=== PATIENT | male | born 1975 | race Caucasian/White ===

== ENCOUNTER 2017-04-27 11:13 | Inpatient (IN) | payer SELFPAY ==
[2017-04-27] VITALS (9 sets, daily range): BP systolic 118–147; BP diastolic 76–86; PULSE 56–79; RESP 16–18; TEMP 97.3–99.3; O2SAT 95–100
[~2017-04-27] VITALS: Ht 175.3 cm; Wt 98.3 kg
[~2017-04-27 11:13] MED LIST: ALPR.25 PO; AMBI10TA PO; GABA300C5 PO; HYDR-3366 PO; HYDR50CA PO; LAMO25TA PO; LITH300C2 PO
[2017-04-27] MEDS ORDERED: MORPHINE SULFATE 4 MG/ML INJ IV PUSH ONE ×2 (11:30→12:15)
[2017-04-27] MEDS ORDERED: SODIUM CHLORIDE 0.9% FLUSH 10 ML FLUSH IVF PRN (11:30)
[2017-04-27 11:59] LABS: AUTOMATED NEUTROPHIL # 11.9 TH/MM3 (1.8-7.7); BASOPHIL # 0.1 TH/MM3 (0-0.2); BASOPHIL % 0.8 % (0.0-2.0); EOSINOPHIL # 0.2 TH/MM3 (0-0.4); EOSINOPHIL % 1.2 % (0.0-4.0); HEMATOCRIT 41.4 % (39.0-51.0); HEMO FLAGS DIFF FINAL; LYMPH % 13.7 % (9.0-44.0); LYMPHOCYTE # 2.1 TH/MM3 (1.0-4.8); MEAN CELL VOLUME 88.5 FL (80.0-100.0); MEAN CORPUSCULAR HEMOGLOBIN 29.3 PG (27.0-34.0); MEAN CORPUSCULAR HGB CONC 33.1 % (32.0-36.0); MONO % 6.3 % (0.0-8.0); PLATELET COUNT 288 TH/MM3 (150-450); RED BLOOD COUNT 4.68 MIL/MM3 (4.50-5.90); RED CELL DISTRIBUTION WIDTH 13.9 % (11.6-17.2); WHITE BLOOD COUNT 15.2 TH/MM3 (4.0-11.0)
[2017-04-27 12:13] LABS: INTERNATIONAL NORMALIZED RATIO 0.8 RATIO; PROTHROMBIN TIME - PATIENT 9.3 SEC (9.8-11.6)
--- NOTE | 2017-04-27 12:15 | RADRPT ---
EXAM DATE/TIME: 04/27/2017 11:55 [facility] COMPARISON: CHEST SINGLE AP, January 03, 2016, 10:49. INDICATIONS : Chest pain today. MEDICAL HISTORY : Myocardial infarction. Lymphoma. Asthma. SURGICAL HISTORY : Exc. abdominal lymphoma. Right lower leg amputation. ENCOUNTER: Initial ACUITY: 1 day PAIN SCORE: 10/10 LOCATION: Bilateral chest FINDINGS: Single AP view of the chest. Right paratracheal asymmetry with mass effect on the trachea. Lungs are clear. Cardiac silhouette within normal limits. No evidence of pleural effusion or pneumothorax. CONCLUSION: Possible right paratracheal mass. Recommend chest CT with contrast for further evaluation if this is not a known finding. Nico Hendrickson MD on April 27, 2017 at 12:11 Board Certified Radiologist. This report was verified electronically.
[2017-04-27 12:20] LABS: APTT (PATIENT) 24.9 SEC (24.3-30.1)
[2017-04-27 12:21] LABS: ALT (GPT) 43 U/L (12-78)
[2017-04-27 12:28] LABS: ALKALINE PHOSPHATASE 116 U/L (45-117); ANION GAP 8 MEQ/L (5-15); AST (GOT) 44 U/L (15-37); BICARBONATE 21.2 MEQ/L (21.0-32.0); BLOOD UREA NITROGEN 10 MG/DL (7-18); CHLORIDE 109 MEQ/L (98-107); CREATINE KINASE 156 U/L (39-308); GLOMERULAR FILTRATION RATE 91 ML/MIN (>89); MAGNESIUM 2.2 MG/DL (1.5-2.5); SODIUM (NA) 138 MEQ/L (136-145); TOTAL BILIRUBIN ADULT 0.4 MG/DL (0.2-1.0)
[2017-04-27 12:29] LABS: POTASSIUM 5.2 MEQ/L (3.5-5.1)
[2017-04-27 12:57] LABS: CKMB LESS THAN 0.5 NG/ML (0.5-3.6)
--- NOTE | 2017-04-27 13:34 | PD ---
HPI Chief Complaint: Chest Pain Time Seen by Provider: 11:25 Travel History International Travel<30 days: No Contact w/Intl Traveler<30days: No Traveled to known affect area: No History of Present Illness HPI Patient is a 41-year-old male presents emergency department with sharp chest pain the middle of his chest without radiation. Patient states he has a history of heart attack in the past and did not require stents but feels very similar. Patient states he also has a history of lymphoma. Does not endorse any weight loss hemoptysis or shortness of breath. Mild nausea without vomiting. No diarrhea no constipation ability pain. Patient states symptoms been going on for the past few hours and gradually worsening. Symptoms are moderate to severe. PFSH Past Medical History Hx Anticoagulant Therapy: No Anxiety: Yes Depression: Yes Cancer: Yes (lymphoma surgery 5 yrs ago) Cardiovascular Problems: Yes (NE X2 ) Chemotherapy: Yes (10 YEARS AGO, LYMPHOMA) Cerebrovascular Accident: Yes (HEAT STROKE) Diabetes: No Diminished Hearing: No Endocrine: No Gastrointestinal Disorders: No Genitourinary: No Hepatitis: No Hiatal Hernia: No Immune Disorder: No Musculoskeletal: No Neurologic: No Psychiatric: Yes (bipolar) Reproductive: No Respiratory: Yes (ASTHMA) Immunizations Current: Yes Thyroid Disease: No Tetanus Vaccination: < 5 Years Past Surgical History Abdominal Surgery: Yes (EXC. ABDOMINAL LYMPHOMA) AICD: No Cardiac Surgery: Yes (EXC. LYMPHOMA HEART WALL (2005)) Ear Surgery: No Endocrine Surgery: No Eye Surgery: No Genitourinary Surgery: No Gynecologic Surgery: No Joint Replacement: No Oral Surgery: No Pacemaker: No Thoracic Surgery: No Social History Alcohol Use: No Tobacco Use: No Substance Use: Yes (Marijuana, daily) Allergies-Medications (Allergen,Severity, Reaction): Coded Allergies: No Known Allergies (Verified , 07/13/16) Reported Meds & Prescriptions Reported Meds & Active Scripts Active [place] Carbonate 300 Mg Cap 300 Mg PO BID 14 Days Please see psychaitrist soon to refill this medication Reported [place] (Hydrocodone-Acetaminophen) 10-325 Mg Tab 1 Tab PO Q4H PRN Gabapentin 300 Mg Cap 400 Mg PO TID Review of Systems Except as stated in HPI: all other systems reviewed are Neg Physical Exam Narrative GENERAL: Well-developed well-nourished, uncomfortable.] SKIN: Focused skin assessment warm/dry. HEAD: Atraumatic. Normocephalic. EYES: Pupils equal and round. No scleral icterus. No injection or drainage. ENT: No nasal bleeding or discharge. Mucous membranes pink and moist. NECK: Trachea midline. No JVD. CARDIOVASCULAR: Regular rate and rhythm. No murmur appreciated. 2+ bilateral equal pulses in all 4 extremities, patient has pain with palpation to his anterior chest. RESPIRATORY: No accessory muscle use. Clear to auscultation. Breath sounds equal bilaterally. GASTROINTESTINAL: Abdomen soft, non-tender, nondistended. Hepatic and splenic margins not palpable. MUSCULOSKELETAL: No obvious deformities. No clubbing. No cyanosis. No edema. Patient has evidence of BKA on the left. NEUROLOGICAL: Awake and alert. No obvious cranial nerve deficits. Motor grossly within normal limits. Normal speech. PSYCHIATRIC: Appropriate mood and affect; insight and judgment normal. Data Data Last Documented VS Vital Signs Date Time Temp Pulse Resp B/P Pulse Ox O2 Delivery O2 Flow Rate FiO2 04/27/17 16:00 95 Nasal Cannula 1.00 04/27/17 15:44 16 04/27/17 12:44 68 141/84 04/27/17 11:39 97.3 Orders Electrocardiogram (04/27/17 11:29) Ckmb (Isoenzyme) Profile (04/27/17 11:29) Complete Blood Count With Diff (04/27/17 11:29) Comprehensive Metabolic Panel (04/27/17 11:29) Magnesium (Mg) (04/27/17 11:29) Prothrombin Time / Inr (Pt) (04/27/17 11:29) Act Partial Throm Time (Ptt) (04/27/17 11:29) Troponin I (04/27/17 11:29) Lipase (04/27/17 11:29) Chest, Single Ap (04/27/17 11:29) Ecg Monitoring (04/27/17 11:29) Bilateral Bp Monitoring (04/27/17 11:29) Iv Access Insert/Monitor (04/27/17 11:29) Oximetry (04/27/17 11:29) Oxygen Administration (04/27/17 11:29) Morphine Inj (Morphine Inj) (04/27/17 11:30) Sodium Chloride 0.9% Flush (Ns Flush) (04/27/17 11:30) Morphine Inj (Morphine Inj) (04/27/17 12:15) Ct Pulmonary Angiogram (04/27/17 ) CKMB (04/27/17 11:30) CKMB% (04/27/17 11:30) Metoclopramide Inj (Reglan Inj) (04/27/17 14:00) Iohexol 350 Inj (Omnipaque 350 Inj) (04/27/17 14:07) Hydromorphone Pf Inj (Dilaudid Pf Inj) (04/27/17 15:00) Admit To Inpatient (04/27/17 ) Vital Signs (Adult) Q4H (04/27/17 15:46) Activity Oob With Assistance (04/27/17 15:46) Diet Regular Basic (04/27/17 Dinner) Sodium Chloride 0.9% Flush (Ns Flush) (04/27/17 16:00) Sodium Chloride 0.9% Flush (Ns Flush) (04/27/17 21:00) Acetaminophen (Tylenol) (04/27/17 16:00) Ondansetron Inj (Zofran Inj) (04/27/17 16:00) Basic Metabolic Panel (Bmp) (04/28/17 06:00) Complete Blood Count With Diff (04/28/17 06:00) Resp Oxygen Alf C Titrat 1-4 L (04/27/17 ) Heparin Inj (Heparin Inj) (04/27/17 17:00) Naloxone Inj (Narcan Inj) (04/27/17 16:00) Docusate Sodium-Senna ([place]-Colace) (04/27/17 21:00) Magnesium Hydroxide Liq (Milk Of Magnesi (04/27/17 16:00) Sennosides (Senokot) (04/27/17 16:00) Bisacodyl Supp (Dulcolax Supp) (04/27/17 16:00) Lactulose Liq (Lactulose Liq) (04/27/17 16:00) Inpatient Certification (04/27/17 ) Consult Cardiothoracic Surgery (04/27/17 ) Consult Medical Oncology (04/27/17 ) Oxycodone-Acetamin 7.5-325 Mg (Percocet (04/27/17 16:30) Hydromorphone Pf Inj (Dilaudid Pf Inj) (04/27/17 16:30) Admit Order (Ed Use Only) (04/27/17 ) Labs Laboratory Tests Test 04/27/17 11:30 White Blood Count 15.2 TH/MM3 Red Blood Count 4.68 MIL/MM3 Hemoglobin 13.7 GM/DL Hematocrit 41.4 % Mean Corpuscular Volume 88.5 FL Mean Corpuscular Hemoglobin 29.3 PG Mean Corpuscular Hemoglobin 33.1 % Concent Red Cell Distribution Width 13.9 % Platelet Count 288 TH/MM3 Mean Platelet Volume 8.3 FL Neutrophils (%) (Auto) 78.0 % Lymphocytes (%) (Auto) 13.7 % Monocytes (%) (Auto) 6.3 % Eosinophils (%) (Auto) 1.2 % Basophils (%) (Auto) 0.8 % Neutrophils # (Auto) 11.9 TH/MM3 Lymphocytes # (Auto) 2.1 TH/MM3 Monocytes # (Auto) 1.0 TH/MM3 Eosinophils # (Auto) 0.2 TH/MM3 Basophils # (Auto) 0.1 TH/MM3 CBC Comment DIFF FINAL Differential Comment Prothrombin Time 9.3 SEC Prothromb Time International 0.8 RATIO Ratio Activated Partial 24.9 SEC Thromboplast Time Sodium Level 138 MEQ/L Potassium Level 5.2 MEQ/L Chloride Level 109 MEQ/L Carbon Dioxide Level 21.2 MEQ/L Anion Gap 8 MEQ/L Blood Urea Nitrogen 10 MG/DL Creatinine 0.92 MG/DL Estimat Glomerular Filtration 91 ML/MIN Rate Random Glucose 101 MG/DL Calcium Level 9.0 MG/DL Magnesium Level 2.2 MG/DL Total Bilirubin 0.4 MG/DL Aspartate Amino Transf 44 U/L (AST/SGOT) Alanine Aminotransferase 43 U/L (ALT/SGPT) Alkaline Phosphatase 116 U/L Total Creatine Kinase 156 U/L Creatine Kinase MB LESS THAN 0.5 NG/ML Troponin I LESS THAN 0.02 NG/ML Total Protein 7.5 GM/DL Albumin 3.5 GM/DL Lipase 103 U/L [facility] Medical Decision Making Medical Screen Exam Complete: Yes Emergency Medical Condition: Yes Interpretation(s) EKG shows sinus bradycardia with a rate of 56 with a normal axis normal R-wave progression. First degree heart block with a AL interval of 209. Otherwise intervals within normal limits. No concerning ST T changes. This borderline EKG. Differential Diagnosis ACS seems unlikely, acute NE seems unlikely, PE, recurrent lymphoma. Narrative Course Patient was roomed emergency department, multiple doses of IV narcotics were given. He did receive nitroglycerin in route which did not relieve his pain. Patient's labs are reassuring, EKG reassuring, troponin negative. He does have indications for PE study given he has a history of BKA. Patient tells me he does not use cocaine however cocaine abuse is on his chart. Last 24 hours Impressions Chest X-Ray 04/27/17 1129 Signed Impressions: Service Date/Time: Thursday, April 27, 2017 11:55 - CONCLUSION: Possible right paratracheal mass. Recommend chest CT with contrast for further evaluation if this is not a known finding. Nico Hendrickson MD CT Angiography 04/27/17 0000 Signed Impressions: Service Date/Time: Thursday, April 27, 2017 13:58 - CONCLUSION: 1. 4.2 x 5.5 cm right paratracheal mass lesion which displaces the trachea leftward. This appears isolated. 2. Bibasilar atelectatic changes with no confluent infiltrate or pulmonary embolus. Aki Edwards MD Results were discussed with the patient and he is notably upset. I discussed that he should be admitted for further workup at this time and he is agreeable. Patient was discussed with Dr. Gomez who will admit. Diagnosis Primary Impression: Peritracheal mass Additional Impressions: History of lymphoma Chest pain Qualified Code: R07.9 - Chest pain, unspecified type Admitting Information Admitting Physician Requests: Admit Condition: Stable Rajesh Vega MD April 27, 2017 13:34
[2017-04-27] MEDS ORDERED: METOCLOPRAMIDE HCL 10 MG/2 ML VIAL IV PUSH ONE (14:00)
[2017-04-27] MEDS ORDERED: IOHEXOL 350 MG/ML 10 ML VIAL (for RAD DIAG) IV ONE (14:07)
--- NOTE | 2017-04-27 14:36 | RADRPT ---
EXAM DATE/TIME: 04/27/2017 13:58 [facility] COMPARISON: No previous studies available for comparison. INDICATIONS : Chest pain, dyspnea IV CONTRAST: 75 cc Omnipaque 350 (iohexol) IV RADIATION DOSE: 4.66 CTDIvol (mGy) MEDICAL HISTORY : Cardiovascular disease. Lymphoma. SURGICAL HISTORY : Right AKA ENCOUNTER: Initial ACUITY: 1 day PAIN SCALE: 5/10 LOCATION: chest TECHNIQUE: Volumetric scanning of the chest was performed using a pulmonary embolism protocol MIP images were re constructed. Using automated exposure control and adjustment of the mA and/or kV according to patien t size, radiation dose was kept as low as reasonably achievable to obtain optimal diagnostic quality images. FINDINGS: PULMONARY ARTERIES: No filling defects are seen in the pulmonary arteries through the segmental level. LUNGS: Mild dependent atelectatic changes bilaterally. No pneumothorax or infiltrate. No concerning pulmona ry nodule is visualized. PLEURAE: There is no pleural thickening or pleural effusion. MEDIASTINUM: Large, apparently isolated 4.2 x 5.5 cm mediastinal mass lesion in the right paratracheal distributio n. This displaces the trachea leftward. No additional adenopathy identified. MUSCULOSKELETAL: Within normal limits for patient age. MISCELLANEOUS: The visualized upper abdominal organs demonstrate no acute abnormality. CONCLUSION: 1. 4.2 x 5.5 cm right paratracheal mass lesion which displaces the trachea leftward. This appears iso lated. 2. Bibasilar atelectatic changes with no confluent infiltrate or pulmonary embolus. Aki Edwards MD on April 27, 2017 at 14:25 Board Certified Radiologist. This report was verified electronically.
[2017-04-27] MEDS ORDERED: HYDROmorphone HCL PF 1 MG/ML VIAL IV PUSH ONE ×2 (15:00→21:15)
[2017-04-27] MEDS ORDERED: ACETAMINOPHEN 325 MG TAB PO PRN (16:00)
[2017-04-27] MEDS ORDERED: MAGNESIUM HYDROXIDE SUSP 30 ML CUP PO PRN (16:00)
[2017-04-27] MEDS ORDERED: LACTULOSE SYRUP 20 GM/30 ML CUP PO PRN (16:00)
[2017-04-27] MEDS ORDERED: SENNOSIDES 8.6 MG TAB PO PRN (16:00)
[2017-04-27] MEDS ORDERED: SODIUM CHLORIDE 0.9% FLUSH 10 ML FLUSH IV FLUSH PRN (16:00)
[2017-04-27] MEDS ORDERED: NALOXONE HCL 0.4 MG/ML AMP IV PRN (16:00)
[2017-04-27] MEDS ORDERED: BISACODYL 10 MG SUPP RECTAL PRN (16:00)
[2017-04-27] MEDS ORDERED: HEPARIN SODIUM - SQ 10,000 UNITS/ML VIAL SQ SCH (17:00)
[2017-04-27] MEDS: HYDROmorphone HCL PF 1 MG/ML VIAL IV PUSH PRN (17:53)
[2017-04-27] MEDS: oxyCODONE/ACETAMINOPHEN 7.5 MG/325 MG TAB PO PRN (18:24)
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
[2017-04-27] MEDS: SODIUM CHLORIDE 0.9% FLUSH 10 ML FLUSH IV FLUSH SCH (20:08)
[2017-04-27] MEDS: DOCUSATE SODIUM 50 MG/SENNA 8.6 MG TAB PO SCH (20:08)
[2017-04-27] MEDS: ONDANSETRON HCL 4 MG/2 ML VIAL IVP PRN (21:23)
[2017-04-27] MEDS ORDERED: LITHIUM CARBONATE 300 MG TAB PO ONE (22:15)
[2017-04-28] VITALS (9 sets, daily range): BP systolic 114–129; BP diastolic 66–78; PULSE 72–84; RESP 16; TEMP 98–99.9; O2SAT 94–98
[2017-04-28] MEDS: HYDROmorphone HCL PF 1 MG/ML VIAL IV PUSH PRN ×8 (00:16→21:29)
[2017-04-28] MEDS: ONDANSETRON HCL 4 MG/2 ML VIAL IVP PRN ×3 (03:27→20:07)
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
[2017-04-28 07:30] LABS: AUTOMATED NEUTROPHIL # 17.3 TH/MM3 (1.8-7.7); BASOPHIL % 0.1 % (0.0-2.0); EOSINOPHIL % 0.2 % (0.0-4.0); HEMATOCRIT 43.2 % (39.0-51.0); HEMO FLAGS DIFF FINAL; LYMPH % 8.8 % (9.0-44.0); LYMPHOCYTE # 1.8 TH/MM3 (1.0-4.8); MEAN CELL VOLUME 88.9 FL (80.0-100.0); MEAN CORPUSCULAR HEMOGLOBIN 29.1 PG (27.0-34.0); MEAN CORPUSCULAR HGB CONC 32.8 % (32.0-36.0); MONO % 8.5 % (0.0-8.0); NEUT % 82.4 % (16.0-70.0); PLATELET COUNT 293 TH/MM3 (150-450); RED BLOOD COUNT 4.86 MIL/MM3 (4.50-5.90); RED CELL DISTRIBUTION WIDTH 14.1 % (11.6-17.2)
[2017-04-28 08:00] LABS: BICARBONATE 27.4 MEQ/L (21.0-32.0); POTASSIUM 3.5 MEQ/L (3.5-5.1)
[2017-04-28] MEDS ORDERED: LORazepam 2 MG/ML VIAL IV PUSH ONE (08:00)
[2017-04-28] MEDS ORDERED: MORPHINE SULFATE 4 MG/ML INJ IV PUSH ONE (08:00)
[2017-04-28] MEDS ORDERED: LIDOCAINE HCL 2% 50 ML VIAL ONE (08:05)
[2017-04-28] MEDS ORDERED: LIDOCAINE HCL 1% 20 ML VIAL INFIL ONE (08:15)
[2017-04-28] MEDS ORDERED: LIDOCAINE HCL 2% 20 ML VIAL INFIL ONE (08:15)
[2017-04-28] MEDS: DOCUSATE SODIUM 50 MG/SENNA 8.6 MG TAB PO SCH ×2 (08:42→23:06)
[2017-04-28] MEDS: SODIUM CHLORIDE 0.9% FLUSH 10 ML FLUSH IV FLUSH SCH ×2 (08:42→23:07)
[2017-04-28] MEDS ORDERED: DIATRIZOATE MEGLUM/DIATRIZOATE SOD 9 ML CUP PO ONE (09:30)
--- NOTE | 2017-04-28 09:47 | PD.ONC.PN ---
Subjective Subjective Remarks Afebrile overnight. Patient resting comfortably in bed. Continues to have pain in his chest, especially when he lays on it. Objective Data Date Time Temp Pulse Resp B/P Pulse Ox O2 Delivery O2 Flow Rate FiO2 04/28/17 09:14 94 Nasal Cannula 2.50 04/28/17 04:00 99.9 77 16 129/70 98 04/28/17 00:13 98 Nasal Cannula 3.00 04/27/17 23:40 98.7 79 16 118/76 97 04/27/17 20:11 66 04/27/17 18:57 99.3 70 16 136/86 96 04/27/17 18:27 65 18 134/78 99 Nasal Cannula 2 04/27/17 18:24 18 04/27/17 16:00 95 Nasal Cannula 1.00 04/27/17 15:44 16 04/27/17 13:14 16 04/27/17 12:44 68 18 141/84 97 Room Air 04/27/17 11:59 16 04/27/17 11:45 20 100 Nasal Cannula 2 04/27/17 11:44 68 145/81 04/27/17 11:39 100 Nasal Cannula 2 04/27/17 11:39 97.3 66 16 147/86 100 Nasal Cannula 2 04/27/17 11:27 97.3 56 16 147/86 100 Result Diagram: 04/28/17 0651 04/28/17 0651 Laboratory Results Laboratory Tests Test 04/27/17 04/27/17 04/28/17 11:30 22:55 06:51 White Blood Count 15.2 TH/MM3 21.0 TH/MM3 Red Blood Count 4.68 MIL/MM3 4.86 MIL/MM3 Hemoglobin 13.7 GM/DL 14.2 GM/DL Hematocrit 41.4 % 43.2 % Mean Corpuscular Volume 88.5 FL 88.9 FL Mean Corpuscular Hemoglobin 29.3 PG 29.1 PG Mean Corpuscular Hemoglobin 33.1 % 32.8 % Concent Red Cell Distribution Width 13.9 % 14.1 % Platelet Count 288 TH/MM3 293 TH/MM3 Mean Platelet Volume 8.3 FL 8.2 FL Neutrophils (%) (Auto) 78.0 % 82.4 % Lymphocytes (%) (Auto) 13.7 % 8.8 % Monocytes (%) (Auto) 6.3 % 8.5 % Eosinophils (%) (Auto) 1.2 % 0.2 % Basophils (%) (Auto) 0.8 % 0.1 % Neutrophils # (Auto) 11.9 TH/MM3 17.3 TH/MM3 Lymphocytes # (Auto) 2.1 TH/MM3 1.8 TH/MM3 Monocytes # (Auto) 1.0 TH/MM3 1.8 TH/MM3 Eosinophils # (Auto) 0.2 TH/MM3 0.0 TH/MM3 Basophils # (Auto) 0.1 TH/MM3 0.0 TH/MM3 CBC Comment DIFF FINAL DIFF FINAL Differential Comment Prothrombin Time 9.3 SEC Prothromb Time International 0.8 RATIO Ratio Activated Partial 24.9 SEC Thromboplast Time Sodium Level 138 MEQ/L 135 MEQ/L Potassium Level 5.2 MEQ/L 3.5 MEQ/L Chloride Level 109 MEQ/L 100 MEQ/L Carbon Dioxide Level 21.2 MEQ/L 27.4 MEQ/L Anion Gap 8 MEQ/L 8 MEQ/L Blood Urea Nitrogen 10 MG/DL 7 MG/DL Creatinine 0.92 MG/DL 0.90 MG/DL Estimat Glomerular Filtration 91 ML/MIN 93 ML/MIN Rate Random Glucose 101 MG/DL 125 MG/DL Calcium Level 9.0 MG/DL 9.1 MG/DL Magnesium Level 2.2 MG/DL Total Bilirubin 0.4 MG/DL Aspartate Amino Transf 44 U/L (AST/SGOT) Alanine Aminotransferase 43 U/L (ALT/SGPT) Alkaline Phosphatase 116 U/L Total Creatine Kinase 156 U/L Creatine Kinase MB LESS THAN 0.5 NG/ML Troponin I LESS THAN 0.02 NG/ML Total Protein 7.5 GM/DL Albumin 3.5 GM/DL Lipase 103 U/L [place] Level 0.3 MEQ/L Imaging Studies Last 24 hours Impressions Chest X-Ray 04/27/17 1129 Signed Impressions: Service Date/Time: Thursday, April 27, 2017 11:55 - CONCLUSION: Possible right paratracheal mass. Recommend chest CT with contrast for further evaluation if this is not a known finding. Nico Hendrickson MD Administered Medications Medications (Trade) Dose Ordered Sig/Dorothy Route PRN Reason Start Time Stop Time Status Last Admin Dose Admin Sodium Chloride (NS Flush) 2 ml BID IV FLUSH 04/27/17 21:00 04/28/17 08:42 Ondansetron HCl (Zofran Inj) 4 mg Q6H PRN IVP NAUSEA OR VOMITING 04/27/17 16:00 04/28/17 03:27 Heparin Sodium (Porcine) (Heparin Inj) 5,000 units Q12H SQ 04/27/17 17:00 Hold 04/27/17 18:24 Oxycodone/ Acetaminophen (Percocet 7.5-325 Mg) 1 tab Q6H PRN PO PAIN SCALE 5 TO 10 04/27/17 16:30 04/27/17 18:24 Hydromorphone HCl (Dilaudid Pf Inj) 0.5 mg Q3H PRN IV PUSH pain >5 if pt cant swallow 04/28/17 03:30 04/28/17 06:37 Objective Remarks GENERAL: Young man, lying in bed in nad. SKIN: Warm and dry. HEAD: Normocephalic. EYES: No scleral icterus. No injection or drainage. NECK: Supple, trachea midline. EXTREMITIES: No cyanosis, or edema. MUSCULOSKELETAL: Adequate muscle tone. NEUROLOGICAL: No obvious focal deficit. Awake, alert, and oriented x3. Assessment/Plan Problem List: (1) History of lymphoma Status: Acute Plan: --history of Hodgkin's disease diagnosed at the age of 21. He had constitutional symptoms of fevers, sweats and weight loss. He was treated at [facility]. He has no records of his lymphoma. He reports taking chemotherapy with no radiation, does not know the chemotherapy that he was administered at the age of 21. He presents to the hospital with chest pains. He apparently woke up with an "elephant on his chest". He tried to get his inhaler from the car and fell. He was brought in by ambulance. Imaging study including a CT angiogram showed a 4.2 x 5.5, mediastinal mass lesion in the right paratracheal distribution. It displaces the trachea leftward. No pulmonary embolism. He described sweats. he has had sweats for many years. He denies any overt fevers. He is not aware of weight loss. Assessment 41y/o male with a history of Hodgkin's lymphoma admitted with 4.2 x 5.5-cm right paratracheal mass. h/o Hodgkin's disease, unknown stage. Bipolar disorder. Asthma. Plan 1. CT abdomen and pelvis to rule out evidence of Hodgkin's disease or lymphoma below the diaphragm. 2. bone marrow biopsy attempted at bedside was abandoned due to poor patient tolerance. will consult invasive radiology to perform bone marrow biopsy under anesthesia. I spoke with CT this morning and they will probably not be able to do procedure today--so we will allow patient to eat today and make him NPO tonight. 3. UPDATE: discussed with invasive radiologist--they would prefer for CTS to perform biopsy of paratracheal mass, will await CTS consult. Attending Statement The exam, history, and the medical decision-making described in the above note were completed with the assistance of the mid-level provider. I reviewed and agree with the findings presented. I attest that I had a [id number] encounter with the patient on the same day, and personally performed and documented my assessment and findings in the medical record. Pt unable to tolerate bone marrow biopsy at bedside. Secondary gain to get more pain medication. Screamed of more pain - after additional pain medicine given. Staging biopsy aborted. Defer to radiology and Dr. Fernandez to obtain biopsy to confirm diagnosis of lymphoma. Procedure Note Procedure Procedure Bone marrow Aspiration and Biopsy Procedure Performed by: Dr. Veronica Herzog and Princess Martinez PA-C Risks and benefits of the procedure were discussed with the patient. Consent was obtained and signed by the patient. The patient was given Morphine 2mg IV and Ativan 0.5mg PO as pre-medication. The patient was placed in the prone position. Sterile technique was followed. The site was prepped with Betadine and sterilely draped. Approximately 5 cc 1% lidocaine was used for local anesthesia. The patient continued to be uncomfortable during the administration of lidocaine despite the administration of an additional 2mg of morphine IV during the procedure. The procedure was stopped, the area cleaned and a sterile bandage applied. Discussed with patient we will consult invasive radiology so he can have the procedure done under anesthesia. The patient thanked us and was agreeable to this plan. Princess Martinez Apr 28, 2017 09:47 Veronica Herzog MD Apr 28, 2017 18:11
[2017-04-28] MEDS: LITHIUM CARBONATE 300 MG TAB PO SCH ×2 (09:54→23:06)
--- NOTE | 2017-04-28 10:20 | HHI.PR ---
Subjective Remarks Follow up for paratracheal mass in patient with a history of Hodgkin's lymphoma. Patient is currently doing well. He could not tolerate bone marrow bx this morning. He reports some night sweats. Objective Vitals Vital Signs Date Time Temp Pulse Resp B/P Pulse Ox O2 Delivery O2 Flow Rate FiO2 04/28/17 09:14 94 Nasal Cannula 2.50 04/28/17 09:00 99.3 84 16 129/73 95 04/28/17 04:00 99.9 77 16 129/70 98 04/28/17 00:13 98 Nasal Cannula 3.00 04/27/17 23:40 98.7 79 16 118/76 97 04/27/17 20:11 66 04/27/17 18:57 99.3 70 16 136/86 96 04/27/17 18:27 65 18 134/78 99 Nasal Cannula 2 04/27/17 18:24 18 04/27/17 16:00 95 Nasal Cannula 1.00 04/27/17 15:44 16 04/27/17 13:14 16 04/27/17 12:44 68 18 141/84 97 Room Air 04/27/17 11:59 16 04/27/17 11:45 20 100 Nasal Cannula 2 04/27/17 11:44 68 145/81 04/27/17 11:39 100 Nasal Cannula 2 04/27/17 11:39 97.3 66 16 147/86 100 Nasal Cannula 2 04/27/17 11:27 97.3 56 16 147/86 100 I/O 04/27/17 04/27/17 04/27/17 04/28/17 04/28/17 04/28/17 07:00 15:00 23:00 07:00 15:00 23:00 Output Total 500 ml Balance -500 ml Output Urine Total 500 ml Result Diagram: 04/28/17 0651 04/28/17 0651 Imaging Last Impressions Chest X-Ray 04/27/17 1129 Signed Impressions: Service Date/Time: Thursday, April 27, 2017 11:55 - CONCLUSION: Possible right paratracheal mass. Recommend chest CT with contrast for further evaluation if this is not a known finding. Nico Hendrickson MD CT Angiography 04/27/17 0000 Signed Impressions: Service Date/Time: Thursday, April 27, 2017 13:58 - CONCLUSION: 1. 4.2 x 5.5 cm right paratracheal mass lesion which displaces the trachea leftward. This appears isolated. 2. Bibasilar atelectatic changes with no confluent infiltrate or pulmonary embolus. Aki Edwards MD Objective Remarks GENERAL: Alert, oriented 3, NAD. SKIN: Warm and dry. HEAD: Normocephalic. EYES: No scleral icterus. No injection or drainage. NECK: Supple, trachea midline. No JVD or lymphadenopathy. CARDIOVASCULAR: Regular rate and rhythm without murmurs, gallops, or rubs. RESPIRATORY: Breath sounds equal bilaterally. No accessory muscle use. GASTROINTESTINAL: Abdomen soft, non-tender, nondistended. MUSCULOSKELETAL: No cyanosis, or edema. Bilateral lower extremity BKA BACK: Nontender without obvious deformity. No CVA tenderness. Procedures Bone marrow biopsy attempted at bedside 04/28/2017 by hematology oncology. A/P Problem List: (1) Peritracheal mass ICD Code: R22.2 Status: Acute (2) History of Hodgkin's lymphoma ICD Code: Z85.71 Status: Acute Assessment and Plan Mr. Arguelles is a 41-year-old male with a history of Hodgkin's lymphoma who presents to the emergency department on 04/27/2017 due to difficulty breathing as well as mid chest pain from throat to epigastric area that started around 7: 30 AM this morning. Patient denies any B symptoms (fever, night sweats, weight loss). - Right-sided paratracheal mass 4.2 x 5.5 cm - History of Hodgkin's lymphoma - Chest x-ray and CT angiogram reviewed by myself on 04/27/2017. Imaging studies show right paratracheal mass pushing against the trachea to the left. - Currently patient is oxygenating well and maintaining airway. - Medical oncology as well as cardiothoracic surgery following - Tylenol, Percocet, IV Dilaudid for pain as needed. - CT abdomen pelvis pending. Invasive radiology consult pending for bone marrow biopsy. - Alcohol abuse - Tobacco abuse - Marijuana abuse - Counseled patient regarding substance abuse. Encouraged patient to consider quitting. Full code. Heparin on hold for anticipated procedures. Reilly Gomez DO Apr 28, 2017 10:19
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
--- NOTE | 2017-04-28 11:59 | EKG ---
Date Performed: 04/27/2017 Time Performed: 11:30:49 PTAGE: 41 years EKG: SINUS BRADYCARDIA BORDERLINE ECG Compared to prior tracing no significant change DOCTOR: Arsenio Glynn Interpretating Date/Time 04/28/2017 11:57:55
[2017-04-28] MEDS ORDERED: SODIUM CHLORIDE 0.9% FLUSH 10 ML FLUSH IV FLUSH PRN (14:15)
[2017-04-28] MEDS ORDERED: ceFAZolin 2 GM PREMIX 50 ML IV SCH (14:15)
[2017-04-28] MEDS ORDERED: CHLORHEXIDINE GLUCONATE 4% SOLN 120 ML BTL TOPICAL SCH (14:15)
[2017-04-28] MEDS ORDERED: IOHEXOL 350 MG/ML 10 ML VIAL (for RAD DIAG) IV ONE (19:21)
--- NOTE | 2017-04-28 19:46 | RADRPT ---
EXAM DATE/TIME: 04/28/2017 19:17 [place] COMPARISON: CT PULMONARY ANGIOGRAM, April 27, 2017, 13:58. CT ABDOMEN & PELVIS W CONTRAST, January 03, 2016, 11:1 3. INDICATIONS : Abnormal chest CT. Evaluate mass. IV CONTRAST: 80 cc Omnipaque 350 (iohexol) IV ORAL CONTRAST: Prescribed oral contrast ingested. RADIATION DOSE: 16.49 CTDIvol (mGy) MEDICAL HISTORY : Cardiovascular disease. Hodgkin's lymphoma. SURGICAL HISTORY : None. ENCOUNTER: Subsequent ACUITY: 2 days PAIN SCALE: 0/10 LOCATION: Abdomen TECHNIQUE: Volumetric scanning of the abdomen and pelvis was performed. Using automated exposure control and ad justment of the mA and/or kV according to patient size, radiation dose was kept as low as reasonably achievable to obtain optimal diagnostic quality images. FINDINGS: LOWER LUNGS: There has been the development of a tiny right effusion with bibasilar atelectasis. LIVER: Homogeneous density without lesion. There is no dilation of the biliary tree. No calcified gallston es. SPLEEN: Normal size without lesion. PANCREAS: Within normal limits. KIDNEYS: Normal in size and shape. There is no mass, stone or hydronephrosis. ADRENAL GLANDS: Within normal limits. VASCULAR: There is no aortic aneurysm. BOWEL/MESENTERY: The stomach, small bowel, and colon demonstrate no acute abnormality. There is no free intraperitone al air or fluid. ABDOMINAL WALL: Within normal limits. RETROPERITONEUM: There is no lymphadenopathy. BLADDER: No wall thickening or mass. REPRODUCTIVE: Within normal limits. INGUINAL: There is no lymphadenopathy or hernia. MUSCULOSKELETAL: Within normal limits for patient age. CONCLUSION: 1. Interval development of a tiny right effusion and bibasilar atelectasis. Otherwise, normal exam. Charbel Amaro Jr., MD on April 28, 2017 at 19:41 Board Certified Radiologist. This report was verified electronically.
[2017-04-28] MEDS ORDERED: METOCLOPRAMIDE HCL 10 MG/2 ML VIAL IV PUSH PRN (22:00)
[2017-04-28] MEDS ORDERED: PANTOPRAZOLE SODIUM 40 MG VIAL IV PUSH ONE (22:00)
[2017-04-28] MEDS ORDERED: SUCRALFATE 1 GM TAB PO ONE (22:00)
[2017-04-29] VITALS (14 sets, daily range): BP systolic 111–133; BP diastolic 69–79; PULSE 78–102; RESP 16–20; TEMP 98.4–99.7; O2SAT 93–98
[2017-04-29] MEDS: HYDROmorphone HCL PF 1 MG/ML VIAL IV PUSH PRN ×4 (00:47→18:29)
[2017-04-29 06:09] LABS: BLOOD, URINE NEG (NEG); COMMENT (UR) CULT NOT INDICATED; CULTURE IF INDICATED CULT NOT INDICATED; GLUCOSE,URINE NEG (NEG); KETONE, URINE NEG (NEG); MUCUS URINE MOD /lpf (OCC); NITRITE,URINE NEG (NEG); PH, URINE 6.5 (5.0-8.5); SQUAMOUS EPITHELIAL CELL URINE <1 /hpf (0-5); URINE COLOR YELLOW (YELLW/STRAW)
[2017-04-29] MEDS ORDERED: LIDOCAINE HCL 1% 20 ML VIAL ONE (08:53)
[2017-04-29] MEDS ORDERED: MIDAZOLAM HCL 5 MG/5 ML VIAL ONE (08:57)
[2017-04-29] MEDS ORDERED: fentaNYL CITRATE 250 MCG/5 ML AMP ONE (08:57)
--- NOTE | 2017-04-29 09:06 | PD.ONC.PN ---
Subjective Subjective Remarks Afebrile overnight. Patient resting comfortably in bed. Bone marrow biopsy this morning. Continues to have pain in chest, especially when he lays on the chest. Objective Data Date Time Temp Pulse Resp B/P Pulse Ox O2 Delivery O2 Flow Rate FiO2 04/29/17 04:34 18 04/29/17 04:00 99.2 83 20 121/75 98 04/29/17 01:22 98 Nasal Cannula 3.00 04/29/17 00:00 99.7 87 20 119/72 96 04/28/17 21:55 98.0 83 16 127/66 96 04/28/17 20:54 83 04/28/17 16:23 72 04/28/17 16:00 98.8 84 16 114/72 98 04/28/17 12:00 98.2 74 16 124/78 98 04/28/17 09:14 94 Nasal Cannula 2.50 04/29/17 04/29/17 04/29/17 07:00 15:00 23:00 Output Total 600 ml Balance -600 ml Result Diagram: 04/28/17 0651 04/28/17 0651 Laboratory Results Laboratory Tests Test 04/29/17 04/29/17 03:15 05:45 Nasal Screen MRSA (PCR) MRSA NOT DETECTED Urine Color YELLOW Urine Turbidity CLEAR Urine pH 6.5 Urine Specific [place] 1.025 Urine Protein 30 mg/dL Urine Glucose (UA) NEG mg/dL Urine Ketones NEG mg/dL Urine Occult Blood NEG Urine Nitrite NEG Urine Bilirubin NEG Urine Urobilinogen LESS THAN 2.0 MG/DL Urine Leukocyte Esterase NEG Urine RBC 2 /hpf Urine WBC 2 /hpf Urine Squamous Epithelial <1 /hpf Cells Urine Mucus MOD /lpf Microscopic Urinalysis Comment CULT NOT INDICATED Administered Medications Medications (Trade) Dose Ordered Sig/Dorothy Route PRN Reason Start Time Stop Time Status Last Admin Dose Admin Ondansetron HCl (Zofran Inj) 4 mg Q6H PRN IVP NAUSEA OR VOMITING 04/27/17 16:00 04/28/17 20:07 Heparin Sodium (Porcine) (Heparin Inj) 5,000 units Q12H SQ 04/27/17 17:00 Hold 04/27/17 18:24 Senna/Docusate Sodium ([place]-Colace) 1 tab BID PO 04/27/17 21:00 04/28/17 23:06 Oxycodone/ Acetaminophen (Percocet 7.5-325 Mg) 1 tab Q6H PRN PO PAIN SCALE 5 TO 10 04/27/17 16:30 04/27/17 18:24 [place] Carbonate (Lithotabs) 300 mg Q12HR PO 04/28/17 09:00 04/28/17 23:06 Hydromorphone HCl (Dilaudid Pf Inj) 0.5 mg Q3H PRN IV PUSH pain >5 if pt cant swallow 04/28/17 03:30 04/29/17 03:55 Sodium Chloride (NS Flush) 2 ml BID IV FLUSH 04/28/17 21:00 04/28/17 23:07 Metoclopramide HCl (Reglan Inj) 5 mg Q8H PRN IV PUSH nausea not relieved by zofran 04/28/17 22:00 04/29/17 00:46 Objective Remarks GENERAL: Middle aged male, lying supine in bed in [facility] SKIN: Warm and dry. 3mm puncture wound, right iliac crest without bleeding or bruising. HEAD: Normocephalic. EYES: No injection or drainage. NECK: Supple, trachea midline. CARDIOVASCULAR: Regular rate and rhythm RESPIRATORY: Breath sounds equal bilaterally. No accessory muscle use. GASTROINTESTINAL: Abdomen soft, non-tender, nondistended. EXTREMITIES: No cyanosis NEUROLOGICAL: awake and alert, normal speech. moving all extremities. Assessment/Plan Problem List: (1) History of lymphoma Status: Acute Plan: --history of Hodgkin's disease diagnosed at the age of 21. He had constitutional symptoms of fevers, sweats and weight loss. He was treated at [facility]. He has no records of his lymphoma. He reports taking chemotherapy with no radiation, does not know the chemotherapy that he was administered at the age of 21. --presented to the hospital with chest pains. He apparently woke up with an "elephant on his chest". He tried to get his inhaler from the car and fell. He was brought in by ambulance. Imaging study including a CT angiogram showed a 4.2 x 5.5, mediastinal mass lesion in the right paratracheal distribution. It displaces the trachea leftward. No pulmonary embolism. He described sweats. he has had sweats for many years. He denies any overt fevers. He is not aware of weight loss. --CT ab/pelvis: no mets Assessment 41y/o male with a history of Hodgkin's lymphoma admitted with 4.2 x 5.5-cm right paratracheal mass. h/o Hodgkin's disease, unknown stage. Bipolar disorder. Asthma. Plan 1. bone marrow biopsy today 2. biopsy of paratracheal mass with CTS 3. monitor CBC Attending Statement The exam, history, and the medical decision-making described in the above note were completed with the assistance of the mid-level provider. I reviewed and agree with the findings presented. I attest that I had a [id number] encounter with the patient on the same day, and personally performed and documented my assessment and findings in the medical record. Pt seen and examined. Family at bedside. Answered many questions. BM biopsy done, await CTS surgery biopsy mediastinal mass. Follow pathology, recommendations pending results. Discussed differential diagnosis thymoma, recurrent Hodgkin's, Mediastinal B cell lymphoma. Princess Martinez Apr 29, 2017 09:06 Veronica Herzog MD Apr 29, 2017 19:55
[2017-04-29 10:51] LABS: BONE MARROW PROCESSING COMPLETE; IRON STAIN DONE; JENNER GIEMSA STAIN DONE
--- NOTE | 2017-04-29 12:19 | RADRPT ---
EXAM DATE/TIME: 04/29/2017 09:08 [facility] COMPARISON: No previous studies available for comparison. INDICATIONS : Hodgkin's disease. SEDATION TIME: 20 minutes BIOPSY SITE: Right iliac. MEDICATION(S): 1.) 5 mg midazolam (Versed) IV 2.) 250 mcg fentanyl (Sublimaze) IV DEVICE(S): 1.) 12 gauge Bone biopsy needle MEDICAL HISTORY : Lymphoma. Myocardial infarction. Inflammatory bowel disease. Asthma. SURGICAL HISTORY : None. ENCOUNTER: Initial ACUITY: 1 day PAIN SCORE: 0/10 LOCATION: Right iliac. A total of two core specimen(s) were obtained and sent to the laboratory for pathologic evaluation. PROCEDURE: 1. CT guided bone marrow biopsy. Prior to the procedure informed consent was obtained. Any appropriate prior imaging studies were rev iewed. Using automated exposure control and adjustment of the mA and/or kV according to patient size , radiation dose was kept as low as reasonably achievable to obtain optimal diagnostic quality images . The site was prepped in a sterile fashion. Full sterile technique was used, including cap, mask, nicko rile gloves and gown and a large sterile sheet. Hand hygiene and 2% chlorhexidine and/or betadine/al cohol prep was utilized per protocol for cutaneous antisepsis. The skin and subcutaneous tissues wer e infiltrated with local anesthetic solution. With CT guidance the previously identified target was localized. Biopsy was performed using the presc ribed needle as above. Following biopsy marrow aspiration was performed with repeat puncture. Adequa te hemostasis was obtained with compression at the puncture site. Follow-up CT scan reveals no hemorrhage. Conscious sedation was performed with the prescribed dosages and duration as above in the presence of an independent trained radiology nurse to assist in the monitoring of the patient. EKG and oximetry remained stable throughout the procedure. The patient tolerated the procedure well and there were no complications. The patient was sent to Radiology Outpatient Unit in stable condition. CONCLUSION: 1. Uncomplicated CT guided bone marrow aspirate. 2. Uncomplicated CT guided bone marrow biopsy. Kevin Felix MD FACR on April 29, 2017 at 12:17 Board Certified Radiologist. This report was verified electronically.
[2017-04-29] MEDS: PANTOPRAZOLE SODIUM 40 MG VIAL IV PUSH SCH (13:00)
[2017-04-29] MEDS: SODIUM CHLORIDE 0.9% FLUSH 10 ML FLUSH IV FLUSH SCH ×2 (13:01→22:16)
[2017-04-29] MEDS: LITHIUM CARBONATE 300 MG TAB PO SCH ×2 (13:01→22:16)
[2017-04-29] MEDS: DOCUSATE SODIUM 50 MG/SENNA 8.6 MG TAB PO SCH ×2 (13:01→22:16)
--- NOTE | 2017-04-29 14:02 | HHI.PR ---
Subjective Remarks Follow up for paratracheal mass in patient with a history of Hodgkin's lymphoma. Patient returned from radiology after bone marrow biopsy. Currently doing well. Denies any fever or chills. Family at bedside. Objective Vitals Vital Signs Date Time Temp Pulse Resp B/P Pulse Ox O2 Delivery O2 Flow Rate FiO2 04/29/17 11:05 78 16 123/69 95 04/29/17 10:35 80 16 111/75 95 04/29/17 10:05 83 16 115/73 95 04/29/17 09:50 98.6 89 16 133/72 93 04/29/17 09:27 97 Nasal Cannula 2.00 04/29/17 08:00 98.4 81 18 126/79 98 04/29/17 04:34 18 04/29/17 04:00 99.2 83 20 121/75 98 04/29/17 01:22 98 Nasal Cannula 3.00 04/29/17 00:00 99.7 87 20 119/72 96 04/28/17 21:55 98.0 83 16 127/66 96 04/28/17 20:54 83 04/28/17 16:23 72 04/28/17 16:00 98.8 84 16 114/72 98 I/O 04/28/17 04/28/17 04/28/17 04/29/17 04/29/17 04/29/17 07:00 15:00 23:00 07:00 15:00 23:00 Intake Total 480 ml Output Total 500 ml 600 ml Balance -500 ml 480 ml -600 ml Intake Oral 480 ml Output Urine Total 500 ml 600 ml # Bowel Movements 0 Result Diagram: 04/28/17 0651 04/28/17 0651 Imaging Last Impressions Bone Biopsy CT 04/29/17 0000 Signed Impressions: Service Date/Time: Saturday, April 29, 2017 09:08 - CONCLUSION: 1. Uncomplicated CT guided bone marrow aspirate. 2. Uncomplicated CT guided bone marrow biopsy. Kevin Felix MD FACR Abdomen/Pelvis CT 04/28/17 0000 Signed Impressions: Service Date/Time: April 19:17 - CONCLUSION: 1. Interval development of a tiny right effusion and bibasilar atelectasis. Otherwise, normal exam. Charbel Amaro Jr., MD Chest X-Ray 04/27/17 1129 Signed Impressions: Service Date/Time: Thursday, April 27, 2017 11:55 - CONCLUSION: Possible right paratracheal mass. Recommend chest CT with contrast for further evaluation if this is not a known finding. Nico Hendrickson MD CT Angiography 04/27/17 0000 Signed Impressions: Service Date/Time: Thursday, April 27, 2017 13:58 - CONCLUSION: 1. 4.2 x 5.5 cm right paratracheal mass lesion which displaces the trachea leftward. This appears isolated. 2. Bibasilar atelectatic changes with no confluent infiltrate or pulmonary embolus. Aki Edwards MD Objective Remarks GENERAL: Alert, oriented 3, NAD. SKIN: Warm and dry. HEAD: Normocephalic. EYES: No scleral icterus. No injection or drainage. NECK: Supple, trachea midline. No JVD or lymphadenopathy. CARDIOVASCULAR: Regular rate and rhythm without murmurs, gallops, or rubs. RESPIRATORY: Breath sounds equal bilaterally. No accessory muscle use. GASTROINTESTINAL: Abdomen soft, non-tender, nondistended. MUSCULOSKELETAL: No cyanosis, or edema. Bilateral lower extremity BKA BACK: Nontender without obvious deformity. No CVA tenderness. Procedures Bone marrow biopsy attempted at bedside 04/28/2017 by hematology oncology. A/P Problem List: (1) Peritracheal mass ICD Code: R22.2 Status: Acute (2) History of Hodgkin's lymphoma ICD Code: Z85.71 Status: Acute Assessment and Plan Mr. Arguelles is a 41-year-old male with a history of Hodgkin's lymphoma who presents to the emergency department on 04/27/2017 due to difficulty breathing as well as mid chest pain from throat to epigastric area that started around 7: 30 AM this morning. Patient denies any B symptoms (fever, night sweats, weight loss). - Right-sided paratracheal mass 4.2 x 5.5 cm - History of Hodgkin's lymphoma - Chest x-ray and CT angiogram reviewed by myself on 04/27/2017. Imaging studies show right paratracheal mass pushing against the trachea to the left. - Currently patient is oxygenating well and maintaining airway. - Medical oncology as well as cardiothoracic surgery following - Tylenol, Percocet, IV Dilaudid for pain as needed. - CT abdomen pelvis shows no acute findings. Invasive radiology performed Bone marrow Bx today. - Probable Mediastinoscopy with biopsy on Tuesday05/02/2017. - Alcohol abuse - Tobacco abuse - Marijuana abuse - Counseled patient regarding substance abuse. Encouraged patient to consider quitting. Full code. Heparin on hold due to procedures. Reilly Gomez DO Apr 29, 2017 2:02 pm
--- NOTE | 2017-04-29 16:11 | PD.CAR.PN ---
CVT Progress Note Subjective/Hospital Course: s/p ct guided bone BX today scheduled for cervical mediastinoscopy bx of paratracheal mass wednesday 05/02 Objective: GENERAL: SKIN: Warm and dry. HEAD: Normocephalic. EYES: No scleral icterus. No injection or drainage. NECK: Supple, trachea midline. No JVD or lymphadenopathy. CARDIOVASCULAR: Regular rate and rhythm without murmurs, gallops, or rubs. RESPIRATORY: Breath sounds equal bilaterally. No accessory muscle use. GASTROINTESTINAL: Abdomen soft, non-tender, nondistended. MUSCULOSKELETAL: No cyanosis, or edema. / right BKA BACK: Nontender without obvious deformity. No CVA tenderness. Vital Signs Date Time Temp Pulse Resp B/P Pulse Ox O2 Delivery O2 Flow Rate FiO2 04/29/17 12:00 98.7 82 16 127/76 97 04/29/17 11:05 78 16 123/69 95 04/29/17 10:35 80 16 111/75 95 04/29/17 10:05 83 16 115/73 95 04/29/17 09:50 98.6 89 16 133/72 93 04/29/17 09:27 97 Nasal Cannula 2.00 04/29/17 08:00 98.4 81 18 126/79 98 04/29/17 04:34 18 04/29/17 04:00 99.2 83 20 121/75 98 04/29/17 01:22 98 Nasal Cannula 3.00 04/29/17 00:00 99.7 87 20 119/72 96 04/28/17 21:55 98.0 83 16 127/66 96 04/28/17 20:54 83 04/28/17 16:23 72 Labs: Laboratory Tests Test 04/29/17 05:45 Urine Color YELLOW (YELLW/STRAW) Urine Turbidity CLEAR (CLEAR) Urine pH 6.5 (5.0-8.5) Urine Specific [place] 1.025 (1.002-1.035) Urine Protein 30 mg/dL (NEG-TRACE) Urine Glucose (UA) NEG mg/dL (NEG) Urine Ketones NEG mg/dL (NEG) Urine Occult Blood NEG (NEG) Urine Nitrite NEG (NEG) Urine Bilirubin NEG (NEG) Urine Urobilinogen LESS THAN 2.0 MG/DL (LESS THAN 2.0) Urine Leukocyte Esterase NEG (NEG) Urine RBC 2 /hpf (0-3) Urine WBC 2 /hpf (0-5) Urine Squamous Epithelial <1 /hpf (0-5) Cells Urine Mucus MOD /lpf (OCC) Microscopic Urinalysis Comment CULT NOT INDICATED Result Diagram: 04/28/1765004/28/17650 (1) Bipolar 1 disorder (2) S/P BKA (below knee amputation) (3) Peritracheal mass Plan: for mediastinoscopy tuesday (4) History of Hodgkin's lymphoma Radha Goel Apr 29, 2017 16:11
[2017-04-29] MEDS: ONDANSETRON HCL 4 MG/2 ML VIAL IVP PRN (18:34)
[2017-04-29 20:21] LABS: AUTOMATED NEUTROPHIL # 10.7 TH/MM3 (1.8-7.7); BASOPHIL % 0.3 % (0.0-2.0); EOSINOPHIL # 0.1 TH/MM3 (0-0.4); EOSINOPHIL % 0.8 % (0.0-4.0); HEMATOCRIT 43.6 % (39.0-51.0); HEMO FLAGS DIFF FINAL; LYMPH % 14.7 % (9.0-44.0); MEAN CELL VOLUME 88.5 FL (80.0-100.0); MEAN CORPUSCULAR HEMOGLOBIN 29.6 PG (27.0-34.0); MEAN CORPUSCULAR HGB CONC 33.5 % (32.0-36.0); MONO % 7.3 % (0.0-8.0); NEUT % 76.9 % (16.0-70.0); PLATELET COUNT 306 TH/MM3 (150-450); RED BLOOD COUNT 4.93 MIL/MM3 (4.50-5.90); RED CELL DISTRIBUTION WIDTH 13.9 % (11.6-17.2); WHITE BLOOD COUNT 13.9 TH/MM3 (4.0-11.0)
[2017-04-30] VITALS (8 sets, daily range): BP systolic 118–135; BP diastolic 69–81; PULSE 69–101; RESP 16–18; TEMP 96.1–98.9; O2SAT 93–96
[2017-04-30] MEDS: ONDANSETRON HCL 4 MG/2 ML VIAL IVP PRN (00:36)
[2017-04-30] MEDS: HYDROmorphone HCL PF 1 MG/ML VIAL IV PUSH PRN ×6 (00:36→23:37)
--- NOTE | 2017-04-30 08:01 | HHI.PR ---
Subjective Remarks Follow up for paratracheal mass in patient with a history of Hodgkin's lymphoma. Patient is doing well. No acute concerns. His urine has been somewhat dark in color. Objective Vitals Vital Signs Date Time Temp Pulse Resp B/P Pulse Ox O2 Delivery O2 Flow Rate FiO2 04/30/17 04:14 16 04/30/17 04:00 98.9 79 18 124/75 94 04/30/17 00:00 97.5 101 18 120/76 93 04/29/17 20:00 99.1 99 18 114/74 95 04/29/17 19:43 96 Nasal Cannula 2.00 04/29/17 16:00 99.0 81 18 124/72 95 04/29/17 12:00 98.7 82 16 127/76 97 04/29/17 11:05 78 16 123/69 95 04/29/17 10:35 80 16 111/75 95 04/29/17 10:05 83 16 115/73 95 04/29/17 09:50 98.6 89 16 133/72 93 04/29/17 09:27 97 Nasal Cannula 2.00 I/O 04/29/17 04/29/17 04/29/17 04/30/17 04/30/17 04/30/17 07:00 15:00 23:00 07:00 15:00 23:00 Intake Total 480 ml 480 ml Output Total 600 ml 850 ml 450 ml Balance -600 ml -370 ml 30 ml Intake Oral 480 ml 480 ml Output Urine Total 600 ml 850 ml 450 ml # Bowel Movements 0 Result Diagram: 04/29/17 1936 04/28/17 0651 Imaging Last Impressions Bone Biopsy CT 04/29/17 0000 Signed Impressions: Service Date/Time: Saturday, April 29, 2017 09:08 - CONCLUSION: 1. Uncomplicated CT guided bone marrow aspirate. 2. Uncomplicated CT guided bone marrow biopsy. Kevin Felix MD FACR Abdomen/Pelvis CT 04/28/17 0000 Signed Impressions: Service Date/Time: April 19:17 - CONCLUSION: 1. Interval development of a tiny right effusion and bibasilar atelectasis. Otherwise, normal exam. Charbel Amaro Jr., MD Chest X-Ray 04/27/17 1129 Signed Impressions: Service Date/Time: Thursday, April 27, 2017 11:55 - CONCLUSION: Possible right paratracheal mass. Recommend chest CT with contrast for further evaluation if this is not a known finding. Nico Hendrickson MD CT Angiography 04/27/17 0000 Signed Impressions: Service Date/Time: Thursday, April 27, 2017 13:58 - CONCLUSION: 1. 4.2 x 5.5 cm right paratracheal mass lesion which displaces the trachea leftward. This appears isolated. 2. Bibasilar atelectatic changes with no confluent infiltrate or pulmonary embolus. Aki Edwards MD Objective Remarks GENERAL: Alert, oriented 3, NAD. SKIN: Warm and dry. HEAD: Normocephalic. EYES: No scleral icterus. No injection or drainage. NECK: Supple, trachea midline. No JVD or lymphadenopathy. CARDIOVASCULAR: Regular rate and rhythm without murmurs, gallops, or rubs. RESPIRATORY: Breath sounds equal bilaterally. No accessory muscle use. GASTROINTESTINAL: Abdomen soft, non-tender, nondistended. MUSCULOSKELETAL: No cyanosis, or edema. Bilateral lower extremity BKA BACK: Nontender without obvious deformity. No CVA tenderness. Procedures Bone marrow biopsy attempted at bedside 04/28/2017 by hematology oncology. A/P Problem List: (1) Peritracheal mass ICD Code: R22.2 Status: Acute (2) History of Hodgkin's lymphoma ICD Code: Z85.71 Status: Acute Assessment and Plan Mr. Arguelles is a 41-year-old male with a history of Hodgkin's lymphoma who presents to the emergency department on 04/27/2017 due to difficulty breathing as well as mid chest pain from throat to epigastric area that started around 7: 30 AM this morning. Patient denies any B symptoms (fever, night sweats, weight loss). - Right-sided paratracheal mass 4.2 x 5.5 cm - History of Hodgkin's lymphoma - Chest x-ray and CT angiogram reviewed by myself on 04/27/2017. Imaging studies show right paratracheal mass pushing against the trachea to the left. - Currently patient is oxygenating well and maintaining airway. - Medical oncology as well as cardiothoracic surgery following - Tylenol, Percocet, IV Dilaudid for pain as needed. - CT abdomen pelvis shows no acute findings. Invasive radiology performed Bone marrow Bx done on 04/29/2017. - Probable Mediastinoscopy with biopsy on Tuesday05/02/2017. - Will order UA and start patient on some gentle hydration and monitor urine color/output. - Alcohol abuse - Tobacco abuse - Marijuana abuse - Counseled patient regarding substance abuse. Encouraged patient to consider quitting. Full code. ambulation. Reilly Gomez DO Apr 30, 2017 8:01 am
[2017-04-30] MEDS: LITHIUM CARBONATE 300 MG TAB PO SCH ×2 (08:04→21:00)
[2017-04-30] MEDS: DOCUSATE SODIUM 50 MG/SENNA 8.6 MG TAB PO SCH ×2 (08:04→21:00)
[2017-04-30] MEDS: SODIUM CHLORIDE 0.9% FLUSH 10 ML FLUSH IV FLUSH SCH ×2 (08:06→21:00)
[2017-04-30] MEDS: PANTOPRAZOLE SODIUM 40 MG VIAL IV PUSH SCH (08:06)
[2017-04-30 09:34] LABS: AUTOMATED NEUTROPHIL # 8.4 TH/MM3 (1.8-7.7); BASOPHIL % 0.3 % (0.0-2.0); EOSINOPHIL # 0.2 TH/MM3 (0-0.4); EOSINOPHIL % 1.8 % (0.0-4.0); HEMATOCRIT 42.1 % (39.0-51.0); HEMO FLAGS DIFF FINAL; LYMPH % 15.4 % (9.0-44.0); LYMPHOCYTE # 1.7 TH/MM3 (1.0-4.8); MEAN CELL VOLUME 87.5 FL (80.0-100.0); MEAN CORPUSCULAR HEMOGLOBIN 29.9 PG (27.0-34.0); MEAN CORPUSCULAR HGB CONC 34.1 % (32.0-36.0); MONO % 7.4 % (0.0-8.0); NEUT % 75.1 % (16.0-70.0); PLATELET COUNT 306 TH/MM3 (150-450); RED BLOOD COUNT 4.81 MIL/MM3 (4.50-5.90); RED CELL DISTRIBUTION WIDTH 13.8 % (11.6-17.2); WHITE BLOOD COUNT 11.2 TH/MM3 (4.0-11.0)
[2017-04-30] MEDS: SODIUM CHLOR 0.9% 1000 ML INJ 1,000 ML IV SCH ×2 (12:00→23:41)
[2017-04-30] MEDS: oxyCODONE/ACETAMINOPHEN 7.5 MG/325 MG TAB PO PRN (13:33)
[2017-04-30 15:39] LABS: BLOOD, URINE NEG (NEG); GLUCOSE,URINE NEG (NEG); KETONE, URINE 40 mg/dL (NEG); MUCUS URINE FEW /lpf (OCC); NITRITE,URINE NEG (NEG); URINE COLOR YELLOW (YELLW/STRAW)
[2017-04-30 15:45] LABS: COMMENT (UR) CULT NOT INDICATED; CULTURE IF INDICATED CULT NOT INDICATED
[2017-05-01] VITALS (8 sets, daily range): BP systolic 121–139; BP diastolic 66–87; PULSE 67–82; RESP 16–19; TEMP 96.8–99.2; O2SAT 93–99
[2017-05-01] MEDS: HYDROmorphone HCL PF 1 MG/ML VIAL IV PUSH PRN ×6 (02:33→22:53)
[2017-05-01] MEDS: PANTOPRAZOLE SODIUM 40 MG VIAL IV PUSH SCH (07:31)
[2017-05-01] MEDS: SODIUM CHLORIDE 0.9% FLUSH 10 ML FLUSH IV FLUSH SCH ×2 (07:31→21:00)
[2017-05-01] MEDS: LITHIUM CARBONATE 300 MG TAB PO SCH ×2 (07:31→19:43)
[2017-05-01] MEDS: SODIUM CHLOR 0.9% 1000 ML INJ 1,000 ML IV SCH ×3 (07:31→22:55)
[2017-05-01] MEDS: DOCUSATE SODIUM 50 MG/SENNA 8.6 MG TAB PO SCH ×2 (07:31→19:43)
[2017-05-01 08:29] LABS: INTERNATIONAL NORMALIZED RATIO 0.9 RATIO; PROTHROMBIN TIME - PATIENT 9.9 SEC (9.8-11.6)
[2017-05-01 08:31] LABS: AUTOMATED NEUTROPHIL # 5.5 TH/MM3 (1.8-7.7); BASOPHIL % 0.4 % (0.0-2.0); EOSINOPHIL # 0.4 TH/MM3 (0-0.4); EOSINOPHIL % 4.3 % (0.0-4.0); HEMATOCRIT 39.2 % (39.0-51.0); HEMO FLAGS DIFF FINAL; LYMPH % 22.3 % (9.0-44.0); LYMPHOCYTE # 1.9 TH/MM3 (1.0-4.8); MEAN CELL VOLUME 88.4 FL (80.0-100.0); MEAN CORPUSCULAR HEMOGLOBIN 29.5 PG (27.0-34.0); MEAN CORPUSCULAR HGB CONC 33.4 % (32.0-36.0); MONO % 9.4 % (0.0-8.0); NEUT % 63.6 % (16.0-70.0); PLATELET COUNT 295 TH/MM3 (150-450); RED BLOOD COUNT 4.44 MIL/MM3 (4.50-5.90); RED CELL DISTRIBUTION WIDTH 13.2 % (11.6-17.2); WHITE BLOOD COUNT 8.6 TH/MM3 (4.0-11.0)
--- NOTE | 2017-05-01 14:01 | HHI.PR ---
Subjective Remarks Follow up for paratracheal mass in patient with a history of Hodgkin's lymphoma. Patient is currently doing well. Mild chest discomfort No shortness of breath, fever or chills. Patient is tolerating diet well. Objective Vitals Vital Signs Date Time Temp Pulse Resp B/P Pulse Ox O2 Delivery O2 Flow Rate FiO2 05/01/17 12:00 98.6 71 16 121/71 93 05/01/17 10:48 96 05/01/17 08:00 97.2 78 18 139/76 99 05/01/17 04:00 98.1 81 19 129/66 95 05/01/17 00:00 99.2 82 18 123/70 93 04/30/17 20:18 81 04/30/17 19:30 96.1 84 18 121/77 94 04/30/17 16:00 97.0 77 16 135/69 94 I/O 04/30/17 04/30/17 04/30/17 05/01/17 05/01/17 05/01/17 06:59 14:59 22:59 06:59 14:59 22:59 Intake Total 480 ml 1687 ml 1466 ml Output Total 450 ml 250 ml 750 ml 275 ml 400 ml Balance 30 ml -250 ml 937 ml 1191 ml -400 ml Intake Oral 480 ml 1200 ml 240 ml IV Total 487 ml 1226 ml Output Urine Total 450 ml 250 ml 750 ml 275 ml 400 ml # Voids 4 # Bowel Movements 0 1 Result Diagram: 05/01/17 0743 04/28/17 0651 Imaging Last Impressions Bone Biopsy CT 04/29/17 0000 Signed Impressions: Service Date/Time: Saturday, April 29, 2017 09:08 - CONCLUSION: 1. Uncomplicated CT guided bone marrow aspirate. 2. Uncomplicated CT guided bone marrow biopsy. Kevin Felix MD FACR Abdomen/Pelvis CT 04/28/17 0000 Signed Impressions: Service Date/Time: April 19:17 - CONCLUSION: 1. Interval development of a tiny right effusion and bibasilar atelectasis. Otherwise, normal exam. Charbel Amaro Jr., MD Chest X-Ray 04/27/17 1129 Signed Impressions: Service Date/Time: Thursday, April 27, 2017 11:55 - CONCLUSION: Possible right paratracheal mass. Recommend chest CT with contrast for further evaluation if this is not a known finding. Nico Hendrickson MD CT Angiography 04/27/17 0000 Signed Impressions: Service Date/Time: Thursday, April 27, 2017 13:58 - CONCLUSION: 1. 4.2 x 5.5 cm right paratracheal mass lesion which displaces the trachea leftward. This appears isolated. 2. Bibasilar atelectatic changes with no confluent infiltrate or pulmonary embolus. Aki Edwards MD Objective Remarks GENERAL: Alert, oriented 3, NAD. SKIN: Warm and dry. HEAD: Normocephalic. EYES: No scleral icterus. No injection or drainage. NECK: Supple, trachea midline. No JVD or lymphadenopathy. CARDIOVASCULAR: Regular rate and rhythm without murmurs, gallops, or rubs. RESPIRATORY: Breath sounds equal bilaterally. No accessory muscle use. GASTROINTESTINAL: Abdomen soft, non-tender, nondistended. MUSCULOSKELETAL: No cyanosis, or edema. Bilateral lower extremity BKA BACK: Nontender without obvious deformity. No CVA tenderness. Procedures Bone marrow biopsy attempted at bedside 04/28/2017 by hematology oncology. A/P Problem List: (1) Peritracheal mass ICD Code: R22.2 Status: Acute (2) History of Hodgkin's lymphoma ICD Code: Z85.71 Status: Acute Assessment and Plan Mr. Arguelles is a 41-year-old male with a history of Hodgkin's lymphoma who presents to the emergency department on 04/27/2017 due to difficulty breathing as well as mid chest pain from throat to epigastric area that started around 7: 30 AM this morning. Patient denies any B symptoms (fever, night sweats, weight loss). - Right-sided paratracheal mass 4.2 x 5.5 cm - History of Hodgkin's lymphoma - Chest x-ray and CT angiogram reviewed by myself on 04/27/2017. Imaging studies show right paratracheal mass pushing against the trachea to the left. - Currently patient is oxygenating well and maintaining airway. - Medical oncology as well as cardiothoracic surgery following - Tylenol, Percocet, IV Dilaudid for pain as needed. - CT abdomen pelvis shows no acute findings. Invasive radiology performed Bone marrow Bx done on 04/29/2017. - Probable Mediastinoscopy with biopsy on Tuesday05/02/2017. - Alcohol abuse - Tobacco abuse - Marijuana abuse - Counseled patient regarding substance abuse. Encouraged patient to consider quitting. Full code. ambulation. Probable discharge after paratracheal mass biopsy when okay with cardiothoracic surgery, probably on 05/02/2017 05/03/2017. Reilly Gomez DO May 01, 2017 2:01 pm
[2017-05-02] VITALS (9 sets, daily range): BP systolic 117–145; BP diastolic 67–83; PULSE 59–81; RESP 16–20; TEMP 97.1–98.9; O2SAT 92–98
[2017-05-02] MEDS: HYDROmorphone HCL PF 1 MG/ML VIAL IV PUSH PRN ×7 (02:52→23:55)
[2017-05-02] MEDS ORDERED: SUGAMMADEX SODIUM 200 MG/2 ML VIAL IV PUSH ONE ×2 (06:37)
[2017-05-02 06:52] LABS: BASOPHIL # 0.1 TH/MM3 (0-0.2); BASOPHIL % 0.7 % (0.0-2.0); EOSINOPHIL # 0.4 TH/MM3 (0-0.4); EOSINOPHIL % 4.9 % (0.0-4.0); HEMATOCRIT 35.1 % (39.0-51.0); HEMO FLAGS DIFF FINAL; LYMPH % 30.5 % (9.0-44.0); LYMPHOCYTE # 2.3 TH/MM3 (1.0-4.8); MEAN CELL VOLUME 87.8 FL (80.0-100.0); MEAN CORPUSCULAR HEMOGLOBIN 30.3 PG (27.0-34.0); MEAN CORPUSCULAR HGB CONC 34.5 % (32.0-36.0); MONO % 9.6 % (0.0-8.0); NEUT % 54.3 % (16.0-70.0); PLATELET COUNT 317 TH/MM3 (150-450); RED CELL DISTRIBUTION WIDTH 13.1 % (11.6-17.2); WHITE BLOOD COUNT 7.4 TH/MM3 (4.0-11.0)
[2017-05-02] MEDS ORDERED: fentaNYL CITRATE 250 MCG/5 ML AMP ONE ×2 (06:52→09:49)
[2017-05-02] MEDS ORDERED: BUPIVACAINE/EPINEPHRINE 0.25% 50 ML VIAL ONE (07:02)
[2017-05-02] MEDS ORDERED: MIDAZOLAM HCL 2 MG/2 ML VIAL ONE (07:42)
[2017-05-02] MEDS ORDERED: FAMOTIDINE 20 MG/2 ML VIAL ONE (07:44)
[2017-05-02] MEDS: DOCUSATE SODIUM 50 MG/SENNA 8.6 MG TAB PO SCH ×2 (09:00→20:52)
[2017-05-02] MEDS: SODIUM CHLORIDE 0.9% FLUSH 10 ML FLUSH IV FLUSH SCH ×2 (09:00→20:53)
[2017-05-02] MEDS: LITHIUM CARBONATE 300 MG TAB PO SCH ×2 (09:00→20:52)
[2017-05-02] MEDS ORDERED: ACETAMINOPHEN/HYDROcodone 325 MG/5 MG TAB PO PRN (09:30)
[2017-05-02] MEDS ORDERED: DO NOT ADM ANY ANTICOAGULANT DRUGS PRN (09:40)
[2017-05-02] MEDS ORDERED: MORPHINE SULFATE 4 MG/ML INJ ONE (09:48)
[2017-05-02] MEDS ORDERED: *morphine SULFATE 8 MG/ML PERIprocedure ONLY ONE ×2 (09:59→10:16)
--- NOTE | 2017-05-02 09:59 | PD.OP ---
cc: Veronica Herzog MD; Pati Fernandez MD Operative Report Date of Surgery: May 02, 2017 Preoperative Diagnosis: Postoperative Diagnosis: Procedure: Cervical mediastinoscopy with biopsy of right paratracheal mass. . Surgeon: Pati Fernandez Sales Operations Coordinator(s): Taco Dobson Operation and Findings: PREOPERATIVE DIAGNOSIS 1. Right Paratracheal Mass 2. H/O Lymphoma POSTOPERATIVE DIAGNOSIS Same SURGICAL PROCEDURE Cervical mediastinoscopy with biopsy of right paratracheal mass. SURGEON Pati Fernnadez MD [place] MACHINIST Destiny Dobson [facility] AN[facility]HES[facility] General Endotracheal SKIVER HEEL TAP Ayanna Martinez, THALIA Mahmood MD PREPARATION ChloraPrep. NEEDLE, SPONGE, AND INSTRUMENT COUNTS Correct. DRAINS None. COMPLICATIONS None. INDICATIONS The patient is a 41 yo with a known h/o Lymphoma treated 20 yrs ago and now found to have a right paratracheal mass of unknown etiology. The patient is being brought to the operating room for biopsy procedure. DESCRIPTION OF PROCEDURE The patient was brought to the operating room and placed supine on the OR table. Following the induction of adequate general endotracheal anesthesia and placement of appropriate monitoring devices, the neck, chest, and surrounding areas were prepped and draped in the standard sterile fashion. Through an approximately 2.5 cm cervical collar incision, the platysma was divided horizontally, and the strap muscles were retracted laterally. The pretracheal membrane was identified and divided. Thereafter, dissection was continued digitally, and subsequently using the cervical mediastinoscope. A right large paratracheal mass was identified and biopsied and sent for histologic analysis. Cultures were also obtained. The mass was fibrotic with a necrotic and cystic center. Strict hemostasis was assured. No additional pathology was identified and the closure was undertaken. The incision was infiltrated with 0.5% Marcaine. The strap muscles were reapproximated in the midline using interrupted 2-0 Vicryl and the platysma and subcutaneous fat were approximated with 3-0 Vicryl and the skin reapproximated with 4-0 Vicryl in subcuticular fashion. Steri-Strips and a sterile dressing were applied. The patient was awakened from general anesthesia, transferred to the recovery room in stable condition. Pati Fernandez MD May 02, 2017 09:59
--- NOTE | 2017-05-02 10:18 | RADRPT ---
EXAM DATE/TIME: 05/02/2017 09:46 [facility] COMPARISON: CT PULMONARY ANGIOGRAM, April 27, 2017, 13:58. CHEST SINGLE AP, April 27, 2017, 11:55. INDICATIONS : S/p mediastinoscopy MEDICAL HISTORY : Myocardial infarction. Cardiovascular disease. Hodgkin"s lymphoma SURGICAL HISTORY : None. ENCOUNTER: Initial ACUITY: 1 day PAIN SCORE: 10/10 LOCATION: Bilateral chest FINDINGS: Low lung volumes with any appreciable opacity is in the lung bases consistent with atelectasis. [place]em onstration of right paratracheal mass. Cardiomediastinal contours are otherwise stable. Remainder of the exam is unchanged. CONCLUSION: 1. Low lung volumes with bibasilar atelectasis. 2. Redemonstration of right paratracheal mass. 3. No significant pneumomediastinum or pneumothorax. Vj Montero MD on May 02, 2017 at 10:11 Board Certified Radiologist. This report was verified electronically.
[2017-05-02] MEDS: PANTOPRAZOLE SODIUM 40 MG VIAL IV PUSH SCH (11:22)
[2017-05-02] MEDS: ONDANSETRON HCL 4 MG/2 ML VIAL IVP PRN (11:23)
[2017-05-02] MEDS ORDERED: NORMOSOL R INJ 1,000 ML IV ONE (12:00)
[2017-05-02] MEDS ORDERED: PROPOFOL 200 MG/20 ML AMP IV ONE (12:00)
[2017-05-02] MEDS ORDERED: ONDANSETRON HCL 4 MG/2 ML VIAL IV PUSH ONE (12:00)
--- NOTE | 2017-05-02 13:12 | HHI.PR ---
Subjective Remarks Follow up for paratracheal mass in patient with a history of Hodgkin's lymphoma. Mr. Arguelles was seen after biopsy performed by CTS. Patient is doing well at this point. No fever, chills. Objective Vitals Vital Signs Date Time Temp Pulse Resp B/P Pulse Ox O2 Delivery O2 Flow Rate FiO2 05/02/17 12:54 97.1 67 20 135/79 95 05/02/17 10:46 97.3 65 20 140/83 92 05/02/17 10:30 98.1 67 16 130/71 95 Room Air 05/02/17 10:21 15 05/02/17 10:15 68 16 133/82 94 Room Air 05/02/17 10:04 15 05/02/17 10:00 69 16 149/90 93 Room Air 05/02/17 09:45 75 16 147/84 100 Simple Mask 7 05/02/17 09:40 97.8 85 20 138/79 98 Simple Mask 7 05/02/17 09:36 93 21 05/02/17 04:00 98.5 62 18 120/67 96 05/02/17 00:00 97.3 68 17 129/73 97 05/01/17 20:10 74 05/01/17 20:00 98.7 67 18 127/75 95 05/01/17 16:00 96.8 76 18 133/87 97 I/O 05/01/17 05/01/17 05/01/17 05/02/17 05/02/17 05/02/17 07:00 15:00 23:00 07:00 15:00 23:00 Intake Total 1466 ml 840 ml 1820 ml 1186 ml 700 ml Output Total 275 ml 1300 ml 725 ml 10 ml Balance 1191 ml -460 ml 1820 ml 461 ml 690 ml Intake Oral 240 ml 840 ml 720 ml 0 ml IV Total 1226 ml 1100 ml 1186 ml 100 ml Other 600 ml Output Urine Total 275 ml 1300 ml 725 ml Estimated Blood Loss 10 ml # Voids 4 0 # Bowel Movements 2 Result Diagram: 05/02/17 0554 04/28/17 0651 Imaging Last Impressions Chest X-Ray 05/02/17 0000 Signed Impressions: Service Date/Time: Tuesday, May 02, 2017 09:46 - CONCLUSION: 1. Low lung volumes with bibasilar atelectasis. 2. Redemonstration of right paratracheal mass. 3. No significant pneumomediastinum or pneumothorax. jV Montero MD Bone Biopsy CT 04/29/17 0000 Signed Impressions: Service Date/Time: Saturday, April 29, 2017 09:08 - CONCLUSION: 1. Uncomplicated CT guided bone marrow aspirate. 2. Uncomplicated CT guided bone marrow biopsy. Kevin Felix MD FACR Abdomen/Pelvis CT 04/28/17 0000 Signed Impressions: Service Date/Time: April 19:17 - CONCLUSION: 1. Interval development of a tiny right effusion and bibasilar atelectasis. Otherwise, normal exam. Charbel Amaro Jr., MD CT Angiography 04/27/17 0000 Signed Impressions: Service Date/Time: Thursday, April 27, 2017 13:58 - CONCLUSION: 1. 4.2 x 5.5 cm right paratracheal mass lesion which displaces the trachea leftward. This appears isolated. 2. Bibasilar atelectatic changes with no confluent infiltrate or pulmonary embolus. Aki Edwards MD Objective Remarks GENERAL: Alert, oriented 3, NAD. SKIN: Warm and dry. HEAD: Normocephalic. EYES: No scleral icterus. No injection or drainage. NECK: Supple, trachea midline. No JVD or lymphadenopathy. CARDIOVASCULAR: Regular rate and rhythm without murmurs, gallops, or rubs. RESPIRATORY: Breath sounds equal bilaterally. No accessory muscle use. GASTROINTESTINAL: Abdomen soft, non-tender, nondistended. MUSCULOSKELETAL: No cyanosis, or edema. Bilateral lower extremity BKA BACK: Nontender without obvious deformity. No CVA tenderness. Procedures Bone marrow biopsy attempted at bedside 04/28/2017 by hematology oncology. A/P Problem List: (1) Peritracheal mass ICD Code: R22.2 Status: Acute (2) History of Hodgkin's lymphoma ICD Code: Z85.71 Status: Acute Assessment and Plan Mr. Arguelles is a 41-year-old male with a history of Hodgkin's lymphoma who presents to the emergency department on 04/27/2017 due to difficulty breathing as well as mid chest pain from throat to epigastric area that started around 7: 30 AM this morning. Patient denies any B symptoms (fever, night sweats, weight loss). - Right-sided paratracheal mass 4.2 x 5.5 cm - History of Hodgkin's lymphoma - Chest x-ray and CT angiogram reviewed by myself on 04/27/2017. Imaging studies show right paratracheal mass pushing against the trachea to the left. - Currently patient is oxygenating well and maintaining airway. - Medical oncology as well as cardiothoracic surgery following - Tylenol, Percocet, IV Dilaudid for pain as needed. - CT abdomen pelvis shows no acute findings. Invasive radiology performed Bone marrow Bx done on 04/29/2017. - Patient underwent surgical biopsy on 05/02/2017. Discussed with Dr. Fernandez who is okay for patient to be discharged on 05/03/2017. - Alcohol abuse - Tobacco abuse - Marijuana abuse - Counseled patient regarding substance abuse. Encouraged patient to consider quitting. Full code. ambulation. Discharge plan: Can be discharged when okay with Oncology. Reilly Gomez DO May 02, 2017 1:12 pm
[2017-05-02] MEDS ORDERED: PHENOL 1.4% SOLN 180 ML BTL OROPHARYNG PRN (14:00)
[2017-05-02] MEDS: SODIUM CHLOR 0.9% 1000 ML INJ 1,000 ML IV SCH ×2 (14:00→23:57)
--- NOTE | 2017-05-02 17:33 | PD.ONC.PN ---
Subjective Subjective Remarks Denies prior XRT to chest. Tolerated procedure, eager to go home. Objective Data Date Time Temp Pulse Resp B/P Pulse Ox O2 Delivery O2 Flow Rate FiO2 05/02/17 16:00 98.2 61 18 117/67 96 05/02/17 12:54 97.1 67 20 135/79 95 05/02/17 10:46 97.3 65 20 140/83 92 05/02/17 10:30 98.1 67 16 130/71 95 Room Air 05/02/17 10:21 15 05/02/17 10:15 68 16 133/82 94 Room Air 05/02/17 10:04 15 05/02/17 10:00 69 16 149/90 93 Room Air 05/02/17 09:45 75 16 147/84 100 Simple Mask 7 05/02/17 09:40 97.8 85 20 138/79 98 Simple Mask 7 05/02/17 09:36 93 21 05/02/17 07:15 59 05/02/17 04:00 98.5 62 18 120/67 96 05/02/17 00:00 97.3 68 17 129/73 97 05/01/17 20:10 74 05/01/17 20:00 98.7 67 18 127/75 95 05/02/17 05/02/17 05/02/17 06:59 14:59 22:59 Intake Total 1186 ml 700 ml 120 ml Output Total 725 ml 10 ml 600 ml Balance 461 ml 690 ml -480 ml Result Diagram: 05/02/17 0554 04/28/17 0651 Laboratory Results Laboratory Tests Test 05/02/17 05:54 White Blood Count 7.4 TH/MM3 Red Blood Count 4.00 MIL/MM3 Hemoglobin 12.1 GM/DL Hematocrit 35.1 % Mean Corpuscular Volume 87.8 FL Mean Corpuscular Hemoglobin 30.3 PG Mean Corpuscular Hemoglobin 34.5 % Concent Red Cell Distribution Width 13.1 % Platelet Count 317 TH/MM3 Mean Platelet Volume 8.2 FL Neutrophils (%) (Auto) 54.3 % Lymphocytes (%) (Auto) 30.5 % Monocytes (%) (Auto) 9.6 % Eosinophils (%) (Auto) 4.9 % Basophils (%) (Auto) 0.7 % Neutrophils # (Auto) 4.0 TH/MM3 Lymphocytes # (Auto) 2.3 TH/MM3 Monocytes # (Auto) 0.7 TH/MM3 Eosinophils # (Auto) 0.4 TH/MM3 Basophils # (Auto) 0.1 TH/MM3 CBC Comment DIFF FINAL Differential Comment Culture Results Microbiology Date/Time Procedure Status Source Growth 05/02/17 08:50 Gram Stain Received Wound Other Pending 05/02/17 08:50 Wound Culture Received Wound Other Pending 05/02/17 08:50 Acid Fast Stain Received Wound Other Pending 05/02/17 08:50 Mycobacterial Culture Received Wound Other Pending 05/02/17 08:50 Fungal Smear Received Wound Other Pending 05/02/17 08:50 Fungal Culture Received Wound Other Pending Imaging Studies Last 24 hours Impressions Chest X-Ray 05/02/17 0000 Signed Impressions: Service Date/Time: Tuesday, May 02, 2017 09:46 - CONCLUSION: 1. Low lung volumes with bibasilar atelectasis. 2. Redemonstration of right paratracheal mass. 3. No significant pneumomediastinum or pneumothorax. Vj Montero MD Administered Medications Medications (Trade) Dose Ordered Sig/Dorothy Route PRN Reason Start Time Stop Time Status Last Admin Dose Admin Ondansetron HCl (Zofran Inj) 4 mg Q6H PRN IVP NAUSEA OR VOMITING 04/27/17 16:00 05/02/17 11:23 Heparin Sodium (Porcine) (Heparin Inj) 5,000 units Q12H SQ 04/27/17 17:00 Hold 04/27/17 18:24 Senna/Docusate Sodium ([place]-Colace) 1 tab BID PO 04/27/17 21:00 05/01/17 19:43 Magnesium Hydroxide (Milk Of Magnesia Liq) 30 ml Q12H PRN PO MILD - MODERATE CONSTIPATION 04/27/17 16:00 04/30/17 11:07 [place] Carbonate (Lithotabs) 300 mg Q12HR PO 04/28/17 09:00 05/01/17 19:43 Hydromorphone HCl (Dilaudid Pf Inj) 0.5 mg Q3H PRN IV PUSH pain >5 if pt cant swallow 04/28/17 03:30 05/02/17 14:22 Sodium Chloride (NS Flush) 2 ml BID IV FLUSH 04/28/17 21:00 04/30/17 08:06 Pantoprazole Sodium (Protonix Inj) 40 mg Q24H IV PUSH 04/29/17 09:00 05/02/17 11:22 Metoclopramide HCl 5 mg 5 mg Q8H PRN IV PUSH nausea not relieved by zofran 04/28/17 22:00 04/29/17 00:46 Sodium Chloride (NS 1000 ml Inj) 1,000 ml @ 100 mls/hr Q10H IV 04/30/17 12:00 05/01/17 22:55 Objective Remarks GENERAL: Well-nourished, well-developed patient. SKIN: Warm and dry. Mediastinoscopy scar. HEAD: Normocephalic. EYES: No scleral icterus. No injection or drainage. NECK: Supple, trachea midline. No JVD or lymphadenopathy. LYMPHATIC: No adenopathy. CARDIOVASCULAR: Regular rate and rhythm without murmurs. RESPIRATORY: Breath sounds equal bilaterally. No accessory muscle use. GASTROINTESTINAL: Abdomen soft, non-tender, nondistended. EXTREMITIES: No cyanosis, or edema. MUSCULOSKELETAL: Adequate muscle tone. R below knee amputation. NEUROLOGICAL: No obvious focal deficit. Awake, alert, and oriented x3. Assessment/Plan Problem List: (1) History of lymphoma Status: Acute Plan: 05/02/17. Discussed with Dr. Fernandez, preliminary pathology fibrotic tissue. Await final path and bone marrow biopsy results. CT/PET on out pt maybe helpful. OK for DC from heme/onc stand point. FU as out pt. --history of Hodgkin's disease diagnosed at the age of 21. He had constitutional symptoms of fevers, sweats and weight loss. He was treated at [facility]. He has no records of his lymphoma. He reports taking chemotherapy with no radiation, does not know the chemotherapy that he was administered at the age of 21. --presented to the hospital with chest pains. He apparently woke up with an "elephant on his chest". He tried to get his inhaler from the car and fell. He was brought in by ambulance. Imaging study including a CT angiogram showed a 4.2 x 5.5, mediastinal mass lesion in the right paratracheal distribution. It displaces the trachea leftward. No pulmonary embolism. He described sweats. he has had sweats for many years. He denies any overt fevers. He is not aware of weight loss. --CT ab/pelvis: no mets Assessment 41y/o male with a history of Hodgkin's lymphoma admitted with 4.2 x 5.5-cm right paratracheal mass. h/o Hodgkin's disease, unknown stage. Bipolar disorder. Asthma. Plan 1. OK for DC 2. FU [facility] in 1 week to review pathology 3. Await pathology Veronica Herzog MD May 02, 2017 17:33
[2017-05-03] VITALS: BP 142/86; PULSE 75; RESP 16; TEMP 98.9; O2SAT 98
[2017-05-03] MEDS: ACETAMINOPHEN/HYDROcodone 325 MG/5 MG TAB PO PRN ×4 (02:44→14:05)
[2017-05-03 04:00] VITALS: BP 130/69; PULSE 73; RESP 16; TEMP 99.4; O2SAT 96
[2017-05-03 08:21] VITALS: BP 132/78; PULSE 70; RESP 20; TEMP 97.3; O2SAT 93
[2017-05-03] MEDS: PANTOPRAZOLE SODIUM 40 MG VIAL IV PUSH SCH (08:21)
[2017-05-03] MEDS: DOCUSATE SODIUM 50 MG/SENNA 8.6 MG TAB PO SCH (08:21)
[2017-05-03] MEDS: LITHIUM CARBONATE 300 MG TAB PO SCH (08:21)
[2017-05-03] MEDS: SODIUM CHLOR 0.9% 1000 ML INJ 1,000 ML IV SCH (08:23)
[2017-05-03] MEDS: SODIUM CHLORIDE 0.9% FLUSH 10 ML FLUSH IV FLUSH SCH (08:23)
[2017-05-03 08:37] VITALS: PULSE 86
[2017-05-03] MEDS ORDERED: HYDR-3366 PO (10:57)
--- NOTE | 2017-05-03 12:10 | HHI.DS ---
Discharge Summary Admission Date Apr 28, 2017 at 10:19 am Discharge Date: May 03, 2017 Admitting Diagnosis Chest pain, Lung mass (1) Peritracheal mass ICD Code: R22.2 (2) History of Hodgkin's lymphoma ICD Code: Z85.71 Procedures Bone marrow biopsy attempted at bedside 04/28/2017 by hematology oncology. Brief History - From Admission Mr. Arguelles is a pleasant 41-year-old male with a history of Hodgkin's lymphoma who presented to the emergency department due to difficulty breathing and mid chest pain from throat to epigastric area. Patient woke up this morning and went back to bed. Around 7:30 AM he started having difficulty breathing. He also had pain from his upper throat to the epigastric area. He had nausea vomiting but no dysphagia. No cough, fever or chills. Denies any changes in bowel or bladder habits. He particularly denies any fever, night sweats, weight loss. In the ED, chest x-ray showed a paratracheal mass and subsequently was confirmed with a CT angiogram study which showed a 4.2 x 5.57 m right paratracheal mass lesion which is displacing the trachea leftward. No pulmonary embolism. CBC/BMP: 05/02/17 0554 Significant Findings Laboratory Tests Test 04/30/17 05/01/17 05/02/17 13:00 07:43 05:54 Urine Protein 30 mg/dL (NEG-TRACE) Urine Ketones 40 mg/dL (NEG) Urine Urobilinogen 4.0 MG/DL (LESS THAN 2.0) Urine RBC 4 /hpf (0-3) Urine Mucus FEW /lpf (OCC) Red Blood Count 4.44 MIL/MM3 4.00 MIL/MM3 (4.50-5.90) (4.50-5.90) Monocytes (%) (Auto) 9.4 % (0.0-8.0) 9.6 % (0.0-8.0) Eosinophils (%) (Auto) 4.3 % (0.0-4.0) 4.9 % (0.0-4.0) Hemoglobin 12.1 GM/DL (13.0-17.0) Hematocrit 35.1 % (39.0-51.0) Imaging Last Impressions Chest X-Ray 05/02/17 0000 Signed Impressions: Service Date/Time: Tuesday, May 02, 2017 09:46 - CONCLUSION: 1. Low lung volumes with bibasilar atelectasis. 2. Redemonstration of right paratracheal mass. 3. No significant pneumomediastinum or pneumothorax. Vj Montero MD Bone Biopsy CT 04/29/17 0000 Signed Impressions: Service Date/Time: Saturday, April 29, 2017 09:08 - CONCLUSION: 1. Uncomplicated CT guided bone marrow aspirate. 2. Uncomplicated CT guided bone marrow biopsy. Kevin Felix MD FACR Abdomen/Pelvis CT 04/28/17 0000 Signed Impressions: Service Date/Time: April 19:17 - CONCLUSION: 1. Interval development of a tiny right effusion and bibasilar atelectasis. Otherwise, normal exam. Charbel Amaro Jr., MD CT Angiography 04/27/17 0000 Signed Impressions: Service Date/Time: Thursday, April 27, 2017 13:58 - CONCLUSION: 1. 4.2 x 5.5 cm right paratracheal mass lesion which displaces the trachea leftward. This appears isolated. 2. Bibasilar atelectatic changes with no confluent infiltrate or pulmonary embolus. Aki Edwards MD PE at Discharge GENERAL: Alert, oriented 3, NAD. SKIN: Warm and dry. HEAD: Normocephalic. EYES: No scleral icterus. No injection or drainage. NECK: Supple, trachea midline. No JVD or lymphadenopathy. CARDIOVASCULAR: Regular rate and rhythm without murmurs, gallops, or rubs. RESPIRATORY: Breath sounds equal bilaterally. No accessory muscle use. GASTROINTESTINAL: Abdomen soft, non-tender, nondistended. MUSCULOSKELETAL: No cyanosis, or edema. Bilateral lower extremity BKA BACK: Nontender without obvious deformity. No CVA tenderness. Pt update on day of discharge Patient is doing well. No acute concerns. He still has some throat pain but tolerating food/medications well. Hospital Course Mr. Arguelles is a 41-year-old male with a history of Hodgkin's lymphoma who presents to the emergency department on 04/27/2017 due to difficulty breathing as well as mid chest pain from throat to epigastric area that started around 7: 30 AM this morning. Patient denies any B symptoms (fever, night sweats, weight loss). - Right-sided paratracheal mass 4.2 x 5.5 cm - History of Hodgkin's lymphoma - Chest x-ray and CT angiogram reviewed by myself on 04/27/2017. Imaging studies show right paratracheal mass pushing against the trachea to the left. - Currently patient is oxygenating well and maintaining airway. - Medical oncology as well as cardiothoracic surgery following - Tylenol, Percocet, IV Dilaudid for pain as needed. - CT abdomen pelvis shows no acute findings. Invasive radiology performed Bone marrow Bx done on 04/29/2017. - Patient underwent surgical biopsy on 05/02/2017. Discussed with Dr. Fernandez who is okay for patient to be discharged on 05/03/2017. - Alcohol abuse - Tobacco abuse - Marijuana abuse - Counseled patient regarding substance abuse. Encouraged patient to consider quitting. Discussed with oncology - also okay with discharge plan. Patient will follow up with oncology in one week. Pt Condition on Discharge: Good Discharge Disposition: Discharge Home Discharge Time: <= 30 minutes Discharge Instructions DIET: Follow Instructions for: As Tolerated, No Restrictions Activities you can perform: Regular-No Restrictions Follow up Referrals: Oncology - 1 Week with Veronica Herzog MD Surgical - 2 Weeks with Pati Fernandez MD Changed Medications: Hydrocodone-Acetaminophen ([place]) 10-325 Mg Tab 1 TAB PO Q6HR PRN PAIN #20 Ref 0 TAB (Changed from: Q4H) Continued Medications: Gabapentin (Gabapentin) 300 Mg Cap 400 MG PO TID #90 Ref 0 CAP Lexa Carbonate (Lexa Carbonate) 300 Mg Cap 300 MG PO BID Please see psychaitrist soon to refill this medication Bipolar Days 14 Ref 0 CAP Reilly Gomez DO May 03, 2017 12:10
--- NOTE | 2017-05-03 12:31 | PD.ONC.PN ---
Subjective Subjective Remarks Afebrile overnight. Patient resting comfortably in nad. Slept well last night. Wants to go home. Objective Data Date Time Temp Pulse Resp B/P Pulse Ox O2 Delivery O2 Flow Rate FiO2 05/03/17 08:37 86 05/03/17 08:30 16 05/03/17 08:21 97.3 70 20 132/78 93 05/03/17 04:00 99.4 73 16 130/69 96 05/03/17 00:00 98.9 75 16 142/86 98 05/02/17 21:18 21 05/02/17 20:40 98.9 69 16 145/76 98 05/02/17 20:17 81 05/02/17 16:00 98.2 61 18 117/67 96 05/02/17 12:54 97.1 67 20 135/79 95 Result Diagram: 05/02/17 0554 Culture Results Microbiology Date/Time Procedure Status Source Growth 05/02/17 08:50 Gram Stain - Final Resulted Wound Other 05/02/17 08:50 Wound Culture - Preliminary Resulted Wound Other NO GROWTH IN 24 HOURS. 05/02/17 08:50 Acid Fast Stain Received Wound Other Pending 05/02/17 08:50 Mycobacterial Culture Received Wound Other Pending 05/02/17 08:50 Fungal Smear Received Wound Other Pending 05/02/17 08:50 Fungal Culture Received Wound Other Pending Administered Medications Medications (Trade) Dose Ordered Sig/Dorothy Route PRN Reason Start Time Stop Time Status Last Admin Dose Admin Ondansetron HCl (Zofran Inj) 4 mg Q6H PRN IVP NAUSEA OR VOMITING 04/27/17 16:00 05/02/17 11:23 Heparin Sodium (Porcine) (Heparin Inj) 5,000 units Q12H SQ 04/27/17 17:00 Hold 04/27/17 18:24 Senna/Docusate Sodium ([place]-Colace) 1 tab BID PO 04/27/17 21:00 05/03/17 08:21 Magnesium Hydroxide (Milk Of Magnesia Liq) 30 ml Q12H PRN PO MILD - MODERATE CONSTIPATION 04/27/17 16:00 04/30/17 11:07 [place] Carbonate (Lithotabs) 300 mg Q12HR PO 04/28/17 09:00 05/03/17 08:21 Hydromorphone HCl (Dilaudid Pf Inj) 0.5 mg Q3H PRN IV PUSH pain >5 if pt cant swallow 04/28/17 03:30 05/02/17 23:55 Sodium Chloride (NS Flush) 2 ml BID IV FLUSH 04/28/17 21:00 05/03/17 08:23 Pantoprazole Sodium (Protonix Inj) 40 mg Q24H IV PUSH 04/29/17 09:00 05/03/17 08:21 Metoclopramide HCl 5 mg 5 mg Q8H PRN IV PUSH nausea not relieved by zofran 04/28/17 22:00 04/29/17 00:46 Sodium Chloride (NS 1000 ml Inj) 1,000 ml @ 100 mls/hr Q10H IV 04/30/17 12:00 05/03/17 08:23 Acetaminophen/ Hydrocodone Bitart ([place] 5-325 Mg) 2 tab Q4H PRN PO PAIN SCALE 6 TO 10 05/02/17 09:30 05/03/17 07:29 Phenol (Chloraseptic [place]) 2 spray Q2H PRN OROPHARYNG Throat pain 05/02/17 14:00 05/02/17 18:07 Objective Remarks GENERAL: Middle aged male, sitting up in bed in [facility]. SKIN: Warm and dry. healing incision site along chest wall, no bleeding. HEAD: Normocephalic. EYES: No injection or drainage. NECK: Supple, trachea midline. CARDIOVASCULAR: Regular rate and rhythm RESPIRATORY: Breath sounds equal bilaterally. No accessory muscle use. GASTROINTESTINAL: Abdomen soft, non-tender, nondistended. EXTREMITIES: No cyanosis NEUROLOGICAL: No obvious focal deficit. Awake, alert, and oriented x3. Assessment/Plan Problem List: (1) History of lymphoma Status: Acute Plan: --history of Hodgkin's disease diagnosed at the age of 21. He had constitutional symptoms of fevers, sweats and weight loss. He was treated at [facility]. He has no records of his lymphoma. He reports taking chemotherapy with no radiation, does not know the chemotherapy that he was administered at the age of 21. --presented to the hospital with chest pains. He apparently woke up with an "elephant on his chest". He tried to get his inhaler from the car and fell. He was brought in by ambulance. Imaging study including a CT angiogram showed a 4.2 x 5.5, mediastinal mass lesion in the right paratracheal distribution. It displaces the trachea leftward. No pulmonary embolism. He described sweats. he has had sweats for many years. He denies any overt fevers. He is not aware of weight loss. --CT ab/pelvis: no mets Assessment 41y/o male with a history of Hodgkin's lymphoma admitted with 4.2 x 5.5-cm right paratracheal mass. h/o Hodgkin's disease, unknown stage. Bipolar disorder. Asthma. Plan 1. clear for discharge 2. fs faxed to new patient referrals for follow up 3. consult case liner for assistance with arranging follow up/patient assistance. Princess Martinez May 03, 2017 12:31
[2017-05-03 12:40] VITALS: BP 145/89; PULSE 74; RESP 20; TEMP 98.7; O2SAT 100
--- NOTE | 2017-05-03 13:34 | PD.CAR.PN ---
CVT Progress Note Subjective/Hospital Course: s/p ct guided bone BX today s/p mediastinoscopy initial path no evidence of Hodgkin lymphoma fibrotic tissue incision intact and well approximated Objective: Vital Signs Date Time Temp Pulse Resp B/P Pulse Ox O2 Delivery O2 Flow Rate FiO2 05/03/17 12:40 98.7 74 20 145/89 100 05/03/17 08:37 86 05/03/17 08:30 16 05/03/17 08:21 97.3 70 20 132/78 93 05/03/17 04:00 99.4 73 16 130/69 96 05/03/17 00:00 98.9 75 16 142/86 98 05/02/17 21:18 21 05/02/17 20:40 98.9 69 16 145/76 98 05/02/17 20:17 81 05/02/17 16:00 98.2 61 18 117/67 96 Result Diagram: 05/02/17 0554 (1) Bipolar 1 disorder (2) S/P BKA (below knee amputation) (3) Peritracheal mass Plan: s/p mediastinoscopy f/u Dr Fernandez in 2 weeks (4) History of Hodgkin's lymphoma Radha Goel May 03, 2017 13:34
== END 2017-05-03 14:18 | disposition home or self-care (01) | DRG 607 ==
LOC: NEPC 11:13 → NEDA 16:50 → HOCB 18:55 → OBSVTOIN 04-28 10:19
PROVIDERS: ADMIT Hospitalist; ATTEND Hospitalist
PROC: 07DR3ZX Extraction of Iliac Bone Marrow, Percutaneous Approach, Diagnostic (ICD-10-PCS; 2017-04-29)
PROC: 0WBC4ZX Excision of Mediastinum, Percutaneous Endoscopic Approach, Diagnostic (ICD-10-PCS; principal; 2017-05-02 07:49)
DX: R22.2 Localized swelling, mass and lump, trunk (principal); R13.10 Dysphagia, unspecified; R07.89 Other chest pain; I25.2 Old myocardial infarction; F31.9 Bipolar disorder, unspecified; F41.9 Anxiety disorder, unspecified; Z85.72 Personal history of non-Hodgkin lymphomas; J45.909 Unspecified asthma, uncomplicated; Z89.511 Acquired absence of right leg below knee; R11.2 Nausea with vomiting, unspecified; F12.10 Cannabis abuse, uncomplicated; F17.200 Nicotine dependence, unspecified, uncomplicated; F10.10 Alcohol abuse, uncomplicated; Z91.5 Personal history of self-harm; Z92.21 Personal history of antineoplastic chemotherapy
CPT/HCPCS: 38221; 71010; 71275; 74177; 77012; 80048; 80053; 80178; 81001; 82550; 82552; 83690; 83735; 84484; 85025; 85097; 85610; 85730; 86850; 86900; 86901; 86920; 87015; 87070; 87102; 87116; 87205; 87206; 87641; 88184; 88185; 88237; 88264; 88280; 88305; 88307; 88311; 88313; 88331; 93005; 96372; 96374; 96375; 99152; 99153; C1830; C9113; G0364; G0378; J1170; J1644; J2060; J2250; J2270; J2405; J2765; J3010; J7030; Q9963; Q9967

== ENCOUNTER 2017-05-17 09:58 | Inpatient (IN) | payer SELFPAY ==
[2017-05-17] VITALS (7 sets, daily range): BP systolic 113–122; BP diastolic 58–73; PULSE 61–85; RESP 14–18; TEMP 97.8–98.5; O2SAT 96–100
[~2017-05-17] VITALS: Ht 175.3 cm; Wt 90.4 kg
[~2017-05-17 09:58] MED LIST changes: -ALPR.25 PO; -AMBI10TA PO; -HYDR50CA PO; -LAMO25TA PO
[2017-05-17 10:36] LABS: AUTOMATED NEUTROPHIL # 3.9 TH/MM3 (1.8-7.7); BASOPHIL % 0.7 % (0.0-2.0); EOSINOPHIL # 0.1 TH/MM3 (0-0.4); EOSINOPHIL % 1.1 % (0.0-4.0); HEMATOCRIT 42.7 % (39.0-51.0); HEMO FLAGS DIFF FINAL; LYMPH % 29.4 % (9.0-44.0); LYMPHOCYTE # 1.8 TH/MM3 (1.0-4.8); MEAN CELL VOLUME 86.5 FL (80.0-100.0); MEAN CORPUSCULAR HGB CONC 34.7 % (32.0-36.0); MONO % 7.4 % (0.0-8.0); NEUT % 61.4 % (16.0-70.0); PLATELET COUNT 430 TH/MM3 (150-450); RED BLOOD COUNT 4.93 MIL/MM3 (4.50-5.90); RED CELL DISTRIBUTION WIDTH 13.6 % (11.6-17.2); WHITE BLOOD COUNT 6.3 TH/MM3 (4.0-11.0)
[2017-05-17 11:01] LABS: ANION GAP 12 MEQ/L (5-15); BICARBONATE 18.7 MEQ/L (21.0-32.0); BLOOD UREA NITROGEN 12 MG/DL (7-18); CHLORIDE 110 MEQ/L (98-107); GLOMERULAR FILTRATION RATE 96 ML/MIN (>89); POTASSIUM 3.7 MEQ/L (3.5-5.1); SODIUM (NA) 141 MEQ/L (136-145)
[2017-05-17 11:06] LABS: CREATINE KINASE 48 U/L (39-308)
--- NOTE | 2017-05-17 11:35 | RADRPT ---
EXAM DATE/TIME: 05/17/2017 10:24 [place] COMPARISON: CT ABDOMEN & PELVIS W CONTRAST, April 28, 2017, 19:17. CHEST SINGLE AP, May 02, 2017, 9:46. INDICATIONS : Chest pain, shortness of breath, lump in throat. MEDICAL HISTORY : Cardiovascular disease. Hodgkin's lymphoma SURGICAL HISTORY : None. ENCOUNTER: Initial ACUITY: 2 weeks PAIN SCORE: 0/10 LOCATION: Bilateral chest FINDINGS: The heart size is normal. There is some very minimal increased density at the medial right base. Th is area is somewhat obscured by overlying supportive structure, lead. Lungs are otherwise clear. Th ere does continue to be some fullness in the right paratracheal region. There is slight deviation of the inferior trachea towards the left. No effusion is seen. CONCLUSION: 1. Suspected minimal atelectasis or consolidation at the medial right base. This area appears improv ed from the prior exam. 2. Persistent prominence of the right paratracheal area. This area appears less prominent on the cur rent exam. Fabricio Stokes MD on May 17, 2017 at 11:17 Board Certified Radiologist. This report was verified electronically.
[2017-05-17] MEDS ORDERED: MORPHINE SULFATE 4 MG/ML INJ IV PUSH ONE (11:45)
[2017-05-17] MEDS ORDERED: SODIUM CHLOR 0.9% 1000 ML INJ 1,000 ML IV ONE (11:45)
[2017-05-17] MEDS ORDERED: BUSP10TA PO (11:49)
[2017-05-17] MEDS ORDERED: MAGNESIUM HYDROXIDE SUSP 30 ML CUP PO PRN (12:30)
[2017-05-17] MEDS ORDERED: NALOXONE HCL 0.4 MG/ML AMP IV PRN (12:30)
[2017-05-17] MEDS ORDERED: LACTULOSE SYRUP 20 GM/30 ML CUP PO PRN (12:30)
[2017-05-17] MEDS ORDERED: BISACODYL 10 MG SUPP RECTAL PRN (12:30)
[2017-05-17] MEDS ORDERED: SENNOSIDES 8.6 MG TAB PO PRN (12:30)
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
[2017-05-17] MEDS ORDERED: ONDANSETRON HCL 4 MG/2 ML VIAL IV ONE (13:30)
--- NOTE | 2017-05-17 13:40 | PD ---
HPI Chief Complaint: Chest Pain Time Seen by Provider: 11:02 Travel History International Travel<30 days: No Contact w/Intl Traveler<30days: No Traveled to known affect area: No History of Present Illness HPI Is a 42-year-old man presents emergent [place] of chest pain throat pain difficulty swallowing and vomiting. His a history of an of mediastinal mass that was biopsied was in the hospital 2 weeks ago. It showed fibrosis. Fibrotic tissue. He is due to follow-up with Dr. Fernandez, with cardiothoracic surgery, today. He states he's been having worsening symptoms, has not been able to eat 3 or 4 days, with constant retching, and severe throat and chest pain. History Past Medical History Narrative Medical History of Hodgkin's lymphoma in the past Bipolar disorder Asthma Social History Alcohol Use: No Tobacco Use: No Allergies-Medications (Allergen,Severity, Reaction): Coded Allergies: No Known Allergies (Verified , 07/13/16) Reported Meds & Prescriptions Reported Meds & Active Scripts Active [place] (Hydrocodone-Acetaminophen) 10-325 Mg Tab 1 Tab PO Q6HR PRN [place] Carbonate 300 Mg Cap 300 Mg PO BID 14 Days Please see psychaitrist soon to refill this medication Reported Buspirone (Buspirone HCl) 10 Mg Tab 10 Mg PO TID Gabapentin 300 Mg Cap 400 Mg PO TID Review of Systems Except as stated in HPI: all other systems reviewed are Neg Physical Exam Narrative GENERAL: Well-appearing 42 year-old woman, no acute distress. SKIN: Focused skin assessment warm/dry. HEAD: Atraumatic. Normocephalic. EYES: Pupils equal and round. No scleral icterus. No injection or drainage. ENT: No nasal bleeding or discharge. Mucous membranes pink and moist. NECK: Trachea midline. No JVD. CARDIOVASCULAR: Regular rate and rhythm. No murmur appreciated. RESPIRATORY: No accessory muscle use. Clear to auscultation. Breath sounds equal bilaterally. GASTROINTESTINAL: Abdomen soft, non-tender, nondistended. Hepatic and splenic margins not palpable. MUSCULOSKELETAL: Status post right lower extremity amputation. No other obvious deformities. No edema. NEUROLOGICAL: Awake and alert. No obvious cranial nerve deficits. Motor grossly within normal limits. Normal speech. PSYCHIATRIC: Appropriate mood and affect; insight and judgment normal. Data Data Last Documented VS Vital Signs Date Time Temp Pulse Resp B/P Pulse Ox O2 Delivery O2 Flow Rate FiO2 05/17/17 11:43 70 16 122/67 96 Room Air 05/17/17 10:01 98.5 Orders Electrocardiogram (05/17/17 10:12) Complete Blood Count With Diff (05/17/17 10:12) Basic Metabolic Panel (Bmp) (05/17/17 10:12) Ckmb (Isoenzyme) Profile (05/17/17 10:12) Troponin I (05/17/17 10:12) Chest, Single Ap (05/17/17 10:12) Iv Access Insert/Monitor (05/17/17 10:12) Ecg Monitoring (05/17/17 10:12) Oxygen Administration (05/17/17 10:12) Oximetry (05/17/17 10:12) Sodium Chlor 0.9% 1000 Ml Inj (Ns 1000 M (05/17/17 11:45) Morphine Inj (Morphine Inj) (05/17/17 11:45) Buspirone (Buspar) (05/17/17 13:00) Gabapentin (Neurontin) (05/17/17 13:00) [place] Carbonate ([place] Carbonate) (05/17/17 21:00) Admit Order (Ed Use Only) (05/17/17 ) Labs Laboratory Tests Test 05/17/17 10:05 White Blood Count 6.3 TH/MM3 Red Blood Count 4.93 MIL/MM3 Hemoglobin 14.8 GM/DL Hematocrit 42.7 % Mean Corpuscular Volume 86.5 FL Mean Corpuscular Hemoglobin 30.0 PG Mean Corpuscular Hemoglobin 34.7 % Concent Red Cell Distribution Width 13.6 % Platelet Count 430 TH/MM3 Mean Platelet Volume 7.6 FL Neutrophils (%) (Auto) 61.4 % Lymphocytes (%) (Auto) 29.4 % Monocytes (%) (Auto) 7.4 % Eosinophils (%) (Auto) 1.1 % Basophils (%) (Auto) 0.7 % Neutrophils # (Auto) 3.9 TH/MM3 Lymphocytes # (Auto) 1.8 TH/MM3 Monocytes # (Auto) 0.5 TH/MM3 Eosinophils # (Auto) 0.1 TH/MM3 Basophils # (Auto) 0.0 TH/MM3 CBC Comment DIFF FINAL Differential Comment Sodium Level 141 MEQ/L Potassium Level 3.7 MEQ/L Chloride Level 110 MEQ/L Carbon Dioxide Level 18.7 MEQ/L Anion Gap 12 MEQ/L Blood Urea Nitrogen 12 MG/DL Creatinine 0.87 MG/DL Estimat Glomerular Filtration 96 ML/MIN Rate Random Glucose 104 MG/DL Calcium Level 9.1 MG/DL Total Creatine Kinase 48 U/L Troponin I LESS THAN 0.02 NG/ML MDM Medical Decision Making Medical Screen Exam Complete: Yes Emergency Medical Condition: Yes Interpretation(s) LABS: CBC is unremarkable. CMP is remarkable only for low bicarbonate, mildly of a chloride Troponin negative unremarkable chest x-ray: Suspected minimal atelectasis or consolidation the medial right base. Appears improved from prior exam. Persistent prominence of the right paratracheal area. Less prominent on current exam. Differential Diagnosis Esophageal obstruction, dysmotility, drug-seeking, other Narrative Course Medical decision making INITIAL cause a 42 year-old woman presents emergent [place] worsening chest and throat pain, dysphasia, vomiting, the appears to be related to a paratracheal fibrotic mass. He has used increased doses of pain medicine always in the hospital mother some concern for drug-seeking behavior. He states he's not been able to eat any food in the past 4 days or 5 days. Given this concern, I spoke with Dr. Fernandez, cardiothoracic surgery, as well as Dr. Herzog, with oncology. We'll plan on admitting the patient for further evaluation of his swallowing, barium swallow, consider GI consultation. Diagnosis Primary Impression: Peritracheal mass Additional Impression: Vomiting Miah Benavides MD May 17, 2017 13:40
--- NOTE | 2017-05-17 15:21 | RADRPT ---
EXAM DATE/TIME: 05/17/2017 14:23 [place] COMPARISON: No previous studies available for comparison. INDICATIONS : Dysphagia, short of breath. FLUORO TIME: 0.7 minutes IMAGE COUNT: 7 CONTRAST: 1. Liquid E-Z Paque Barium Sulfate (60% w/v, 41% w.w) MEDICAL HISTORY : Lymphoma. Myocardial infarction. asthma SURGICAL HISTORY : biopsy of lump in his throat 04/29/17, ENCOUNTER: Initial ACUITY: 2 weeks PAIN SCORE: 10/10 LOCATION: Bilateral neck FINDINGS: Air-contrast views of the hypopharynx demonstrate a normal mucosal surface without filling defect. R apid sequence images of the hypopharynx and cervical esophagus during the passage of barium demonstra te a normal swallowing function. There is a focal lesion seen in the upper cervical esophagus at the mid cervical spine level. This is seen as an area of shouldering and mild mucosal irregularity. The lumen is narrowed by approximately 1/3 the diameter of the esophagus above and below the lesion. The more distal aspect of the esophagus is normal. No other focal lesions are seen. No evidence of aspir ation. The gastroesophageal junction is normal in configuration without evidence of hiatal hernia. CONCLUSION: Focal mucosal lesion at the upper cervical esophagus. Fabricio Stokes MD on May 17, 2017 at 15:15 Board Certified Radiologist. This report was verified electronically.
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
[2017-05-17] MEDS: HEPARIN SODIUM - SQ 10,000 UNITS/ML VIAL SQ SCH ×2 (15:38→21:14)
[2017-05-17] MEDS: busPIRone HCL 10 MG TAB PO SCH ×2 (15:38→17:52)
[2017-05-17] MEDS: GABAPENTIN 300 MG CAP PO SCH ×2 (15:39→17:53)
[2017-05-17] MEDS: SODIUM CHLOR 0.9% 1000 ML INJ 1,000 ML IV SCH ×2 (15:39→23:06)
[2017-05-17] MEDS: MORPHINE SULFATE 4 MG/ML INJ IV PUSH PRN (16:34)
--- NOTE | 2017-05-17 17:15 | EKG ---
Date Performed: 05/17/2017 Time Performed: 10:10:41 PTAGE: 42 years EKG: Sinus rhythm NORMAL ECG PREVIOUS TRACING : 04/27/2017 11.30 No significant change from previous tracing noted. DOCTOR: aHrman Mccarty Interpretating Date/Time 05/17/2017 17:09:45
[2017-05-17 19:13] LABS: BLOOD, URINE NEG (NEG); COMMENT (UR) CULT NOT INDICATED; CULTURE IF INDICATED CULT NOT INDICATED; GLUCOSE,URINE NEG (NEG); KETONE, URINE 10 mg/dL (NEG); MUCUS URINE MOD /lpf (OCC); NITRITE,URINE NEG (NEG); URINE COLOR YELLOW (YELLW/STRAW)
[2017-05-17] MEDS: SODIUM CHLORIDE 0.9% FLUSH 10 ML FLUSH IV FLUSH SCH (21:00)
[2017-05-17] MEDS: DOCUSATE SODIUM 50 MG/SENNA 8.6 MG TAB PO SCH (21:13)
[2017-05-17] MEDS: LITHIUM CARBONATE 300 MG CAP PO SCH (21:13)
[2017-05-18] VITALS (11 sets, daily range): BP systolic 113–133; BP diastolic 64–84; PULSE 61–78; RESP 18–22; TEMP 96.4–98.1; O2SAT 95–99
[2017-05-18] MEDS: MORPHINE SULFATE 4 MG/ML INJ IV PUSH PRN ×3 (00:02→17:55)
[2017-05-18] MEDS: HEPARIN SODIUM - SQ 10,000 UNITS/ML VIAL SQ SCH (05:01)
[2017-05-18 05:12] LABS: AUTOMATED NEUTROPHIL # 2.4 TH/MM3 (1.8-7.7); BASOPHIL % 0.8 % (0.0-2.0); EOSINOPHIL # 0.2 TH/MM3 (0-0.4); EOSINOPHIL % 2.8 % (0.0-4.0); HEMATOCRIT 37.6 % (39.0-51.0); HEMO FLAGS DIFF FINAL; LYMPH % 48.8 % (9.0-44.0); LYMPHOCYTE # 2.9 TH/MM3 (1.0-4.8); MEAN CELL VOLUME 87.8 FL (80.0-100.0); MEAN CORPUSCULAR HGB CONC 34.1 % (32.0-36.0); MONO % 7.1 % (0.0-8.0); NEUT % 40.5 % (16.0-70.0); PLATELET COUNT 361 TH/MM3 (150-450); RED BLOOD COUNT 4.28 MIL/MM3 (4.50-5.90); RED CELL DISTRIBUTION WIDTH 13.1 % (11.6-17.2); WHITE BLOOD COUNT 5.8 TH/MM3 (4.0-11.0)
[2017-05-18 05:30] LABS: BICARBONATE 25.6 MEQ/L (21.0-32.0); POTASSIUM 3.5 MEQ/L (3.5-5.1)
[2017-05-18] MEDS: ONDANSETRON HCL 4 MG/2 ML VIAL IVP PRN ×2 (07:24→23:35)
[2017-05-18] MEDS: GABAPENTIN 400 MG CAP PO SCH ×3 (08:05→17:32)
[2017-05-18] MEDS: busPIRone HCL 10 MG TAB PO SCH ×3 (08:05→17:31)
[2017-05-18] MEDS: SODIUM CHLOR 0.9% 1000 ML INJ 1,000 ML IV SCH (08:06)
[2017-05-18] MEDS: LITHIUM CARBONATE 300 MG CAP PO SCH ×2 (08:06→23:12)
[2017-05-18] MEDS: SODIUM CHLORIDE 0.9% FLUSH 10 ML FLUSH IV FLUSH SCH ×2 (08:06→21:00)
[2017-05-18] MEDS: DOCUSATE SODIUM 50 MG/SENNA 8.6 MG TAB PO SCH ×2 (08:06→23:12)
[2017-05-18] MEDS ORDERED: PROPOFOL 200 MG/20 ML AMP IV ONE (14:20)
--- NOTE | 2017-05-18 14:38 | HHI.GIFU ---
Subjective Remarks Immediate postop note: EGD with biopsy Indication: dysphagia, paratracheal mass Meds: GET with propofol Findings: Esophagus: proximal esophageal narrowing from extrinsic lesion pinching the esophagus. Stomach: mild gastritis Bx taken Duodenum: normal Objective Vitals I&O Vital Signs Date Time Temp Pulse Resp B/P Pulse Ox O2 Delivery O2 Flow Rate FiO2 05/18/17 10:01 98.0 61 18 113/67 97 05/18/17 08:00 71 05/18/17 07:59 97 05/18/17 07:40 98.0 61 18 113/67 97 05/18/17 03:43 98.1 72 18 119/69 97 05/18/17 01:26 64 05/18/17 01:19 16 05/17/17 23:55 97.8 78 18 115/58 100 05/17/17 20:51 98.1 78 18 120/70 98 05/17/17 19:35 96 05/17/17 15:05 98.2 61 16 115/73 96 I/O 05/17/17 05/17/17 05/17/17 05/18/17 05/18/17 05/18/17 07:00 15:00 23:00 07:00 15:00 23:00 Intake Total 1340 ml 220 ml Balance 1340 ml 220 ml Intake Oral 240 ml 20 ml IV Total 1100 ml 200 ml # Voids 1 1 Laboratory Laboratory Tests Test 05/17/17 05/18/17 18:17 04:29 Urine Color YELLOW Urine Turbidity CLEAR Urine pH 6.0 Urine Specific [place] 1.028 Urine Protein TRACE Urine Glucose (UA) NEG Urine Ketones 10 Urine Occult Blood NEG Urine Nitrite NEG Urine Bilirubin NEG Urine Urobilinogen LESS THAN 2.0 Urine Leukocyte Esterase NEG Urine RBC LESS THAN 1 Urine WBC 1 Urine Mucus MOD Microscopic Urinalysis Comment CULT NOT INDICATED White Blood Count 5.8 Red Blood Count 4.28 Hemoglobin 12.8 Hematocrit 37.6 Mean Corpuscular Volume 87.8 Mean Corpuscular Hemoglobin 30.0 Mean Corpuscular Hemoglobin 34.1 Concent Red Cell Distribution Width 13.1 Platelet Count 361 Mean Platelet Volume 7.8 Neutrophils (%) (Auto) 40.5 Lymphocytes (%) (Auto) 48.8 Monocytes (%) (Auto) 7.1 Eosinophils (%) (Auto) 2.8 Basophils (%) (Auto) 0.8 Neutrophils # (Auto) 2.4 Lymphocytes # (Auto) 2.9 Monocytes # (Auto) 0.4 Eosinophils # (Auto) 0.2 Basophils # (Auto) 0.0 CBC Comment DIFF FINAL Differential Comment Sodium Level 142 Potassium Level 3.5 Chloride Level 109 Carbon Dioxide Level 25.6 Anion Gap 7 Blood Urea Nitrogen 9 Creatinine 0.78 Estimat Glomerular Filtration 109 Rate Random Glucose 93 Calcium Level 8.1 Physical Exam HEENT: Pupils round and reactive to light; normocephalic; atraumatic; no jaundice. Throat is clear. NECK: Neck is supple, no JVD, no lymphadenopathy. CHEST: Chest is clear to auscultation and percussion. CARDIAC: Regular rate and rhythm with no murmur gallop or rubs. ABDOMEN: Soft, nondistended, nontender; no hepatosplenomegaly; bowel sounds are present in all four quadrants. EXTREMITIES: No clubbing, cyanosis, or edema. SKIN: Normal; no rash; no jaundice. CASING IN LINE SETTER: No focal deficits; alert and oriented times three. Assessment and Plan Plan ASSESSMENT - dysphagia, odynophagia - When he tries to swallow he feels tightness and pressure. Food gets stuck near the top of his throat, with any solid food. He can swallow water but it makes him gag. barium swallow 05-17-17 --> focal mucosal lesion upper cervical esophagus, lumen is narrowed by approximately 1/3 diameter above and below lesion - paratracheal mass - CXR 05-17-17 --> persistent prominence of right paratracheal area, this area appears less prominent on current exam CTA 04-27-17 --> 4.2 x 5.5 cm right paratracheal mass lesion which displaces the trachea leftward, appears isolated. path --> fibrotic nodule - diarrhea - unclear etiology, He admits loose stool BID since April but he has only eaten liquid diet, little solid food intake. Denies recent abx use, recent travel, sick contactswill do stool cx - EGD shows extrinsic lesion pinching upper esophagus. Unable to dilate or biopsy. Also mild gastritis. Bx taken there. PLAN - cardiothoracic surgery consult - oncology consult - stool cx - consider PEG placement Leonardo Rivera MD May 18, 2017 2:38 pm
[2017-05-18] MEDS ORDERED: DO NOT ADM ANY ANTICOAGULANT DRUGS PRN (14:50)
[2017-05-18] MEDS ORDERED: *morphine SULFATE 8 MG/ML PERIprocedure ONLY ONE (14:52)
[2017-05-18] MEDS ORDERED: ACETAMINOPHEN 325MG/HYDROcodone 7.5MG/15ML UDC PO PRN (15:45)
--- NOTE | 2017-05-18 15:53 | HHI.PR ---
Subjective Remarks Follow-up for dysphagia. The patient is seen after EGD with general anesthesia. The patient complains of severe throat pain. He locates the pain to his upper chest and lower neck. He states the pain is worse when swallowing. He states the pain is been present since the end of March when ever he was diagnosed with the mass. The patient will like to try liquid Lortab for pain. At this point, the patient is asking to have surgery may remove the mass and this is the only solution he is willing to consider. He does not want to try chemotherapy, radiation, or have a PEG tube placed. Objective Vitals Vital Signs Date Time Temp Pulse Resp B/P Pulse Ox O2 Delivery O2 Flow Rate FiO2 05/18/17 15:37 97.6 71 22 133/79 99 05/18/17 15:20 77 14 98 05/18/17 15:00 66 14 117/62 94 Room Air 05/18/17 14:45 65 14 125/71 95 Room Air 05/18/17 14:42 98.4 89 22 128/76 98 05/18/17 10:01 98.0 61 18 113/67 97 05/18/17 08:00 71 05/18/17 07:59 97 05/18/17 07:40 98.0 61 18 113/67 97 05/18/17 03:43 98.1 72 18 119/69 97 05/18/17 01:26 64 05/18/17 01:19 16 05/17/17 23:55 97.8 78 18 115/58 100 05/17/17 20:51 98.1 78 18 120/70 98 05/17/17 19:35 96 I/O 05/17/17 05/17/17 05/17/17 05/18/17 05/18/17 05/18/17 07:00 15:00 23:00 07:00 15:00 23:00 Intake Total 1340 ml 1020 ml Balance 1340 ml 1020 ml Intake Oral 240 ml 20 ml IV Total 1100 ml 200 ml Other 800 ml # Voids 1 1 Result Diagram: 05/18/17 0429 05/18/17 0429 Imaging Last Impressions Chest X-Ray 05/17/17 1012 Signed Impressions: Service Date/Time: Wednesday, May 17, 2017 10:24 - CONCLUSION: 1. Suspected minimal atelectasis or consolidation at the medial right base. This area appears improved from the prior exam. 2. Persistent prominence of the right paratracheal area. This area appears less prominent on the current exam. Fabricio Stokes MD Barium Swallow X-Ray 05/17/17 0000 Signed Impressions: Service Date/Time: Wednesday, May 17, 2017 14:23 - CONCLUSION: Focal mucosal lesion at the upper cervical esophagus. Fabricio Stokes MD Objective Remarks GENERAL: Well-developed well-nourished. Tearful, in mild distress secondary to pain. SKIN: Warm and dry. No lesions noted. HEENT: Normocephalic. Pupils equal and round. Mucous membranes pink and moist. CARDIOVASCULAR: Regular rate and rhythm. No murmur appreciated. RESPIRATORY: No accessory muscle use. Clear to auscultation. Breath sounds equal bilaterally. GASTROINTESTINAL: Abdomen soft, non-tender, nondistended. Bowel sounds x4. MUSCULOSKELETAL: Right BKA. No clubbing or cyanosis. No edema. NEUROLOGICAL: Awake and alert. No focal neurological deficits. Moves upper and lower extremities spontaneously. Normal speech. PSYCHIATRIC: Appropriate mood and affect; insight and judgment normal. A/P Assessment and Plan 41-year-old male with a past medical history of Hodgkin's lymphoma, bipolar disorder who presented with recurrent dysphagia Dysphagia secondary to paratracheal mass/Known right-sided paratracheal mass with recent admission s/p biopsy/history of Hodgkin's lymphoma Reviewed: Chest x-ray with improving right base atelectasis and persistent prominence of the right paratracheal area. Barium swallow with focal mucosal lesion of the upper cervical esophagus. -GI consulted. Performed EGD but was unable to dilate her biopsy; also mild gastritis with biopsy. Consider PEG placement, although the patient currently refuses. -Cardiothoracic surgery consulted. -Medical oncology consulted. -Consider palliative care consultation for goals of care if surgery is not an option. -IVF -Pain control with liquid Lortab and IV morphine. Bipolar disorder: Chronic. Continue gabapentin, lithium, BuSpar. DVT prophylaxis: Heparin on hold with procedure. SCDs. Discharge Planning Follow-up specialist recommendations. Eliazar Ward May 18, 2017 15:53
[2017-05-18] MEDS: D5-1/2 NS + KCL 20 MEQ INJ 1,000 ML IV SCH (16:21)
[2017-05-18] MEDS ORDERED: LORazepam 0.5 MG TAB PO PRN (18:30)
[2017-05-18] MEDS: oxyCODONE HCL ORAL CONC 20 MG/ML SYRINGE PO PRN (23:35)
[2017-05-19] VITALS (7 sets, daily range): BP systolic 120–134; BP diastolic 68–81; PULSE 53–80; RESP 14–20; TEMP 96.2–98.8; O2SAT 94–98
[2017-05-19] MEDS: MORPHINE SULFATE 4 MG/ML INJ IV PUSH PRN ×3 (04:21→16:22)
[2017-05-19] MEDS: D5-1/2 NS + KCL 20 MEQ INJ 1,000 ML IV SCH ×2 (05:41→18:43)
[2017-05-19] MEDS: LITHIUM CARBONATE 300 MG CAP PO SCH ×2 (07:17→20:37)
[2017-05-19] MEDS: busPIRone HCL 10 MG TAB PO SCH ×3 (07:17→18:22)
[2017-05-19] MEDS: GABAPENTIN 400 MG CAP PO SCH ×3 (07:18→18:22)
[2017-05-19] MEDS: SODIUM CHLORIDE 0.9% FLUSH 10 ML FLUSH IV FLUSH SCH ×2 (07:18→20:37)
[2017-05-19] MEDS: DOCUSATE SODIUM 50 MG/SENNA 8.6 MG TAB PO SCH ×2 (07:18→20:37)
--- NOTE | 2017-05-19 08:26 | HHI.GIFU ---
Subjective Remarks Resting in bed. States he has not been able to swallow more than liquids since he woke up on April 24. He also reports that liquids have a hard time passing and c/o odynophagia from mid esophagus up to upper esophagus. D/W patient possible PEG tube- he will talk this over with his . Objective Vitals I&O Vital Signs Date Time Temp Pulse Resp B/P Pulse Ox O2 Delivery O2 Flow Rate FiO2 05/19/17 07:57 57 05/19/17 07:21 97.8 53 14 120/70 96 05/19/17 04:52 18 05/19/17 04:07 96.2 58 20 131/69 98 05/19/17 00:44 18 05/18/17 23:32 97.1 78 18 127/64 96 05/18/17 23:21 96.4 67 20 128/84 95 05/18/17 22:48 73 05/18/17 20:58 97.2 65 20 120/75 98 05/18/17 15:37 97.6 71 22 133/79 99 05/18/17 15:20 77 14 98 05/18/17 15:00 66 14 117/62 94 Room Air 05/18/17 14:45 65 14 125/71 95 Room Air 05/18/17 14:42 98.4 89 22 128/76 98 05/18/17 10:01 98.0 61 18 113/67 97 I/O 05/18/17 05/18/17 05/18/17 05/19/17 05/19/17 05/19/17 07:00 15:00 23:00 07:00 15:00 23:00 Intake Total 1340 ml 1020 ml 900 ml Output Total 700 ml 700 ml Balance 1340 ml 1020 ml -700 ml 200 ml Intake Oral 240 ml 20 ml IV Total 1100 ml 200 ml 900 ml Other 800 ml Output Urine Total 700 ml 700 ml # Voids 1 1 2 Laboratory Laboratory Tests Test 05/18/17 21:00 Oracle Level 0.1 Imaging Last Impressions Chest X-Ray 05/17/17 1012 Signed Impressions: Service Date/Time: Wednesday, May 17, 2017 10:24 - CONCLUSION: 1. Suspected minimal atelectasis or consolidation at the medial right base. This area appears improved from the prior exam. 2. Persistent prominence of the right paratracheal area. This area appears less prominent on the current exam. Fabricio Stokes MD Barium Swallow X-Ray 05/17/17 0000 Signed Impressions: Service Date/Time: Wednesday, May 17, 2017 14:23 - CONCLUSION: Focal mucosal lesion at the upper cervical esophagus. Fabricio Stokes MD Physical Exam HEENT: Normocephalic; atraumatic; no jaundice. CHEST: CTA CARDIAC: RRR ABDOMEN: Soft, nondistended, nontender; no hepatosplenomegaly; bowel sounds are present in all four quadrants. EXTREMITIES: No clubbing, cyanosis, or edema. SKIN: Normal; no rash; no jaundice. DISH TECHNICIAN: No focal deficits; alert and oriented times three. Assessment and Plan Plan ASSESSMENT - Dysphagia, odynophagia. Only been able to take liquids since 04/24/17. Has difficulty swallowing liquids as well and c/o odynophagia from mid esophagus to upper esophageal area. Barium Swallow (05/17/17)---> Focal mucosal lesion at the upper cervical esophagus. EGD (05/18/17)-----> Proximal esophageal narrowing from extrinsic lesion pinching the esophagus- unable to biopsy, mild gastritis in stomach, s/p biopsy, normal duodenum. Pathology pending. PPI. - Paratracheal mass. CTA (04/27/17)----> 4.2 x 5.5 cm right paratracheal mass lesion which displaces the trachea leftward, appears isolated. Pathology --> organizing fat necrosis adn hematoma, clinically right paratracheal mass, hematoma and focal foreign body reaction, clinically rith paratracheal mass. CXR (05/17/17)----> 1. Suspected minimal atelectasis or consolidation at the medial right base. This area appears improved from the prior exam. 2. Persistent prominence of the right paratracheal area. This area appears less prominent on the current exam. CVT/Oncology consulted. Per CVT, high risk for surgery at this facility, possible transfer to tertiary center - Diarrhea. Not currently having. 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 Rivera and myself and this note is written on his behalf Sury Ayala May 19, 2017 08:26
[2017-05-19] MEDS: ONDANSETRON HCL 4 MG/2 ML VIAL IVP PRN ×2 (08:42→16:22)
[2017-05-19] MEDS: PANTOPRAZOLE SODIUM 40 MG VIAL IV PUSH SCH (08:43)
--- NOTE | 2017-05-19 08:48 | MB ---
cc: TASHA MEYER M.D., TRAVIS D. PA DATE OF CONSULTATION 05/18/2017 DATE OF 1975 REFERRING PHYSICIAN RICARDO Vera CHIEF COMPLAINT Eliazar Ward requests a consultation for Mr. Arguelles regarding mediastinal mass and history of Hodgkin's lymphoma. HISTORY OF PRESENT ILLNESS Mr. Arguelles is a 41-year-old man with history of Hodgkin's disease diagnosed at age of 21. Information of pathology from his initial diagnosis was not available during our last consultation. He was seen initially in 04/27/2017 with complains of an elephant sitting on his chest. He had difficulty getting to his car and fell. His course was complicated by pvipe-[id number] amputation on the right. He has a history of depression and was Woody acted recently. Workup included imaging study that showed a 4.2 x 5.5 mediastinal mass in the right paratracheal distribution that displaces the trachea left leftward. Workup during the last admission shows a bone marrow biopsy unaffected by Hodgkin's lymphoma. The flow cytometric analysis shows no evidence of neoplastic leukocyte population. Furthermore mediastinoscopy for the right paratracheal mass only showed organized fat necrosis, hematoma, the right paratracheal mass had foreign body reaction, however, there was no evidence of lymphoma. The plan was to see Mr. Arguelles on an outpatient basis to follow up with CT PET scan. Apparently on the day of his appointment in the outpatient clinic he came into the hospital with complaints of pain. Case was discussed with Dr. Kevin Benavides who elected to admit the patient because of his pain symptoms. Gastroenterology was consulted. A barium swallow confirmed lesion in the upper cervical esophagus. Upper endoscopy was performed, the results of which are still pending. Mr. Arguelles was in distress. He wants to swallow again. He does not care what the consequences are and potential risk of the surgery. He is quite impulsive in his statements. He complains of pain that is not adequately controlled by morphine sulfate and Roxicodone ordered by the primary team. Hematology/Oncology is consulted for the history of Hodgkin's lymphoma with a paratracheal mass. PAST MEDICAL HISTORY 1. Hodgkin's disease. 2. Bipolar disorder. 3. Dysphasia. 4. Chest pain. 5. Asthma. PAST SURGICAL HISTORY 1. Mediastinoscopy and biopsy. 2. Lymph node biopsy. 3. Right vlqbw-bpd-tadr amputation. 4. Bone marrow biopsy. FAMILY HISTORY Mother had multiple lipomas, father as well. SOCIAL HISTORY He is , lives with his kids and . He smokes and drinks socially. He uses marijuana occasionally. ALLERGIES NO KNOWN DRUG ALLERGIES. CURRENT MEDICATIONS Include: 1. Morphine sulfate. 2. Roxicodone. 3. Potassium. 4. Neurontin. 5. [place]. 6. [place]-Colace. 7. BuSpar. 8. Ondansetron. PHYSICAL EXAMINATION VITAL SIGNS: Temperature 97.6, heart rate 71, respiratory rate 22, blood pressure 133/79, saturation 99%. GENERAL: Kindra is a well-developed, well-nourished man who looks his stated age. He looks well, although distraught and upset. HEENT: His pupils are round, reactive to light and accommodation. Oropharynx is clear. NECK: Supple. LUNGS: Clear anteriorly. CARDIOVASCULAR: Exam reveals normal rate, rhythm. ABDOMEN: Benign. EXTREMITIES: Lower extremity with the right ufdlu-pul-zhpa amputation. NEUROLOGIC: Exam is nonfocal. He is impulsive, emotional. LABORATORY DATA Basic metabolic panel is normal. CBC significant for mild anemia hemoglobin 12.8. ASSESSMENT/PLAN Mr. Arguelles is a 42-year-old man with history of Hodgkin's lymphoma treated and has been in remission since the age of 21. His course is complicated by the right pqard-jbd-woek amputation in light of an accident. I discussed with Ms. Arguelles the difficulty in establishing a diagnosis of this right paratracheal mass. So far the mediastinal biopsy was nondiagnostic of recurrent Hodgkin's lymphoma nor is a bone marrow biopsy. I recommend outpatient evaluation with CT PET scan. Indeed if the PET scan is positive for right paratracheal mass, there is more information to consider advocating removal or resection of the mass. He is being assessed by cardiothoracic surgery. Dr. Fernandez has seen him in consultation for his surgery. We discussed the potential risks and benefits and rationale for deferring definitive surgery. In the meantime he complains of not being able to swallow, and he has not been able to eat which is his main complaint. However, he refuses the Peg tube feeding. At the time of consultation we discussed the option of Peg tube feeding that was offered to him by gastroenterology to supplement his nutrition. He is advised to discuss this further with his family and his . Consult with speech pathology to assess his risk of aspiration. He has some discomfort associated with swallowing. We will assess the necessity and urgency of the Peg tube. He was able to swallow for the Barium swallow. Speech pathology assessment information may be helpful for the patient to make a decision. I defer his pain management to Dr. Ward. We discussed his increased pain requirement. His main complaint is related to the mass in the chest as well as the difficulty and pain in swallowing. His questions were answered to his satisfaction. Addendum: Discussed in multidisciplinary thoracic conference 05/19/17. CTS would offer him exploratory surgery, aim to get diagnostic specimen. Dilemma on how to treat his most pressing symptom of dysphagia and pain as it associates with the paratracheal mass. MD BABAR Murdock/ANNALEE /6:23 PM /8:50 AM KASSIDY
--- NOTE | 2017-05-19 10:25 | HHI.PR ---
Subjective Remarks Follow-up for dysplasia and thoracic mass. The patient reports throat pain is much better controlled on liquid Percocet. Speech therapy had recommended full liquids and the patient is excited to try that. No other acute complaints today. Awaiting surgery evaluation. The patient understands the importance of outpatient follow-up if cleared by surgery and tolerating full liquids. Objective Vitals Vital Signs Date Time Temp Pulse Resp B/P Pulse Ox O2 Delivery O2 Flow Rate FiO2 05/19/17 07:57 57 05/19/17 07:21 97.8 53 14 120/70 96 05/19/17 04:52 18 05/19/17 04:07 96.2 58 20 131/69 98 05/19/17 00:44 18 05/18/17 23:32 97.1 78 18 127/64 96 05/18/17 23:21 96.4 67 20 128/84 95 05/18/17 22:48 73 05/18/17 20:58 97.2 65 20 120/75 98 05/18/17 15:37 97.6 71 22 133/79 99 05/18/17 15:20 77 14 98 05/18/17 15:00 66 14 117/62 94 Room Air 05/18/17 14:45 65 14 125/71 95 Room Air 05/18/17 14:42 98.4 89 22 128/76 98 I/O 05/18/17 05/18/17 05/18/17 05/19/17 05/19/17 05/19/17 06:59 14:59 22:59 06:59 14:59 22:59 Intake Total 1340 ml 1020 ml 900 ml Output Total 700 ml 700 ml Balance 1340 ml 1020 ml -700 ml 200 ml Intake Oral 240 ml 20 ml IV Total 1100 ml 200 ml 900 ml Other 800 ml Output Urine Total 700 ml 700 ml # Voids 1 1 2 Result Diagram: 05/18/17 0429 05/18/17 0429 Imaging Last Impressions Chest X-Ray 05/17/17 1012 Signed Impressions: Service Date/Time: Wednesday, May 17, 2017 10:24 - CONCLUSION: 1. Suspected minimal atelectasis or consolidation at the medial right base. This area appears improved from the prior exam. 2. Persistent prominence of the right paratracheal area. This area appears less prominent on the current exam. Fabricio Stokes MD Barium Swallow X-Ray 05/17/17 0000 Signed Impressions: Service Date/Time: Wednesday, May 17, 2017 14:23 - CONCLUSION: Focal mucosal lesion at the upper cervical esophagus. Fabricio Stokes MD Objective Remarks GENERAL: Well-developed well-nourished. In no acute distress. Appears more comfortable today. SKIN: Warm and dry. No lesions noted. HEENT: Normocephalic. Pupils equal and round. Mucous membranes pink and moist. CARDIOVASCULAR: Regular rate and rhythm. No murmur appreciated. RESPIRATORY: No accessory muscle use. Clear to auscultation. Breath sounds equal bilaterally. GASTROINTESTINAL: Abdomen soft, non-tender, nondistended. Bowel sounds x4. MUSCULOSKELETAL: Right BKA. No clubbing or cyanosis. No edema. NEUROLOGICAL: Awake and alert. No focal neurological deficits. Moves upper and lower extremities spontaneously. Normal speech. PSYCHIATRIC: Appropriate mood and affect; insight and judgment normal. A/P Assessment and Plan 41-year-old male with a past medical history of Hodgkin's lymphoma, bipolar disorder who presented with recurrent dysphagia Dysphagia secondary to paratracheal mass/Known right-sided paratracheal mass with recent admission s/p biopsy/history of Hodgkin's lymphoma Reviewed: Chest x-ray with improving right base atelectasis and persistent prominence of the right paratracheal area. Barium swallow with focal mucosal lesion of the upper cervical esophagus. -GI consulted. Performed EGD but was unable to dilate or biopsy; also mild gastritis with biopsy. Consider PEG placement, although the patient currently refuses. -Cardiothoracic surgery consulted, appreciate input -Medical oncology consulted, D/W Dr. Herzog, recommended pain control and outpatient PET scan. -Consider palliative care consultation for goals of care if surgery is not an option. -IVF until tolerating oral intake -Pain currently well controlled with liquid oxycodone prn. -Speech therapy consulted, reportedly recommended liquid diet -Trial of liquid diet Bipolar disorder: Chronic. Continue gabapentin, lithium, BuSpar. DVT prophylaxis: Heparin. SCD. Discharge Planning 1300 cardiothoracic surgery evaluated the patient, recommended surgery for mass if patient remains in the hospital. The patient remains apprehensive about discharge on liquid diet. We will keep the patient inpatient until possible mass debulking by surgery on Tuesday. Eliazar Ward May 19, 2017 10:25 follow-up with oncology, cardiothoracic surgery, and gastroenterology. Eliazar Ward May 19, 2017 10:25
[2017-05-19] MEDS ORDERED: OXYC1CON3 PO (13:12)
--- NOTE | 2017-05-19 13:12 | MR ---
cc: MARITZA LUNDBERG. DATE 05/18/2017 PROCEDURE Esophagogastroduodenoscopy with biopsy INDICATION Dysphagia HISTORY The patient has a history of a paratracheal mass that is in the process of being evaluated. The initial biopsy has been performed. REFERRING PHYSICIAN Dk Wilkes MD PROCEDURE After informed consent was obtained, the patient was placed in the supine position. He was given a general endotracheal intubation using Propofol and the procedure was performed once he was adequately sedated. The Pentax video scope was inserted into the oropharynx and advanced through the esophagus into the stomach and duodenum. Reaching the descending portion, the scope was then withdrawn slowly examining the mucosal surfaces carefully. A retroflex exam was performed in the fundus and cardia. The scope was straightened and a biopsy was obtained in the gastric antrum. The scope was then withdrawn slowly through the esophagus. There was an intrinsically compressing lesion on the esophagus in the proximal esophagus. It was not possible to take a biopsy or to dilate the esophagus. The procedure was then terminated. He tolerated the procedure well and was returned to the recovery area in good condition. FINDINGS 1. The esophagus was normal except for the proximal esophagus where there was an extrinsically compressing lesion in the very upper most part of the esophagus. There was no mucosal irregularity or lesion present. No biopsy or dilatation was attempted. 2. The stomach appeared normal except for some mild gastritis and a biopsy was obtained. 3. The duodenum was normal. IMPRESSION 1. Extrinsically compressing lesion narrowing the esophagus. This is probable the paratracheal mass. 2. Mild gastritis, biopsy pending. PLAN 1. The patient will be observed in the PACU until he is stable and return to his bed. 2. Await the input from surgery. 3. He probably will need a PEG tube to allow for adequate nutrition during his treatment. MD JIMMY Andino/JOSEE /2:48 PM /1:06 PM [facility] HOSPITALAndrei
[2017-05-19] MEDS ORDERED: OMEP20TA PO (13:15)
--- NOTE | 2017-05-19 13:29 | PD.CAR.PN ---
CVT Progress Note Subjective/Hospital Course: Pt well known to me from recent hospitalization for chest pain and shortness of breath. He was identified as having a right paratracheal mass and underwent cervical mediastinoscopy with incisional biopsy of the mass. Histology is consistent with a benign, fibrotic lesion without evidence of underlying malignancy. He now returns to the ED with c/o dysphagia, odynophagia and chest pain. In reviewing the chest images, he has a definite mass in the right paratracheal region which wraps around the right bronchus, right pulmonary artery, SVC and surrounding structures. I do not see any extrinsic compression of the esophagus by this mass that would explain his swallowing symptoms. I had a lengthy conversation with the patient. My concern is that given the masses proximity to the surrounding vital neuro-vascular structures, it may not be resectable and any attempt at removing it may lead to serious complications. He is adamant that he cannot go on the way he is and wants to try anything possible. Ideally, it would be beneficial to have the PET scan to identify the area of particular concern in regards to obtaining an underlying diagnosis, however, he states that he cannot go home in his current condition. I will leave the decision regarding his discharge disposition to his primary care providers. However, should he get admitted, I can offer to perform an exploratory right thoracotomy on Tuesday with possible attempts at resecting or at least debulking the mass. He understands that there is a chance that I may not be able to do anything depending upon the intraoperative findings. He also understands that removing/debulking the mass may not alleviate any of his swallowing complaints or chest pressure symptoms. Thanks for allowing me to participate in the care of this patient. Objective: Vital Signs Date Time Temp Pulse Resp B/P Pulse Ox O2 Delivery O2 Flow Rate FiO2 05/19/17 11:35 98.2 72 18 134/81 97 05/19/17 07:57 57 05/19/17 07:21 97.8 53 14 120/70 96 05/19/17 04:52 18 05/19/17 04:07 96.2 58 20 131/69 98 05/19/17 00:44 18 05/18/17 23:32 97.1 78 18 127/64 96 05/18/17 23:21 96.4 67 20 128/84 95 05/18/17 22:48 73 05/18/17 20:58 97.2 65 20 120/75 98 05/18/17 15:37 97.6 71 22 133/79 99 05/18/17 15:20 77 14 98 05/18/17 15:00 66 14 117/62 94 Room Air 05/18/17 14:45 65 14 125/71 95 Room Air 05/18/17 14:42 98.4 89 22 128/76 98 Result Diagram: 05/18/17 0429 05/18/17 0429 Pati Fernandez MD May 19, 2017 13:29
[2017-05-19] MEDS ORDERED: ceFAZolin 2 GM PREMIX 50 ML IV SCH (13:45)
[2017-05-19] MEDS ORDERED: CHLORHEXIDINE GLUCONATE 4% SOLN 120 ML BTL TOPICAL SCH (13:45)
--- NOTE | 2017-05-19 13:46 | HHI.DS ---
Discharge Summary Admission Date May 17, 2017 at 12:29 Admitting Diagnosis dysphagia, chest pain, mediastinal mass Brief History - From Admission This is a pleasant 41 y/o male just recently discharged from this facility, he has history of Hodgkin's Lymphoma, who came to ER with Dysphagia, Intractable nausea and vomit, No cough, fever or chills. Denies any changes in bowel or bladder habits. He particularly denies any fever, night sweats, weight loss. As we know the patient was just recently discharged on May 03 was admitted on April 28, due to Chest pain and Lung Mass, status post Bone marrow biopsy, status post Mediastinal mass biopsy reported diagnosis of Fibrotic mass, Bone marrow biopsy attempted at bedside 04/28/2017 by hematology oncology.he has Right sided Paratracheal mass 4.2 x 5.5 cms, had Chest CT angiogram 04/27/2017. Imaging studies show right paratracheal mass pushing against the trachea to the left, CT abdomen and Pelvis shows no acute findings. Invasive radiology performed Bone marrow Bx done on 2016. Patient underwent surgical biopsy on 05/02/2017. as per last admission the patient is active with Alcohol, Tobacco and Marijuana, he has Bipolar Disorder. Seen in ER at this time no distress, no nausea, vomit or diarrhea, he states he is been having liquid diet but has more dysphagia for solid food will follow Barium swallow and GI specialist consult placed. CBC/BMP: 05/18/17 0429 05/18/17 0429 Significant Findings Laboratory Tests Test 05/17/17 05/17/17 05/18/17 05/18/17 10:05 18:17 04:29 21:00 Chloride Level 110 MEQ/L 109 MEQ/L (98-107) (98-107) Carbon Dioxide Level 18.7 MEQ/L (21.0-32.0) Troponin I LESS THAN 0.02 NG/ML (0.02-0.05) Urine Ketones 10 mg/dL (NEG) Urine Mucus MOD /lpf (OCC) Red Blood Count 4.28 MIL/MM3 (4.50-5.90) Hemoglobin 12.8 GM/DL (13.0-17.0) Hematocrit 37.6 % (39.0-51.0) Lymphocytes (%) (Auto) 48.8 % (9.0-44.0) Calcium Level 8.1 MG/DL (8.5-10.1) [place] Level 0.1 MEQ/L (0.5-1.5) PE at Discharge GENERAL: Well-developed well-nourished. In no acute distress. Appears more comfortable today. SKIN: Warm and dry. No lesions noted. HEENT: Normocephalic. Pupils equal and round. Mucous membranes pink and moist. CARDIOVASCULAR: Regular rate and rhythm. No murmur appreciated. RESPIRATORY: No accessory muscle use. Clear to auscultation. Breath sounds equal bilaterally. GASTROINTESTINAL: Abdomen soft, non-tender, nondistended. Bowel sounds x4. MUSCULOSKELETAL: Right BKA. No clubbing or cyanosis. No edema. NEUROLOGICAL: Awake and alert. No focal neurological deficits. Moves upper and lower extremities spontaneously. Normal speech. PSYCHIATRIC: Appropriate mood and affect; insight and judgment normal. Pt Condition on Discharge: Stable Discharge Disposition: Discharge Home Discharge Instructions DIET: Follow Instructions for: Full Liquid Diet Activities you can perform: Regular-No Restrictions Apple Aleman MD May 19, 2017 13:46
[2017-05-19] MEDS: HEPARIN SODIUM - SQ 10,000 UNITS/ML VIAL SQ SCH ×3 (14:29→23:24)
[2017-05-19 15:17] LABS: PROTHROMBIN TIME - PATIENT 10.8 SEC (9.8-11.6)
[2017-05-19] MEDS: SODIUM CHLORIDE 0.9% FLUSH 10 ML FLUSH IV FLUSH PRN (16:23)
[2017-05-19] MEDS: MUPIROCIN 2% OINT 1 APPLIC/GM SYR EACH NARE SCH (20:37)
[2017-05-19] MEDS: oxyCODONE HCL ORAL CONC 20 MG/ML SYRINGE PO PRN (23:24)
[2017-05-20] VITALS (8 sets, daily range): BP systolic 113–133; BP diastolic 59–77; PULSE 48–69; RESP 16–18; TEMP 97–98.3; O2SAT 94–99
[2017-05-20] MEDS: MORPHINE SULFATE 4 MG/ML INJ IV PUSH PRN ×6 (00:28→23:01)
[2017-05-20] MEDS: HEPARIN SODIUM - SQ 10,000 UNITS/ML VIAL SQ SCH ×3 (06:40→21:02)
[2017-05-20] MEDS: oxyCODONE HCL ORAL CONC 20 MG/ML SYRINGE PO PRN ×4 (06:41→21:09)
[2017-05-20] MEDS: MUPIROCIN 2% OINT 1 APPLIC/GM SYR EACH NARE SCH ×2 (08:01→21:03)
[2017-05-20] MEDS: DOCUSATE SODIUM 50 MG/SENNA 8.6 MG TAB PO SCH ×2 (08:01→21:00)
[2017-05-20] MEDS: PANTOPRAZOLE SODIUM 40 MG VIAL IV PUSH SCH (08:01)
[2017-05-20] MEDS: GABAPENTIN 400 MG CAP PO SCH ×3 (08:01→18:43)
[2017-05-20] MEDS: SODIUM CHLORIDE 0.9% FLUSH 10 ML FLUSH IV FLUSH SCH ×2 (08:04→21:00)
--- NOTE | 2017-05-20 11:16 | HHI.PR ---
Subjective Remarks Follow up dysphagia. Patient laying in bed resting. States he is having some tightening pain in his lower throat area, 6/10, worse with swallowing. He states the pain medications work but only for a short time, not completely controlled. Denies any active chest pain, sob, fever or chills. Objective Vitals Vital Signs Date Time Temp Pulse Resp B/P Pulse Ox O2 Delivery O2 Flow Rate FiO2 05/20/17 08:10 Nasal Cannula 3.00 05/20/17 08:00 97.4 57 18 132/76 94 05/20/17 03:50 97.0 48 16 114/59 95 05/20/17 03:25 51 05/20/17 00:05 Room Air 05/19/17 23:52 97.7 72 16 128/68 95 05/19/17 19:08 98.8 80 18 120/74 96 05/19/17 15:20 98.7 75 18 122/71 94 05/19/17 11:35 98.2 72 18 134/81 97 I/O 05/19/17 05/19/17 05/19/17 05/20/17 05/20/17 05/20/17 06:59 14:59 22:59 06:59 14:59 22:59 Intake Total 900 ml 240 ml Output Total 700 ml 900 ml 950 ml 375 ml Balance 200 ml -900 ml -950 ml -135 ml Intake Oral 240 ml IV Total 900 ml Output Urine Total 700 ml 900 ml 950 ml 375 ml # Voids 2 # Bowel Movements 0 Result Diagram: 05/18/1742805/18/17428 Objective Remarks GENERAL: Well-developed well-nourished in NAD SKIN: Warm and dry. No lesions noted. HEENT: Normocephalic. Pupils equal and round. CARDIOVASCULAR: Regular rate and rhythm. No murmur appreciated. RESPIRATORY: No accessory muscle use. Clear to auscultation. Breath sounds equal bilaterally. GASTROINTESTINAL: Abdomen soft, non-tender, nondistended. Bowel sounds x4. MUSCULOSKELETAL: Right BKA. No clubbing or cyanosis. No edema. NEUROLOGICAL: Awake and alert. No focal neurological deficits. Moves upper and lower extremities spontaneously. Normal speech. PSYCHIATRIC: Appropriate mood and affect; insight and judgment normal. Medications and IVs Current Medications Medications (Trade) Dose Ordered Sig/Dorothy Route Start Time Stop Time Status Last Admin (Buspar) 10 mg TID PO 05/17/17 13:00 05/19/17 18:22 ([place] Carbonate) 300 mg BID PO 05/17/17 21:00 05/19/17 20:37 (NS Flush) 2 ml UNSCH PRN IV FLUSH 05/17/17 12:30 05/19/17 16:23 (NS Flush) 2 ml BID IV FLUSH 05/17/17 21:00 05/20/17 08:04 (Zofran Inj) 4 mg Q6H PRN IVP 05/17/17 12:30 05/19/17 16:22 (Narcan Inj) 0.4 mg UNSCH PRN IV 05/17/17 12:30 ([place]-Colace) 1 tab BID PO 05/17/17 21:00 05/20/17 08:01 (Milk Of Magnesia Liq) 30 ml Q12H PRN PO 05/17/17 12:30 (Senokot) 17.2 mg Q12H PRN PO 05/17/17 12:30 (Dulcolax Supp) 10 mg DAILY PRN RECTAL 05/17/17 12:30 (Lactulose Liq) 30 ml DAILY PRN PO 05/17/17 12:30 (Neurontin) 400 mg TID PO 05/18/17 09:00 05/20/17 08:01 Morphine Sulfate 1 mg 1 mg Q4H PRN IV PUSH 05/18/17 18:00 05/20/17 08:01 (D5-1/2 NS + KCl 20 Meq Inj) 1,000 ml @ 75 mls/hr [id number] IV 05/18/17 16:00 05/19/17 18:43 (Roxicodone Intensol Liq) 5 mg Q6H PRN PO 05/18/17 18:00 05/20/17 06:41 (Ativan) 0.5 mg Q6H PRN PO 05/18/17 18:30 (Protonix Inj) 40 mg Q24H IV PUSH 05/19/17 08:30 05/20/17 08:01 (Bactroban Nasal 2% Oint) 1 applic BID EACH NARE 05/19/17 21:00 05/24/17 20:59 6/23/17 08:01 (Heparin Inj) 5,000 units Q8HR SQ 05/19/17 22:00 05/20/17 06:40 A/P Assessment and Plan 41-year-old male with a past medical history of Hodgkin's lymphoma, bipolar disorder who presented with recurrent dysphagia Dysphagia secondary to paratracheal mass/Known right-sided paratracheal mass with recent admission s/p biopsy/history of Hodgkin's lymphoma Reviewed: Chest x-ray with improving right base atelectasis and persistent prominence of the right paratracheal area. Barium swallow with focal mucosal lesion of the upper cervical esophagus. -GI consulted. Performed EGD but was unable to dilate her biopsy; also mild gastritis with biopsy. Consider PEG placement, Patient agrees to peg after surgery -Cardiothoracic surgery consulted, Dr. Fernandez will do Surgery planned for Thursday 05/24 -Medical oncology consulted. Dr. Herzog, recommended pain control and outpatient PET scan. -Consider palliative care consultation for goals of care if mass is unable to be resected. -Pain control with liquid Oxycodone and IV morphine, increase 05/20 oxycodone to 10mg Q4h prn, and Morphine to Q3Hr -Speech therapy is following, cont diet recommendations per speech Bipolar disorder: Chronic. Continue gabapentin, lithium, BuSpar. DVT prophylaxis: Heparin on hold with procedure. SCDs. Greta Cervantes May 20, 2017 11:16
[2017-05-20] MEDS: busPIRone HCL 10 MG TAB PO SCH ×3 (11:39→18:43)
[2017-05-20] MEDS: D5-1/2 NS + KCL 20 MEQ INJ 1,000 ML IV SCH ×2 (11:39→23:01)
[2017-05-20] MEDS: LITHIUM CARBONATE 300 MG CAP PO SCH ×2 (11:39→21:02)
--- NOTE | 2017-05-20 13:48 | HHI.GIFU ---
Subjective Remarks Resting in bed. Tolerating full liquids. No n/v. Still having odynophagia. States his surgery is scheduled for Tuesday and that he will be staying here until he has his surgery. States that the nurses were in to go over this with him and explained that they would also be placing a PEG tube at that time. ( Tuesday) Objective Vitals I&O Vital Signs Date Time Temp Pulse Resp B/P Pulse Ox O2 Delivery O2 Flow Rate FiO2 05/20/17 12:00 97.8 50 18 133/72 98 05/20/17 11:04 55 05/20/17 08:10 Nasal Cannula 3.00 05/20/17 08:00 97.4 57 18 132/76 94 05/20/17 03:50 97.0 48 16 114/59 95 05/20/17 03:25 51 05/20/17 00:05 Room Air 05/19/17 23:52 97.7 72 16 128/68 95 05/19/17 19:08 98.8 80 18 120/74 96 05/19/17 15:20 98.7 75 18 122/71 94 I/O 05/19/17 05/19/17 05/19/17 05/20/17 05/20/17 05/20/17 07:00 15:00 23:00 07:00 15:00 23:00 Intake Total 900 ml 240 ml Output Total 700 ml 900 ml 950 ml 375 ml Balance 200 ml -900 ml -950 ml -135 ml Intake Oral 240 ml IV Total 900 ml Output Urine Total 700 ml 900 ml 950 ml 375 ml # Voids 2 # Bowel Movements 0 Laboratory Laboratory Tests Test 05/19/17 14:52 Prothrombin Time 10.8 Prothromb Time International 1.0 Ratio Activated Partial 27.0 Thromboplast Time Imaging Last Impressions Chest X-Ray 05/17/17 1012 Signed Impressions: Service Date/Time: Wednesday, May 17, 2017 10:24 - CONCLUSION: 1. Suspected minimal atelectasis or consolidation at the medial right base. This area appears improved from the prior exam. 2. Persistent prominence of the right paratracheal area. This area appears less prominent on the current exam. Fabricio Stokes MD Barium Swallow X-Ray 05/17/17 0000 Signed Impressions: Service Date/Time: Wednesday, May 17, 2017 14:23 - CONCLUSION: Focal mucosal lesion at the upper cervical esophagus. Fabricio Stokes MD Physical Exam HEENT: Normocephalic; atraumatic; no jaundice. CHEST: CTA CARDIAC: RRR ABDOMEN: Soft, nondistended, nontender; no hepatosplenomegaly; bowel sounds are present in all four quadrants. EXTREMITIES: No clubbing, cyanosis, or edema. SKIN: Normal; no rash; no jaundice. DOCTOR OF RADIOLOGY: No focal deficits; alert and oriented times three. Assessment and Plan Plan ASSESSMENT - Dysphagia, odynophagia. Only been able to take liquids since 04/24/17. Has difficulty swallowing liquids as well and c/o odynophagia from mid esophagus to upper esophageal area. Barium Swallow (05/17/17)---> Focal mucosal lesion at the upper cervical esophagus. EGD (05/18/17)-----> Proximal esophageal narrowing from extrinsic lesion pinching the esophagus- unable to biopsy, mild gastritis in stomach, s/p biopsy, normal duodenum. Pathology with gastric antral mucosa without significant histologic abnormality. PPI. Taking full liquids. Will ask PICC line to be placed and consult dietary for tpn recommendations, as he has only been taking liquids since end of March and will be NPO after surgery. - Paratracheal mass. CTA (04/27/17)----> 4.2 x 5.5 cm right paratracheal mass lesion which displaces the trachea leftward, appears isolated. Pathology --> organizing fat necrosis adn hematoma, clinically right paratracheal mass, hematoma and focal foreign body reaction, clinically rith paratracheal mass. CXR (05/17/17)----> 1. Suspected minimal atelectasis or consolidation at the medial right base. This area appears improved from the prior exam. 2. Persistent prominence of the right paratracheal area. This area appears less prominent on the current exam. CVT/Oncology consulted. Pt reports that he was told by CVT that he will undergo surgery on Tuesday and that he will have a PEG tube placed at that time. - Diarrhea. Not currently having. 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 Rivera and myself and this note is written on his behalf Sury Ayala May 20, 2017 13:48
--- NOTE | 2017-05-20 16:11 | RADRPT ---
EXAM DATE/TIME: 05/20/2017 15:37 [facility] COMPARISON: CHEST SINGLE AP, May 17, 2017, 10:24. INDICATIONS : Evaluate for right sided picc line placement. MEDICAL HISTORY : None. SURGICAL HISTORY : None. ENCOUNTER: Subsequent ACUITY: 1 day PAIN SCORE: 0/10 LOCATION: chest FINDINGS: PICC line is in good position. Lungs are clear. The heart and pulmonary vascularity are normal. The portion of the bony skeleton visualized is unremarkable. CONCLUSION: PICC line in good position. Board Certified Radiologist. This report was verified electronically.
[2017-05-20] MEDS ORDERED: SODIUM CHLORIDE 0.9% FLUSH 10 ML FLUSH IV FLUSH PRN (17:00)
[2017-05-21] MEDS: oxyCODONE HCL ORAL CONC 20 MG/ML SYRINGE PO PRN ×4 (01:20→21:04)
[2017-05-21 03:40] VITALS: BP 136/81; PULSE 59; RESP 16; TEMP 98.1; O2SAT 96
[2017-05-21] MEDS: MORPHINE SULFATE 4 MG/ML INJ IV PUSH PRN ×6 (03:59→23:21)
[2017-05-21] MEDS: HEPARIN SODIUM - SQ 10,000 UNITS/ML VIAL SQ SCH ×3 (04:49→21:03)
[2017-05-21 06:35] LABS: AUTOMATED NEUTROPHIL # 2.7 TH/MM3 (1.8-7.7); BASOPHIL # 0.1 TH/MM3 (0-0.2); BASOPHIL % 1.1 % (0.0-2.0); EOSINOPHIL # 0.4 TH/MM3 (0-0.4); EOSINOPHIL % 5.6 % (0.0-4.0); HEMATOCRIT 40.2 % (39.0-51.0); HEMO FLAGS DIFF FINAL; LYMPH % 42.7 % (9.0-44.0); LYMPHOCYTE # 2.8 TH/MM3 (1.0-4.8); MEAN CELL VOLUME 87.5 FL (80.0-100.0); MEAN CORPUSCULAR HEMOGLOBIN 29.5 PG (27.0-34.0); MEAN CORPUSCULAR HGB CONC 33.7 % (32.0-36.0); MONO % 8.6 % (0.0-8.0); PLATELET COUNT 300 TH/MM3 (150-450); RED BLOOD COUNT 4.59 MIL/MM3 (4.50-5.90); RED CELL DISTRIBUTION WIDTH 13.1 % (11.6-17.2); WHITE BLOOD COUNT 6.5 TH/MM3 (4.0-11.0)
[2017-05-21 08:00] VITALS: BP 138/84; PULSE 56; PULSE 75; RESP 18; TEMP 97.9; O2SAT 100
[2017-05-21] MEDS: DOCUSATE SODIUM 50 MG/SENNA 8.6 MG TAB PO SCH ×2 (08:59→21:03)
[2017-05-21] MEDS: busPIRone HCL 10 MG TAB PO SCH ×3 (08:59→17:39)
[2017-05-21] MEDS: GABAPENTIN 400 MG CAP PO SCH ×3 (08:59→17:39)
[2017-05-21] MEDS: LITHIUM CARBONATE 300 MG CAP PO SCH ×2 (08:59→21:03)
[2017-05-21] MEDS: PANTOPRAZOLE SODIUM 40 MG VIAL IV PUSH SCH (08:59)
[2017-05-21] MEDS: SODIUM CHLORIDE 0.9% FLUSH 10 ML FLUSH IV FLUSH SCH ×3 (09:01→21:02)
[2017-05-21] MEDS: ONDANSETRON HCL 4 MG/2 ML VIAL IVP PRN (09:17)
--- NOTE | 2017-05-21 11:20 | HHI.PR ---
Subjective Remarks Follow up for dysphagia, paratracheal mass. The patient reports his pain is better controlled today. He is requesting Ensure shakes with his meals. He reports occasional chest discomfort and shortness of breath. O2 sat stable. Discussed with nurse to wean off oxygen. Objective Vitals Vital Signs Date Time Temp Pulse Resp B/P Pulse Ox O2 Delivery O2 Flow Rate FiO2 05/21/17 08:00 97.9 56 18 138/84 100 05/21/17 03:40 98.1 59 16 136/81 96 05/20/17 23:15 98.0 61 16 129/72 96 05/20/17 20:02 98.2 69 16 113/77 99 05/20/17 16:00 98.3 53 18 131/65 99 05/20/17 12:00 97.8 50 18 133/72 98 I/O 05/20/17 05/20/17 05/20/17 05/21/17 05/21/17 05/21/17 07:00 15:00 23:00 07:00 15:00 23:00 Intake Total 240 ml 960 ml 2195 ml 600 ml Output Total 375 ml 1050 ml 800 ml 625 ml Balance -135 ml -90 ml 1395 ml -25 ml Intake Oral 240 ml 960 ml 1200 ml 600 ml IV Total 995 ml Output Urine Total 375 ml 1050 ml 800 ml 625 ml # Bowel Movements 0 0 0 0 Result Diagram: 05/21/17 0610 05/18/17 0429 Imaging Last Impressions Chest X-Ray 05/20/17 0000 Signed Impressions: Service Date/Time: Saturday, May 20, 2017 15:37 - CONCLUSION: PICC line in good position. Board Certified Radiologist. This report was verified electronically. Barium Swallow X-Ray 05/17/17 0000 Signed Impressions: Service Date/Time: Wednesday, May 17, 2017 14:23 - CONCLUSION: Focal mucosal lesion at the upper cervical esophagus. Fabricio Stokes MD Objective Remarks GENERAL: Well-developed, well-nourished middle aged male patient in [facility]. SKIN: Warm and dry. HEAD: Atraumatic. Normocephalic. EYES: Pupils equal and round. No scleral icterus. No injection or drainage. ENT: No nasal bleeding or discharge. Mucous membranes pink and moist. NECK: Trachea midline. No JVD. CARDIOVASCULAR: Regular rate and rhythm. No murmur appreciated. RESPIRATORY: No accessory muscle use. Clear to auscultation. Breath sounds equal bilaterally. GASTROINTESTINAL: Abdomen soft, non-tender, nondistended. Normoactive bowel sounds x4. MUSCULOSKELETAL: Extremities without clubbing, cyanosis, or edema. No obvious deformities. NEUROLOGICAL: Awake and alert. No obvious cranial nerve deficits. Motor grossly within normal limits. Normal speech. PSYCHIATRIC: Appropriate mood and affect; insight and judgment normal. Medications and IVs Current Medications Medications (Trade) Dose Ordered Sig/Dorothy Route Start Time Stop Time Status Last Admin (Buspar) 10 mg TID PO 05/17/17 13:00 05/21/17 08:59 ([place] Carbonate) 300 mg BID PO 05/17/17 21:00 05/21/17 08:59 (NS Flush) 2 ml UNSCH PRN IV FLUSH 05/17/17 12:30 05/19/17 16:23 (NS Flush) 2 ml BID IV FLUSH 05/17/17 21:00 05/21/17 09:01 (Zofran Inj) 4 mg Q6H PRN IVP 05/17/17 12:30 05/21/17 09:17 (Narcan Inj) 0.4 mg UNSCH PRN IV 05/17/17 12:30 ([place]-Colace) 1 tab BID PO 05/17/17 21:00 05/21/17 08:59 (Milk Of Magnesia Liq) 30 ml Q12H PRN PO 05/17/17 12:30 (Senokot) 17.2 mg Q12H PRN PO 05/17/17 12:30 (Dulcolax Supp) 10 mg DAILY PRN RECTAL 05/17/17 12:30 (Lactulose Liq) 30 ml DAILY PRN PO 05/17/17 12:30 Gabapentin 400 mg 400 mg TID PO 05/18/17 09:00 05/21/17 08:59 (D5-1/2 NS + KCl 20 Meq Inj) 1,000 ml @ 75 mls/hr [id number] IV 05/18/17 16:00 05/20/17 23:01 (Ativan) 0.5 mg Q6H PRN PO 05/18/17 18:30 (Protonix Inj) 40 mg Q24H IV PUSH 05/19/17 08:30 05/21/17 08:59 (Bactroban Nasal 2% Oint) 1 applic BID EACH NARE 05/19/17 21:00 05/24/17 20:59 05/20/17 21:03 (Heparin Inj) 5,000 units Q8HR SQ 05/19/17 22:00 05/21/17 04:49 (Morphine Inj) 1 mg Q3H PRN IV PUSH 05/20/17 13:00 05/21/17 11:06 (Roxicodone Intensol Liq) 10 mg Q4H PRN PO 05/20/17 14:00 05/21/17 09:15 (NS Flush) See Protocol DAILY IV FLUSH 05/21/17 09:00 05/21/17 09:01 (NS Flush) See Protocol UNSCH PRN IV FLUSH 05/20/17 17:00 (Heparin Central Flush) See Protocol DAILY IV FLUSH 05/21/17 09:00 (Heparin Central Flush) See Protocol UNSCH PRN IV FLUSH 05/20/17 17:00 (NS Flush) UNSCH PRN IV FLUSH 05/20/17 17:00 A/P Assessment and Plan 41-year-old male with a past medical history of Hodgkin's lymphoma, bipolar disorder who presented with recurrent dysphagia Dysphagia secondary to paratracheal mass/Known right-sided paratracheal mass with recent admission s/p biopsy/history of Hodgkin's lymphoma Reviewed: Chest x-ray with improving right base atelectasis and persistent prominence of the right paratracheal area. Barium swallow with focal mucosal lesion of the upper cervical esophagus. -GI consulted. Performed EGD but was unable to dilate her biopsy; also mild gastritis with biopsy. Consider PEG placement, Patient agrees to peg after surgery -Cardiothoracic surgery consulted, Dr. Fernandez will do Surgery planned for Thursday 05/24 -Medical oncology consulted. Dr. Herzog, recommended pain control and outpatient PET scan. -Consider palliative care consultation for goals of care if mass is unable to be resected. -Pain control with liquid Oxycodone and IV morphine, 05/20 increased oxycodone to 10mg Q4h prn, and Morphine to Q3Hr -Speech therapy is following, cont diet recommendations per ST, add Ensure to every meal Bipolar disorder: Chronic. Continue gabapentin, lithium, BuSpar. DVT prophylaxis: Heparin on hold with procedure. SCDs. Discuss with RN and Dr. Aleman. Shruthi Verdugo PA-C May 21, 2017 11:20 am
[2017-05-21 12:00] VITALS: BP 122/58; PULSE 61; RESP 18; TEMP 97.8; O2SAT 97
--- NOTE | 2017-05-21 13:36 | HHI.GIFU ---
Subjective Remarks Resting in bed. States he continues to have severe pain when he swallows and is having difficulty taking even liquids because of the pain. There are some Cheezits and Skittles at the bedside, but he states that his was in last night and these are for her. (Sury Ayala) Objective Vitals I&O Vital Signs Date Time Temp Pulse Resp B/P Pulse Ox O2 Delivery O2 Flow Rate FiO2 05/21/17 12:00 97.8 61 18 122/58 97 05/21/17 08:00 97.9 56 18 138/84 100 05/21/17 03:40 98.1 59 16 136/81 96 05/20/17 23:15 98.0 61 16 129/72 96 05/20/17 20:02 98.2 69 16 113/77 99 05/20/17 16:00 98.3 53 18 131/65 99 I/O 05/20/17 05/20/17 05/20/17 05/21/17 05/21/17 05/21/17 07:00 15:00 23:00 07:00 15:00 23:00 Intake Total 240 ml 960 ml 2195 ml 600 ml Output Total 375 ml 1050 ml 800 ml 625 ml Balance -135 ml -90 ml 1395 ml -25 ml Intake Oral 240 ml 960 ml 1200 ml 600 ml IV Total 995 ml Output Urine Total 375 ml 1050 ml 800 ml 625 ml # Bowel Movements 0 0 0 0 Laboratory Laboratory Tests Test 05/21/17 06:10 White Blood Count 6.5 Red Blood Count 4.59 Hemoglobin 13.5 Hematocrit 40.2 Mean Corpuscular Volume 87.5 Mean Corpuscular Hemoglobin 29.5 Mean Corpuscular Hemoglobin 33.7 Concent Red Cell Distribution Width 13.1 Platelet Count 300 Mean Platelet Volume 7.9 Neutrophils (%) (Auto) 42.0 Lymphocytes (%) (Auto) 42.7 Monocytes (%) (Auto) 8.6 Eosinophils (%) (Auto) 5.6 Basophils (%) (Auto) 1.1 Neutrophils # (Auto) 2.7 Lymphocytes # (Auto) 2.8 Monocytes # (Auto) 0.6 Eosinophils # (Auto) 0.4 Basophils # (Auto) 0.1 CBC Comment DIFF FINAL Differential Comment Imaging Last Impressions Chest X-Ray 05/20/17 0000 Signed Impressions: Service Date/Time: Saturday, May 20, 2017 15:37 - CONCLUSION: PICC line in good position. Board Certified Radiologist. This report was verified electronically. Barium Swallow X-Ray 05/17/17 0000 Signed Impressions: Service Date/Time: Wednesday, May 17, 2017 14:23 - CONCLUSION: Focal mucosal lesion at the upper cervical esophagus. Fabricio Stokes MD Physical Exam HEENT: Normocephalic; atraumatic; no jaundice. CHEST: CTA CARDIAC: RRR ABDOMEN: Soft, nondistended, nontender; no hepatosplenomegaly; bowel sounds are present in all four quadrants. EXTREMITIES: No clubbing, cyanosis, or edema. SKIN: Normal; no rash; no jaundice. FINANCIAL MANAGEMENT: No focal deficits; alert and oriented times three. (Sury Ayala) Assessment and Plan Plan ASSESSMENT - Dysphagia, odynophagia. Only been able to take liquids since 04/24/17. Has difficulty swallowing liquids as well and c/o odynophagia from mid esophagus to upper esophageal area. Barium Swallow (05/17/17)---> Focal mucosal lesion at the upper cervical esophagus. EGD (05/18/17)-----> Proximal esophageal narrowing from extrinsic lesion pinching the esophagus- unable to biopsy, mild gastritis in stomach, s/p biopsy, normal duodenum. Pathology with gastric antral mucosa without significant histologic abnormality. PPI. Taking full liquids- but states he is having a hard time getting even liquids down. S/P PICC line. Will start TPN Clinimax E 4.25/25 at 83cc/hr with Lipids 20% at 10cc/hr. - Paratracheal mass. CTA (04/27/17)----> 4.2 x 5.5 cm right paratracheal mass lesion which displaces the trachea leftward, appears isolated. Pathology --> organizing fat necrosis adn hematoma, clinically right paratracheal mass, hematoma and focal foreign body reaction, clinically rith paratracheal mass. CXR (05/17/17)----> 1. Suspected minimal atelectasis or consolidation at the medial right base. This area appears improved from the prior exam. 2. Persistent prominence of the right paratracheal area. This area appears less prominent on the current exam. CVT/Oncology consulted. Pt reports that he was told by CVT that he will undergo surgery on Tuesday and that he will have a PEG tube placed at that time. Start TPN - Diarrhea. Not currently having. 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 Navarrete and myself and this note is written on his behalf (Sury Ayala) Physician Comments Patient was seen and examined, agree with above note and plan, we will FU as needed. thank you for the consult. (Linda Navarrete MD) Sury Ayala May 21, 2017 13:36 Linda Navarrete MD May 21, 2017 17:34
[2017-05-21 16:00] VITALS: BP 153/63; PULSE 79; RESP 18; TEMP 98.1; O2SAT 99
[2017-05-21 20:00] VITALS: BP 118/84; PULSE 72; RESP 22; TEMP 98.2; O2SAT 98
[2017-05-21] MEDS: FAT EMULSION 20% INJ 250 ML (@10 mls/hr) IV SCH (21:01)
[2017-05-21] MEDS: CLINIMIX E 4.25/5 2000 mL- >42 mls/hr IV SCH ×3 (21:01)
[2017-05-21] MEDS: MUPIROCIN 2% OINT 1 APPLIC/GM SYR EACH NARE SCH (21:02)
[2017-05-21] MEDS: SODIUM CHLORIDE 0.9% FLUSH 10 ML FLUSH IV FLUSH PRN (21:03)
[2017-05-22] VITALS (7 sets, daily range): BP systolic 122–147; BP diastolic 65–85; PULSE 59–77; RESP 18–20; TEMP 96.8–98.5; O2SAT 96–100
[2017-05-22] MEDS: oxyCODONE HCL ORAL CONC 20 MG/ML SYRINGE PO PRN ×3 (02:00→20:41)
[2017-05-22] MEDS: SODIUM CHLORIDE 0.9% FLUSH 10 ML FLUSH IV FLUSH PRN ×2 (04:29→22:45)
[2017-05-22] MEDS: MORPHINE SULFATE 4 MG/ML INJ IV PUSH PRN ×5 (04:29→22:44)
[2017-05-22] MEDS: HEPARIN SODIUM - SQ 10,000 UNITS/ML VIAL SQ SCH ×3 (05:45→22:45)
[2017-05-22] MEDS: DOCUSATE SODIUM 50 MG/SENNA 8.6 MG TAB PO SCH ×2 (09:00→20:45)
[2017-05-22] MEDS: SODIUM CHLORIDE 0.9% FLUSH 10 ML FLUSH IV FLUSH SCH ×3 (09:00→20:44)
[2017-05-22] MEDS: GABAPENTIN 400 MG CAP PO SCH ×3 (09:03→18:18)
[2017-05-22] MEDS: busPIRone HCL 10 MG TAB PO SCH ×3 (09:03→18:18)
[2017-05-22] MEDS: MUPIROCIN 2% OINT 1 APPLIC/GM SYR EACH NARE SCH ×2 (09:03→20:44)
[2017-05-22] MEDS: LITHIUM CARBONATE 300 MG CAP PO SCH ×2 (09:04→20:43)
[2017-05-22] MEDS: PANTOPRAZOLE SODIUM 40 MG VIAL IV PUSH SCH (09:05)
--- NOTE | 2017-05-22 12:39 | HHI.PR ---
Subjective Remarks Follow up for dysphagia, paratracheal mass. The patient reports continued constant chest discomfort that is tolerable with pain medications. He is happy to have Ensure added to his meals, states he's drank 6 Ensure shakes since yesterday. Denies any shortness of breath, however deep inspiration limited secondary to chest pain. Denies cough, fevers/chills. He has no other medical complaints at this time. Objective Vitals Vital Signs Date Time Temp Pulse Resp B/P Pulse Ox O2 Delivery O2 Flow Rate FiO2 05/22/17 12:00 98.5 71 18 133/65 100 05/22/17 08:00 96.9 68 18 127/75 98 05/22/17 06:00 97.8 60 20 122/76 98 05/22/17 00:00 97.9 61 20 129/78 98 05/21/17 21:45 Nasal Cannula 3.00 05/21/17 20:00 98.2 72 22 118/84 98 05/21/17 16:00 98.1 79 18 153/63 99 I/O 05/21/17 05/21/17 05/21/17 05/22/17 05/22/17 05/22/17 07:00 15:00 23:00 07:00 15:00 23:00 Intake Total 600 ml 2000 ml Output Total 625 ml 1400 ml 300 ml 1025 ml Balance -25 ml 600 ml -300 ml -1025 ml Intake Oral 600 ml 2000 ml Output Urine Total 625 ml 1400 ml 300 ml 1025 ml # Bowel Movements 0 0 0 Result Diagram: 05/21/17 0610 05/18/17 0429 Imaging Last Impressions Chest X-Ray 05/20/17 0000 Signed Impressions: Service Date/Time: Saturday, May 20, 2017 15:37 - CONCLUSION: PICC line in good position. Board Certified Radiologist. This report was verified electronically. Barium Swallow X-Ray 05/17/17 0000 Signed Impressions: Service Date/Time: Wednesday, May 17, 2017 14:23 - CONCLUSION: Focal mucosal lesion at the upper cervical esophagus. Fabricio Stokes MD Objective Remarks GENERAL: Well-developed, well-nourished middle aged male patient in [facility]. SKIN: Warm and dry. HEENT: Atraumatic. Normocephalic. Pupils equal and round. Mucous membranes pink and moist. NECK: Trachea midline. CARDIOVASCULAR: Regular rate and rhythm. No murmur appreciated. RESPIRATORY: No accessory muscle use. Clear to auscultation. Breath sounds equal bilaterally. GASTROINTESTINAL: Abdomen soft, non-tender, nondistended. Normoactive bowel sounds x4. MUSCULOSKELETAL: Extremities without clubbing, cyanosis, or edema. No obvious deformities. NEUROLOGICAL: Awake and alert. No obvious cranial nerve deficits. Motor grossly within normal limits. Normal speech. PSYCHIATRIC: Appropriate mood and affect; insight and judgment normal. Medications and IVs Current Medications Medications (Trade) Dose Ordered Sig/Dorothy Route Start Time Stop Time Status Last Admin (Buspar) 10 mg TID PO 05/17/17 13:00 05/22/17 12:18 ([place]ampian Carbonate) 300 mg BID PO 05/17/17 21:00 05/22/17 09:04 (NS Flush) 2 ml UNSCH PRN IV FLUSH 05/17/17 12:30 05/22/17 04:29 (NS Flush) 2 ml BID IV FLUSH 05/17/17 21:00 05/22/17 09:04 (Zofran Inj) 4 mg Q6H PRN IVP 05/17/17 12:30 05/21/17 09:17 (Narcan Inj) 0.4 mg UNSCH PRN IV 05/17/17 12:30 ([place]-Colace) 1 tab BID PO 05/17/17 21:00 05/21/17 21:03 (Milk Of Magnesia Liq) 30 ml Q12H PRN PO 05/17/17 12:30 (Senokot) 17.2 mg Q12H PRN PO 05/17/17 12:30 (Dulcolax Supp) 10 mg DAILY PRN RECTAL 05/17/17 12:30 (Lactulose Liq) 30 ml DAILY PRN PO 05/17/17 12:30 (Neurontin) 400 mg TID PO 05/18/17 09:00 05/22/17 12:18 (Ativan) 0.5 mg Q6H PRN PO 05/18/17 18:30 (Protonix Inj) 40 mg Q24H IV PUSH 05/19/17 08:30 05/22/17 09:05 (Bactroban Nasal 2% Oint) 1 applic BID EACH NARE 05/19/17 21:00 05/24/17 20:59 05/22/17 09:03 (Heparin Inj) 5,000 units Q8HR SQ 05/19/17 22:00 05/22/17 05:45 (Morphine Inj) 1 mg Q3H PRN IV PUSH 05/20/17 13:00 05/22/17 09:10 (Roxicodone Intensol Liq) 10 mg Q4H PRN PO 05/20/17 14:00 05/22/17 06:12 (NS Flush) See Protocol DAILY IV FLUSH 05/21/17 09:00 05/21/17 09:01 (NS Flush) See Protocol UNSCH PRN IV FLUSH 05/20/17 17:00 (Heparin Central Flush) See Protocol DAILY IV FLUSH 05/21/17 09:00 05/21/17 17:44 (Heparin Central Flush) See Protocol UNSCH PRN IV FLUSH 05/20/17 17:00 Sodium Chloride UNSCH PRN IV FLUSH 05/20/17 17:00 Multivitamins 10 ml/Folic Acid 1 mg/Amino Acids/ Electrolytes/ Dextrose 2,010.2 ml @ 83 mls/hr Q24H IV 05/21/17 20:00 05/21/17 21:01 (Liposyn Iii 20% Inj) 250 ml @ 10 mls/hr Q24H IV 05/21/17 20:00 05/21/17 21:01 A/P Assessment and Plan 41-year-old male with a past medical history of Hodgkin's lymphoma, bipolar disorder who presented with recurrent dysphagia Dysphagia secondary to paratracheal mass/Known right-sided paratracheal mass with recent admission s/p biopsy/history of Hodgkin's lymphoma Reviewed: Chest x-ray with improving right base atelectasis and persistent prominence of the right paratracheal area. Barium swallow with focal mucosal lesion of the upper cervical esophagus. -GI consulted. Performed EGD but was unable to dilate her biopsy; also mild gastritis with biopsy. Consider PEG placement, Patient agrees to peg after surgery -Cardiothoracic surgery consulted, Dr. Fernandez will do Surgery planned for Thursday 05/24 -Medical oncology consulted. Dr. Herzog, recommended pain control and outpatient PET scan. -Consider palliative care consultation for goals of care if mass is unable to be resected. -Pain control with liquid oxycodone 10mg Q4h prn, and IV Morphine 1mg q3h prn -Speech therapy is following, cont diet recommendations per ST, added Ensure to every meal Bipolar disorder: Chronic. Continue gabapentin, lithium, BuSpar. DVT prophylaxis: Continue Heparin sq for now, hold at 10pm night prior to procedure. SCDs. Discuss with RN and Dr. Aleman. Shruthi Verdugo PA-C May 22, 2017 12:39 pm
[2017-05-22] MEDS: FAT EMULSION 20% INJ 250 ML (@10 mls/hr) IV SCH (20:44)
[2017-05-22] MEDS: CLINIMIX E 4.25/5 2000 mL- >42 mls/hr IV SCH ×3 (20:44)
[2017-05-23] VITALS (8 sets, daily range): BP systolic 123–136; BP diastolic 65–80; PULSE 66–81; RESP 18–20; TEMP 97.7–98.7; O2SAT 93–98
[2017-05-23] MEDS: oxyCODONE HCL ORAL CONC 20 MG/ML SYRINGE PO PRN ×2 (01:21→06:35)
[2017-05-23] MEDS: MORPHINE SULFATE 4 MG/ML INJ IV PUSH PRN ×5 (05:46→21:32)
[2017-05-23] MEDS: HEPARIN SODIUM - SQ 10,000 UNITS/ML VIAL SQ SCH ×2 (06:10→12:58)
[2017-05-23] MEDS: MUPIROCIN 2% OINT 1 APPLIC/GM SYR EACH NARE SCH ×2 (08:51→21:33)
[2017-05-23] MEDS: LITHIUM CARBONATE 300 MG CAP PO SCH ×2 (08:51→21:30)
[2017-05-23] MEDS: DOCUSATE SODIUM 50 MG/SENNA 8.6 MG TAB PO SCH ×2 (08:51→21:00)
[2017-05-23] MEDS: SODIUM CHLORIDE 0.9% FLUSH 10 ML FLUSH IV FLUSH SCH ×3 (08:51→21:33)
[2017-05-23] MEDS: PANTOPRAZOLE SODIUM 40 MG VIAL IV PUSH SCH (08:51)
[2017-05-23] MEDS: busPIRone HCL 10 MG TAB PO SCH ×3 (08:51→17:25)
[2017-05-23] MEDS: GABAPENTIN 400 MG CAP PO SCH ×3 (08:51→17:24)
--- NOTE | 2017-05-23 10:36 | HHI.PR ---
Subjective Remarks Surgery pending for tomorrow morning. Patient complains of anxiety. He also complains of dizziness with Roxicodone. He will be nothing by mouth after midnight. Objective Vital Signs Date Time Temp Pulse Resp B/P Pulse Ox O2 Delivery O2 Flow Rate FiO2 05/23/17 08:00 97.8 71 20 126/68 97 05/23/17 04:00 98.7 74 18 132/80 95 05/23/17 00:00 98.2 78 18 136/80 97 05/22/17 20:08 Room Air 05/22/17 20:00 74 05/22/17 20:00 97.9 77 18 129/72 97 05/22/17 16:00 96.8 70 18 147/85 96 05/22/17 12:51 59 97 05/22/17 12:00 98.5 71 18 133/65 100 I/O 05/22/17 05/22/17 05/22/17 05/23/17 05/23/17 05/23/17 07:00 15:00 23:00 07:00 15:00 23:00 Intake Total 480 ml 240 ml 2335 ml Output Total 1025 ml 1850 ml 1400 ml 350 ml Balance -1025 ml -1370 ml -1160 ml 1985 ml Intake Oral 480 ml 240 ml IV Total 2335 ml Output Urine Total 1025 ml 1850 ml 1400 ml 350 ml # Bowel Movements 0 0 1 Result Diagram: 05/21/17 0610 Objective Remarks GENERAL: NAD, A&Ox3 HEAD: Normocephalic. NECK: Supple, trachea midline. No lymphadenopathy. EYES: No scleral icterus. No injection or drainage. CARDIOVASCULAR: Regular rate and rhythm without murmurs, gallops, or rubs. RESPIRATORY: Breath sounds equal bilaterally. No accessory muscle use. GASTROINTESTINAL: Abdomen soft, non-tender, nondistended. MUSCULOSKELETAL: No cyanosis, or edema. Right BKA SKIN: Warm and dry. NEURO: No focal neurological deficitis. A/P Problem List: (1) Bipolar 1 disorder ICD Code: F31.9 (2) History of Hodgkin's lymphoma ICD Code: Z85.71 (3) Peritracheal mass ICD Code: R22.2 (4) S/P BKA (below knee amputation) ICD Code: Z89.519 Assessment and Plan Assessment and Plan 41-year-old male with a past medical history of Hodgkin's lymphoma, bipolar disorder admitted with dysphagia, possible recurrence of Hodgkin's lymphoma. Dysphagia Surgery in a.m. Potential for recurrence of Hodgkin's lymphoma as needed etiology for his dysphasia When necessary morphine for pain control Nothing by mouth at midnight Oncology following GI following As needed anxiety treatment started Hold heparin for surgery Bipolar disorder Continue gabapentin, lithium, BuSpar. DVT prophylaxis Continue Heparin Hold heparin tonight for surgery in AM Vahid Castro MD May 23, 2017 10:36
[2017-05-23] MEDS: ALPRAZolam 0.25 MG TAB PO PRN ×2 (16:01→21:30)
[2017-05-23] MEDS: FAT EMULSION 20% INJ 250 ML (@10 mls/hr) IV SCH (21:29)
[2017-05-23] MEDS: CLINIMIX E 4.25/5 2000 mL- >42 mls/hr IV SCH ×3 (21:30)
[2017-05-24] VITALS: BP 109/67; PULSE 76; RESP 16; TEMP 97.6; O2SAT 97
[2017-05-24] MEDS: MORPHINE SULFATE 4 MG/ML INJ IV PUSH PRN ×2 (02:57→06:50)
[2017-05-24] MEDS: ALPRAZolam 0.25 MG TAB PO PRN ×2 (02:57→20:46)
[2017-05-24 04:00] VITALS: BP 117/82; PULSE 88; RESP 16; TEMP 97.3; O2SAT 98
[2017-05-24] MEDS ORDERED: CHLORHEXIDINE GLUCONATE 2 % 1 PACK (2 CLOTHS) TOPICAL PRN (06:45)
[2017-05-24] MEDS ORDERED: LACTATED RINGER'S 1000 ML IV PRN (06:45)
[2017-05-24] MEDS ORDERED: POVIDONE IODINE 5% (ANTISEPSIS KIT) 4 APPLICATIONS EACH NARE PRN (06:45)
[2017-05-24] MEDS ORDERED: INSULIN HUMAN REGULAR 1,000 UNITS/10 ML VIAL SQ PRN (06:45)
[2017-05-24] MEDS ORDERED: SODIUM CHLORID 0.9% 500 ML IV PRN (06:45)
[2017-05-24] MEDS ORDERED: METOPROLOL TARTRATE 25 MG TAB PO PRN (06:45)
[2017-05-24] MEDS: SODIUM CHLORIDE 0.9% FLUSH 10 ML FLUSH IV FLUSH PRN (06:50)
[2017-05-24 07:12] LABS: HEMATOCRIT 47.2 % (39.0-51.0); MEAN CELL VOLUME 87.3 FL (80.0-100.0); MEAN CORPUSCULAR HEMOGLOBIN 29.8 PG (27.0-34.0); MEAN CORPUSCULAR HGB CONC 34.1 % (32.0-36.0); PLATELET COUNT 268 TH/MM3 (150-450); RED CELL DISTRIBUTION WIDTH 13.6 % (11.6-17.2); REVIEW FLAG FINAL; WHITE BLOOD COUNT 8.1 TH/MM3 (4.0-11.0)
[2017-05-24 07:26] LABS: BICARBONATE 31.7 MEQ/L (21.0-32.0); POTASSIUM 4.1 MEQ/L (3.5-5.1)
[2017-05-24 08:00] VITALS: BP 117/71; PULSE 79; PULSE 93; RESP 18; TEMP 97.6; O2SAT 94
[2017-05-24] MEDS: PANTOPRAZOLE SODIUM 40 MG VIAL IV PUSH SCH (08:35)
[2017-05-24] MEDS: GABAPENTIN 400 MG CAP PO SCH ×3 (08:36→18:00)
[2017-05-24] MEDS: DOCUSATE SODIUM 50 MG/SENNA 8.6 MG TAB PO SCH (08:36)
[2017-05-24] MEDS: LITHIUM CARBONATE 300 MG CAP PO SCH ×2 (08:36→20:46)
[2017-05-24] MEDS: MUPIROCIN 2% OINT 1 APPLIC/GM SYR EACH NARE SCH (08:36)
[2017-05-24] MEDS: SODIUM CHLORIDE 0.9% FLUSH 10 ML FLUSH IV FLUSH SCH ×3 (08:36→16:45)
[2017-05-24] MEDS: busPIRone HCL 10 MG TAB PO SCH ×3 (08:36→18:00)
[2017-05-24] MEDS ORDERED: MIDAZOLAM HCL 2 MG/2 ML VIAL ONE ×2 (10:51→14:31)
[2017-05-24] MEDS ORDERED: ACETAMINOPHEN 1000 MG/100 ML VIAL IV ONE (10:51)
[2017-05-24] MEDS ORDERED: FAMOTIDINE 20 MG/2 ML VIAL ONE (10:52)
[2017-05-24] MEDS ORDERED: BUPIVACAINE LIPOSO PF 1.3% INJ 20 ML, DEXAMETHASONE INJ 4 MG, MORPHINE INJ 10 MG in SOD... P-ARTICULR SCH (11:00)
[2017-05-24] MEDS ORDERED: NEOSTIGMINE 3 MG/3 ML SYR IV ONE (12:00)
[2017-05-24] MEDS ORDERED: LACTATED RINGER'S 1000 ML INJ 1,000 ML IV ONE (12:00)
[2017-05-24] MEDS ORDERED: SODIUM CHLORID 0.9% 500 ML INJ 500 ML IV ONE (12:00)
[2017-05-24] MEDS ORDERED: ONDANSETRON HCL 4 MG/2 ML VIAL IV PUSH ONE (12:00)
[2017-05-24] MEDS ORDERED: PHENYLEPH/NS 1000 MCG/10 ML SYR IV ONE (12:00)
[2017-05-24] MEDS ORDERED: SODIUM CHLOR 0.9% 250 ML INJ 250 ML IV ONE (12:00)
[2017-05-24] MEDS ORDERED: NORMOSOL R INJ 1,000 ML IV ONE (12:00)
[2017-05-24] MEDS ORDERED: PROPOFOL 200 MG/20 ML AMP IV ONE (12:00)
[2017-05-24] MEDS ORDERED: ceFAZolin INJ 1,000 MG VIAL ONE (12:54)
[2017-05-24] MEDS ORDERED: SUGAMMADEX SODIUM 200 MG/2 ML VIAL IV PUSH ONE ×2 (13:04)
[2017-05-24] MEDS ORDERED: MAGNESIUM HYDROXIDE SUSP 30 ML CUP PO PRN (13:45)
[2017-05-24] MEDS ORDERED: SODIUM CHLORIDE 0.9% FLUSH 5 ML FLUSH IV FLUSH PRN (13:45)
[2017-05-24] MEDS ORDERED: ONDANSETRON HCL 4 MG/2 ML VIAL IV PUSH PRN (13:45)
[2017-05-24] MEDS ORDERED: NALOXONE HCL 0.4 MG/ML AMP IV PRN (13:45)
[2017-05-24] MEDS ORDERED: Post-op Orders (for Pharmacy) MISC OTHER ONE (13:45)
[2017-05-24] MEDS ORDERED: ACETAMINOPHEN 325 MG TAB PO PRN (13:45)
[2017-05-24] MEDS ORDERED: oxyCODONE/ACETAMINOPHEN 5 MG/325 MG TAB PO PRN (13:45)
[2017-05-24] MEDS ORDERED: RESP: ALBUTEROL 2.5 MG/3 ML NEB (PRN) NEB (13:45)
--- NOTE | 2017-05-24 14:19 | PD.OP ---
cc: Veronica Herzog MD; Pati Fernandez MD Operative Report Date of Surgery: May 24, 2017 Preoperative Diagnosis: Postoperative Diagnosis: Procedure: 1. Right Posterolateral Muscle Sparing Thoracotomy 2. Resection of Paratracheal Mass 3. Intercostal Nerve Block . Surgeon: Pati Fernandez Brine Supervisor(s): Adrianne Fernandes Operation and Findings: PREOPERATIVE DIAGNOSIS 1. Right Paratracheal/Mediastinal Mass 2. H/O Lymphoma 3. COPD 4. Dysphagia POSTOPERATIVE DIAGNOSIS same PROCEDURES 1. Right Posterolateral Muscle Sparing Thoracotomy 2. Resection of Paratracheal Mass 3. Intercostal Nerve Block SURGEON Pati Fernandez MD CABIN CREW NICK Knight ANESTHESIA General endotracheal. BOOM TRUCK DRIVER THALIA Carvalho MD OPERATIVE TIME Please see record. COMPLICATIONS None. INDICATION FOR PROCEDURE The patient is a 42 yo gentleman with right paratracheal mass s/p mediastinoscopy with biopsy of the mass, presenting for surgical resection of above pathology. DESCRIPTION OF PROCEDURE The patient was brought to the operating suite and placed in supine position. Following satisfactory induction of general double-lumen endotracheal anesthesia , the patient was placed in the left lateral decubitus position. The right chest and surrounding area was then prepped and draped in the usual sterile fashion. A standard muscle-sparing posterolateral thoracotomy was performed and the serratus anterior muscle spared. The pleural space was entered. The pleural overlying the right paratracheal region was incised. Exploration of the chest revealed a right mediastinal mass that was densely adherent to the trachea medially and posteriorly, Superior Vena Cava anteriorly, and the Azygos vein inferiorly. The mass was dissected free of the SVC and carved off the trachea with careful blunt and sharp dissection. Of note, it was densely adherent to the trachea with no identifiable plane between the two and had to be shaved off the wall of the trachea. No esophageal invasion or impingement was noted. The mass was sent for histological analysis. Strict hemostasis was assured. A 28- [place] chest tube was placed. Intercostal nerve block was performed at the level of the incision and 3 rib spaces above and below using Exparel with Decadron solution. The pericostal space was approximated with interrupted #1 Vicryl sutures in a pericostal fashion. The serratus fascia and Latissimus dorsi were closed with running 0-Vicryl and the remaining wounds closed with 3-0 , and 4-0 Monocryl. The patient tolerated the procedure well and postoperatively went to the PACU in stable condition. Pati Fernandez MD May 24, 2017 14:19
[2017-05-24] MEDS ORDERED: MORPHINE SULFATE 4 MG/ML INJ ONE (14:31)
[2017-05-24] MEDS ORDERED: fentaNYL CITRATE 250 MCG/5 ML AMP ONE (14:31)
[2017-05-24] MEDS: KETOROLAC TROMETHAMINE 30 MG/ML (IVP) VIAL IV PUSH SCH ×2 (15:00→20:45)
[2017-05-24] MEDS ORDERED: *morphine SULFATE 8 MG/ML PERIprocedure ONLY ONE (15:10)
--- NOTE | 2017-05-24 15:23 | HHI.PR ---
Subjective Remarks Surgery completed today. Seen post op. Pain controlled when seen. Chest tube placed during surgery. Objective Vital Signs Date Time Temp Pulse Resp B/P Pulse Ox O2 Delivery O2 Flow Rate FiO2 05/24/17 08:00 97.6 93 18 117/71 94 05/24/17 08:00 79 05/24/17 07:15 Room Air 3.00 05/24/17 04:00 97.3 88 16 117/82 98 05/24/17 00:00 97.6 76 16 109/67 97 05/24/17 00:00 Room Air 05/23/17 20:00 98.0 77 18 128/78 98 05/23/17 20:00 Room Air 05/23/17 19:53 81 05/23/17 17:32 20 05/23/17 16:00 97.7 74 20 124/75 95 I/O 05/23/17 05/23/17 05/23/17 05/24/17 05/24/17 05/24/17 07:00 15:00 23:00 07:00 15:00 23:00 Intake Total 2335 ml 460 ml 1200 ml 240 ml Output Total 350 ml 1350 ml 800 ml 250 ml Balance 1985 ml -890 ml 1200 ml -560 ml -250 ml Intake Oral 460 ml 1200 ml 240 ml IV Total 2335 ml Output Urine Total 350 ml 1350 ml 800 ml 250 ml # Voids 2 # Bowel Movements 0 1 0 Result Diagram: 05/24/1742 05/24/17 0642 Objective Remarks GENERAL: NAD, A&Ox3 HEAD: Normocephalic. NECK: Supple, trachea midline. No lymphadenopathy. EYES: No scleral icterus. No injection or drainage. CARDIOVASCULAR: Regular rate and rhythm without murmurs, gallops, or rubs. RESPIRATORY: Breath sounds equal bilaterally. No accessory muscle use. GASTROINTESTINAL: Abdomen soft, non-tender, nondistended. MUSCULOSKELETAL: No cyanosis, or edema. Right BKA SKIN: Warm and dry. NEURO: No focal neurological deficitis. A/P Problem List: (1) Bipolar 1 disorder ICD Code: F31.9 (2) History of Hodgkin's lymphoma ICD Code: Z85.71 (3) Peritracheal mass ICD Code: R22.2 (4) S/P BKA (below knee amputation) ICD Code: Z89.519 Assessment and Plan Assessment and Plan 41-year-old male with a past medical history of Hodgkin's lymphoma, bipolar disorder admitted with dysphagia. Removal of mass today, now post op. VETERINARIAN in place for pain control. Dysphagia Surgery completed Potential for recurrence of Hodgkin's lymphoma as needed etiology for his dysphasia When necessary morphine for pain control Oncology following GI following Holding heparin for surgery Bipolar disorder Continue gabapentin, lithium, BuSpar. DVT prophylaxis Continue Heparin Hold heparin tonight for surgery in AM Vahid Castro MD May 24, 2017 15:23
[2017-05-24] MEDS: MORPHINE SULFATE 30 MG/30 ML PCA IV SCH ×2 (15:27→21:50)
--- NOTE | 2017-05-24 15:59 | RADRPT ---
EXAM DATE/TIME: 05/24/2017 15:03 [place] COMPARISON: CHEST SINGLE AP, May 20, 2017, 15:37. INDICATIONS : Post thoracotomy. MEDICAL HISTORY : None. SURGICAL HISTORY : None. ENCOUNTER: Initial ACUITY: 1 day PAIN SCORE: Non-responsive. LOCATION: Bilateral chest FINDINGS: There is a stable right PICC line. There has been interval placement of right-sided chest tube with t ip near the apex. Trace subcutaneous emphysema. No significant pneumothorax. Cardiothymic contours ar e within normal limits. Remainder of exam is unchanged. CONCLUSION: 1. Right apical chest tube in good position without significant pneumothorax. Vj Montero MD on May 24, 2017 at 15:55 Board Certified Radiologist. This report was verified electronically.
[2017-05-24 16:00] VITALS: BP 134/72; PULSE 83; RESP 18; TEMP 97.8; O2SAT 98
[2017-05-24] MEDS: ACETAMINOPHEN 1000 MG/100 ML VIAL IV SCH ×2 (16:58→21:38)
[2017-05-24] MEDS: RESP: ALBUTEROL 2.5 MG/3 ML NEB (SCH) NEB ×2 (17:09→21:09)
[2017-05-24 20:00] VITALS: BP 136/71; PULSE 75; PULSE 84; RESP 18; TEMP 97.8; O2SAT 96; O2SAT 98
[2017-05-24] MEDS: CLINIMIX E 4.25/5 2000 mL- >42 mls/hr IV SCH ×3 (20:43)
[2017-05-24] MEDS: FAT EMULSION 20% INJ 250 ML (@10 mls/hr) IV SCH (20:44)
[2017-05-24] MEDS: PANTOPRAZOLE SOD 40 MG DELAYED RELEASE TAB PO SCH (20:45)
[2017-05-24] MEDS: SODIUM CHLORIDE 0.9% FLUSH 5 ML FLUSH IV FLUSH SCH (20:46)
[2017-05-24] MEDS: DOCUSATE CALCIUM 240 MG CAP PO SCH (20:46)
[2017-05-24] MEDS: oxyCODONE/ACETAMINOPHEN 5 MG/325 MG TAB PO PRN (21:36)
[2017-05-24] MEDS: PCA - TOTAL MG MORPHINE DELIVERED PER SHIFT SCH (22:00)
[2017-05-25] VITALS (9 sets, daily range): BP systolic 100–129; BP diastolic 59–75; PULSE 70–90; RESP 16–20; TEMP 97.3–98.1; O2SAT 94–99
[2017-05-25] MEDS: oxyCODONE/ACETAMINOPHEN 5 MG/325 MG TAB PO PRN (02:41)
[2017-05-25] MEDS: KETOROLAC TROMETHAMINE 30 MG/ML (IVP) VIAL IV PUSH SCH ×2 (02:41→09:39)
[2017-05-25] MEDS: ALPRAZolam 0.25 MG TAB PO PRN ×5 (03:35→21:42)
[2017-05-25] MEDS: RESP: ALBUTEROL 2.5 MG/3 ML NEB (SCH) NEB ×4 (03:48→21:06)
[2017-05-25] MEDS: ACETAMINOPHEN 1000 MG/100 ML VIAL IV SCH ×2 (04:14→11:42)
[2017-05-25] MEDS: PCA - TOTAL MG MORPHINE DELIVERED PER SHIFT SCH ×3 (06:00→21:52)
[2017-05-25 07:15] LABS: AUTOMATED NEUTROPHIL # 9.9 TH/MM3 (1.8-7.7); BASOPHIL % 0.2 % (0.0-2.0); EOSINOPHIL % 0.2 % (0.0-4.0); HEMO FLAGS DIFF FINAL; LYMPH % 11.5 % (9.0-44.0); LYMPHOCYTE # 1.5 TH/MM3 (1.0-4.8); MEAN CORPUSCULAR HEMOGLOBIN 28.9 PG (27.0-34.0); MEAN CORPUSCULAR HGB CONC 32.9 % (32.0-36.0); MONO % 11.6 % (0.0-8.0); NEUT % 76.5 % (16.0-70.0); PLATELET COUNT 202 TH/MM3 (150-450); RED BLOOD COUNT 4.66 MIL/MM3 (4.50-5.90); RED CELL DISTRIBUTION WIDTH 13.3 % (11.6-17.2); WHITE BLOOD COUNT 12.9 TH/MM3 (4.0-11.0)
[2017-05-25 07:50] LABS: BICARBONATE 26.5 MEQ/L (21.0-32.0); POTASSIUM 3.8 MEQ/L (3.5-5.1)
[2017-05-25] MEDS: SODIUM CHLORIDE 0.9% FLUSH 5 ML FLUSH IV FLUSH SCH ×2 (09:00→21:43)
[2017-05-25] MEDS: busPIRone HCL 10 MG TAB PO SCH ×3 (09:38→17:47)
[2017-05-25] MEDS: LITHIUM CARBONATE 300 MG CAP PO SCH ×2 (09:38→21:42)
[2017-05-25] MEDS: GABAPENTIN 400 MG CAP PO SCH ×3 (09:38→17:47)
[2017-05-25] MEDS: MORPHINE SULFATE 30 MG/30 ML PCA IV SCH ×2 (09:38→21:44)
--- NOTE | 2017-05-25 13:59 | HHI.PR ---
Subjective Remarks Patient's only complaint today is pain. PC is not quite controlling his pain. He is tolerating by mouth intake and no longer has dysphagia symptoms. Objective Vital Signs Date Time Temp Pulse Resp B/P Pulse Ox O2 Delivery O2 Flow Rate FiO2 05/25/17 13:30 20 05/25/17 12:00 98.1 82 18 124/69 96 05/25/17 09:38 20 05/25/17 08:00 Room Air 05/25/17 08:00 98.1 78 18 117/66 97 05/25/17 04:00 97.3 84 16 100/59 98 05/25/17 00:00 97.8 70 16 113/62 99 05/24/17 22:00 20 05/24/17 21:55 20 05/24/17 21:50 20 05/24/17 20:00 97.8 75 18 136/71 96 05/24/17 20:00 Nasal Cannula 2.00 05/24/17 20:00 98 Nasal Cannula 2.00 05/24/17 16:00 97.8 83 18 134/72 98 05/24/17 15:45 98.7 73 16 123/78 99 Nasal Cannula 3 05/24/17 15:27 15 05/24/17 15:15 73 15 133/93 99 Nasal Cannula 3 05/24/17 15:00 80 17 137/96 99 Nasal Cannula 3 05/24/17 14:45 78 16 137/96 99 Nasal Cannula 3 05/24/17 14:30 75 16 143/86 100 Nasal Cannula 3 05/24/17 14:15 97.6 85 14 161/94 100 Nasal Cannula 3 I/O 05/24/17 05/24/17 05/24/17 05/25/17 05/25/17 05/25/17 07:00 15:00 23:00 07:00 15:00 23:00 Intake Total 240 ml 2000 ml 390 ml 600 ml Output Total 800 ml 1350 ml 280 ml 825 ml Balance -560 ml 650 ml 110 ml -225 ml Intake Oral 240 ml 0 ml 360 ml 600 ml IV Total 30 ml Other 2000 ml Output Urine Total 800 ml 1150 ml 250 ml 825 ml Chest Tube Drainage Total 30 ml 0 ml Estimated Blood Loss 200 ml # Voids 1 # Bowel Movements 0 0 0 0 Result Diagram: 05/25/1737 05/25/17636 Objective Remarks GENERAL: NAD, A&Ox3 HEAD: Normocephalic. NECK: Supple, trachea midline. No lymphadenopathy. EYES: No scleral icterus. No injection or drainage. CARDIOVASCULAR: Regular rate and rhythm without murmurs, gallops, or rubs. RESPIRATORY: Breath sounds equal bilaterally. No accessory muscle use. GASTROINTESTINAL: Abdomen soft, non-tender, nondistended. MUSCULOSKELETAL: No cyanosis, or edema. Right BKA, chest tube and right side posteriorly. SKIN: Warm and dry. NEURO: No focal neurological deficitis. A/P Problem List: (1) Bipolar 1 disorder ICD Code: F31.9 (2) History of Hodgkin's lymphoma ICD Code: Z85.71 (3) Peritracheal mass ICD Code: R22.2 (4) S/P BKA (below knee amputation) ICD Code: Z89.519 Assessment and Plan Assessment and Plan 41-year-old male with a past medical history of Hodgkin's lymphoma, bipolar disorder admitted with dysphagia. CORK TILE FLOOR LAYER in place for pain control. When necessary IV morphine added for breakthrough pain. Patient tolerating by mouth intake now without dysphagia. Dysphagia Surgery completed Potential for recurrence of Hodgkin's lymphoma as needed etiology for his dysphasia When necessary morphine for pain control Oncology following GI following Holding heparin for surgery Bipolar disorder Continue gabapentin, lithium, BuSpar. DVT prophylaxis Continue Heparin Vahid Castro MD May 25, 2017 13:59
[2017-05-25] MEDS ORDERED: MORPHINE SULFATE 4 MG/ML INJ IV PUSH PRN (14:00)
--- NOTE | 2017-05-25 14:35 | HHI.GIFU ---
Subjective Remarks Had surgery yesterday. States he feels great, actually started eating regular food yesterday- had a hamburger and burkinan fries for dinner last night, had a grilled chicken sandwich with burkinan fries and macaroni today for lunch. Tolerating this well. Able to swallow pills and diet without any difficulty. Objective Vitals I&O Vital Signs Date Time Temp Pulse Resp B/P Pulse Ox O2 Delivery O2 Flow Rate FiO2 05/25/17 13:30 20 05/25/17 12:00 98.1 82 18 124/69 96 05/25/17 09:38 20 05/25/17 08:00 Room Air 05/25/17 08:00 98.1 78 18 117/66 97 05/25/17 04:00 97.3 84 16 100/59 98 05/25/17 00:00 97.8 70 16 113/62 99 05/24/17 22:00 20 05/24/17 21:55 20 05/24/17 21:50 20 05/24/17 20:00 97.8 75 18 136/71 96 05/24/17 20:00 Nasal Cannula 2.00 05/24/17 20:00 98 Nasal Cannula 2.00 05/24/17 16:00 97.8 83 18 134/72 98 05/24/17 15:45 98.7 73 16 123/78 99 Nasal Cannula 3 05/24/17 15:27 15 05/24/17 15:15 73 15 133/93 99 Nasal Cannula 3 05/24/17 15:00 80 17 137/96 99 Nasal Cannula 3 05/24/17 14:45 78 16 137/96 99 Nasal Cannula 3 05/24/17 14:30 75 16 143/86 100 Nasal Cannula 3 I/O 05/24/17 05/24/17 05/24/17 05/25/17 05/25/17 05/25/17 07:00 15:00 23:00 07:00 15:00 23:00 Intake Total 240 ml 2000 ml 390 ml 600 ml Output Total 800 ml 1350 ml 280 ml 825 ml Balance -560 ml 650 ml 110 ml -225 ml Intake Oral 240 ml 0 ml 360 ml 600 ml IV Total 30 ml Other 2000 ml Output Urine Total 800 ml 1150 ml 250 ml 825 ml Chest Tube Drainage Total 30 ml 0 ml Estimated Blood Loss 200 ml # Voids 1 # Bowel Movements 0 0 0 0 Laboratory Laboratory Tests Test 05/25/17 06:37 White Blood Count 12.9 Red Blood Count 4.66 Hemoglobin 13.5 Hematocrit 41.0 Mean Corpuscular Volume 88.0 Mean Corpuscular Hemoglobin 28.9 Mean Corpuscular Hemoglobin 32.9 Concent Red Cell Distribution Width 13.3 Platelet Count 202 Mean Platelet Volume 8.2 Neutrophils (%) (Auto) 76.5 Lymphocytes (%) (Auto) 11.5 Monocytes (%) (Auto) 11.6 Eosinophils (%) (Auto) 0.2 Basophils (%) (Auto) 0.2 Neutrophils # (Auto) 9.9 Lymphocytes # (Auto) 1.5 Monocytes # (Auto) 1.5 Eosinophils # (Auto) 0.0 Basophils # (Auto) 0.0 CBC Comment DIFF FINAL Differential Comment Sodium Level 134 Potassium Level 3.8 Chloride Level 99 Carbon Dioxide Level 26.5 Anion Gap 9 Blood Urea Nitrogen 15 Creatinine 0.96 Estimat Glomerular Filtration 86 Rate Random Glucose 122 Calcium Level 9.1 Imaging Last Impressions Chest X-Ray 05/24/17 0000 Signed Impressions: Service Date/Time: Wednesday, May 24, 2017 15:03 - CONCLUSION: 1. Right apical chest tube in good position without significant pneumothorax. Vj Montero MD Barium Swallow X-Ray 05/17/17 0000 Signed Impressions: Service Date/Time: Wednesday, May 17, 2017 14:23 - CONCLUSION: Focal mucosal lesion at the upper cervical esophagus. Fabricio Stokes MD Physical Exam HEENT: Normocephalic; atraumatic; no jaundice. CHEST: Resp even/unlabored. Drsg, ct right with sanguinous drainage. CARDIAC: RRR ABDOMEN: Soft, nondistended, nontender; no hepatosplenomegaly; bowel sounds are present in all four quadrants. EXTREMITIES: No clubbing, cyanosis, or edema. SKIN: Normal; no rash; no jaundice. NETWORK SUPPORT SPECIALIST: No focal deficits; alert and oriented times three. Assessment and Plan Plan ASSESSMENT - Dysphagia, odynophagia secondary to external compression. Only been able to take liquids since 04/24/17. Barium Swallow (05/17/17)---> Focal mucosal lesion at the upper cervical esophagus. EGD (05/18/17)-----> Proximal esophageal narrowing from extrinsic lesion pinching the esophagus- unable to biopsy, mild gastritis in stomach, s/p biopsy, normal duodenum. Pathology with gastric antral mucosa without significant histologic abnormality. TPN. S/P Right Posterolateral Muscle Sparing Thoracotomy, Resection of Paratracheal Mass, Intercostal Nerve Block- "feels great." Tolerating solid foods- Eating well. Had a hamburger and burkinan fries for dinner last night, had a grilled chicken sandwich with burkinan fries and macaroni today for lunch. Tolerating this well. Able to swallow pills and diet without any difficulty. Will decrease TPN to 40cc/hr x 6 hours and then d/c. - Paratracheal mass. CTA (04/27/17)----> 4.2 x 5.5 cm right paratracheal mass lesion which displaces the trachea leftward, appears isolated. Pathology --> organizing fat necrosis adn hematoma, clinically right paratracheal mass, hematoma and focal foreign body reaction, clinically rith paratracheal mass. CXR (05/17/17)----> 1. Suspected minimal atelectasis or consolidation at the medial right base. This area appears improved from the prior exam. 2. Persistent prominence of the right paratracheal area. This area appears less prominent on the current exam. S/P Right Posterolateral Muscle Sparing Thoracotomy, Resection of Paratracheal Mass, Intercostal Nerve Block (05/24/17). Pathology pending. - Diarrhea. 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 Rivera and myself and this note is written on his behalf Sury Ayala May 25, 2017 14:35
--- NOTE | 2017-05-25 15:14 | PD.CAR.PN ---
CVT Progress Note Subjective/Hospital Course: Pt well known to me from recent hospitalization for chest pain and shortness of breath. He was identified as having a right paratracheal mass and underwent cervical mediastinoscopy with incisional biopsy of the mass. Histology is consistent with a benign, fibrotic lesion without evidence of underlying malignancy. He now returns to the ED with c/o dysphagia, odynophagia and chest pain. In reviewing the chest images, he has a definite mass in the right paratracheal region which wraps around the right bronchus, right pulmonary artery, SVC and surrounding structures. I do not see any extrinsic compression of the esophagus by this mass that would explain his swallowing symptoms. I had a lengthy conversation with the patient. My concern is that given the masses proximity to the surrounding vital neuro-vascular structures, it may not be resectable and any attempt at removing it may lead to serious complications. He is adamant that he cannot go on the way he is and wants to try anything possible. Ideally, it would be beneficial to have the PET scan to identify the area of particular concern in regards to obtaining an underlying diagnosis, however, he states that he cannot go home in his current condition. I will leave the decision regarding his discharge disposition to his primary care providers. However, should he get admitted, I can offer to perform an exploratory right thoracotomy on Tuesday with possible attempts at resecting or at least debulking the mass. He understands that there is a chance that I may not be able to do anything depending upon the intraoperative findings. He also understands that removing/debulking the mass may not alleviate any of his swallowing complaints or chest pressure symptoms. Thanks for allowing me to participate in the care of this patient. 05/24 PROCEDURES 1. Right Posterolateral Muscle Sparing Thoracotomy 2. Resection of Paratracheal Mass 3. Intercostal Nerve Block 05/25 Doing great Reports complete resolution of his dysphagic and odynophagia Ate cheeseburger for lunch and took all his PO meds without difficulty D/C CT today OK to discharge home tomorrow from my standpoint. F/U in 2 weeks Objective: Vital Signs Date Time Temp Pulse Resp B/P Pulse Ox O2 Delivery O2 Flow Rate FiO2 05/25/17 13:30 20 05/25/17 12:00 98.1 82 18 124/69 96 05/25/17 09:38 20 05/25/17 08:00 Room Air 6/28/17 08:00 98.1 78 18 117/66 97 05/25/17 04:00 97.3 84 16 100/59 98 05/25/17 00:00 97.8 70 16 113/62 99 05/24/17 22:00 20 05/24/17 21:55 20 05/24/17 21:50 20 05/24/17 20:00 97.8 75 18 136/71 96 05/24/17 20:00 Nasal Cannula 2.00 05/24/17 20:00 98 Nasal Cannula 2.00 05/24/17 16:00 97.8 83 18 134/72 98 05/24/17 15:45 98.7 73 16 123/78 99 Nasal Cannula 3 05/24/17 15:27 15 05/24/17 15:15 73 15 133/93 99 Nasal Cannula 3 Labs: Laboratory Tests Test 05/25/17 06:37 White Blood Count 12.9 TH/MM3 (4.0-11.0) Red Blood Count 4.66 MIL/MM3 (4.50-5.90) Hemoglobin 13.5 GM/DL (13.0-17.0) Hematocrit 41.0 % (39.0-51.0) Mean Corpuscular Volume 88.0 FL (80.0-100.0) Mean Corpuscular Hemoglobin 28.9 PG (27.0-34.0) Mean Corpuscular Hemoglobin 32.9 % Concent (32.0-36.0) Red Cell Distribution Width 13.3 % (11.6-17.2) Platelet Count 202 TH/MM3 (150-450) Mean Platelet Volume 8.2 FL (7.0-11.0) Neutrophils (%) (Auto) 76.5 % (16.0-70.0) Lymphocytes (%) (Auto) 11.5 % (9.0-44.0) Monocytes (%) (Auto) 11.6 % (0.0-8.0) Eosinophils (%) (Auto) 0.2 % (0.0-4.0) Basophils (%) (Auto) 0.2 % (0.0-2.0) Neutrophils # (Auto) 9.9 TH/MM3 (1.8-7.7) Lymphocytes # (Auto) 1.5 TH/MM3 (1.0-4.8) Monocytes # (Auto) 1.5 TH/MM3 (0-0.9) Eosinophils # (Auto) 0.0 TH/MM3 (0-0.4) Basophils # (Auto) 0.0 TH/MM3 (0-0.2) CBC Comment DIFF FINAL Differential Comment Sodium Level 134 MEQ/L (136-145) Potassium Level 3.8 MEQ/L (3.5-5.1) Chloride Level 99 MEQ/L (98-107) Carbon Dioxide Level 26.5 MEQ/L (21.0-32.0) Anion Gap 9 MEQ/L (5-15) Blood Urea Nitrogen 15 MG/DL (7-18) Creatinine 0.96 MG/DL (0.60-1.30) Estimat Glomerular Filtration 86 ML/MIN (>89) Rate Random Glucose 122 MG/DL (74-106) Calcium Level 9.1 MG/DL (8.5-10.1) Result Diagram: 05/25/17 0637 05/25/17 0637 Pati Fernandez MD May 25, 2017 15:14
[2017-05-25] MEDS ORDERED: CLINIMIX E 4.25/5 2000 mL- >42 mls/hr IV SCH ×3 (20:00)
[2017-05-25] MEDS: FAT EMULSION 20% INJ 250 ML (@10 mls/hr) IV SCH (20:45)
[2017-05-25] MEDS: PANTOPRAZOLE SOD 40 MG DELAYED RELEASE TAB PO SCH (21:42)
[2017-05-25] MEDS: DOCUSATE CALCIUM 240 MG CAP PO SCH (21:52)
[2017-05-26] VITALS: BP 122/65; PULSE 92; RESP 18; TEMP 98.3; O2SAT 96
[2017-05-26 04:00] VITALS: BP 130/71; PULSE 114; RESP 18; TEMP 98.8; O2SAT 96
[2017-05-26] MEDS: RESP: ALBUTEROL 2.5 MG/3 ML NEB (SCH) NEB ×2 (04:00→10:09)
[2017-05-26] MEDS: ALPRAZolam 0.25 MG TAB PO PRN ×3 (04:43→18:35)
[2017-05-26] MEDS: oxyCODONE/ACETAMINOPHEN 5 MG/325 MG TAB PO PRN ×2 (05:12→10:35)
[2017-05-26] MEDS: PCA - TOTAL MG MORPHINE DELIVERED PER SHIFT SCH (05:24)
[2017-05-26 05:31] LABS: HEMATOCRIT 40.5 % (39.0-51.0); MEAN CORPUSCULAR HEMOGLOBIN 29.4 PG (27.0-34.0); MEAN CORPUSCULAR HGB CONC 33.4 % (32.0-36.0); PLATELET COUNT 188 TH/MM3 (150-450); RED CELL DISTRIBUTION WIDTH 13.5 % (11.6-17.2); REVIEW FLAG FINAL; WHITE BLOOD COUNT 11.3 TH/MM3 (4.0-11.0)
[2017-05-26 05:51] LABS: BICARBONATE 29.2 MEQ/L (21.0-32.0)
[2017-05-26 08:00] VITALS: BP 118/79; PULSE 87; RESP 16; TEMP 98.1; O2SAT 95
[2017-05-26] MEDS: SODIUM CHLORIDE 0.9% FLUSH 10 ML FLUSH IV FLUSH SCH (09:00)
[2017-05-26] MEDS: SODIUM CHLORIDE 0.9% FLUSH 5 ML FLUSH IV FLUSH SCH (09:00)
[2017-05-26] MEDS: GABAPENTIN 400 MG CAP PO SCH ×3 (10:28→18:35)
[2017-05-26] MEDS: LITHIUM CARBONATE 300 MG CAP PO SCH (10:28)
[2017-05-26] MEDS: busPIRone HCL 10 MG TAB PO SCH ×3 (10:28→18:35)
[2017-05-26 12:00] VITALS: BP 131/69; PULSE 104; RESP 18; TEMP 98; O2SAT 98
[2017-05-26] MEDS ORDERED: MORPHINE SULFATE 15 MG TAB PO ONE (12:15)
--- NOTE | 2017-05-26 13:23 | HHI.GIFU ---
Subjective Remarks Resting in bed. States he is feeling great and going home today. No difficulty swallowing. No pain. Objective Vitals I&O Vital Signs Date Time Temp Pulse Resp B/P Pulse Ox O2 Delivery O2 Flow Rate FiO2 05/26/17 08:00 98.1 87 16 118/79 95 05/26/17 05:24 20 05/26/17 04:00 98.8 114 18 130/71 96 05/26/17 00:00 98.3 92 18 122/65 96 05/25/17 21:52 20 05/25/17 21:44 20 05/25/17 21:00 Nasal Cannula 2.00 05/25/17 21:00 87 05/25/17 20:00 98.0 90 20 127/75 96 05/25/17 16:00 98.0 82 18 129/69 94 05/25/17 15:42 97 21 05/25/17 14:35 20 05/25/17 13:30 20 I/O 05/25/17 05/25/17 05/25/17 05/26/17 05/26/17 05/26/17 07:00 15:00 23:00 07:00 15:00 23:00 Intake Total 600 ml 1000 ml 1212 ml Output Total 825 ml 800 ml Balance -225 ml 200 ml 1212 ml Intake Oral 600 ml 1000 ml IV Total 1212 ml Output Urine Total 825 ml 800 ml Chest Tube Drainage Total 0 ml # Bowel Movements 0 0 Laboratory Laboratory Tests Test 05/26/17 05:00 White Blood Count 11.3 Red Blood Count 4.60 Hemoglobin 13.5 Hematocrit 40.5 Mean Corpuscular Volume 88.0 Mean Corpuscular Hemoglobin 29.4 Mean Corpuscular Hemoglobin 33.4 Concent Red Cell Distribution Width 13.5 Platelet Count 188 Mean Platelet Volume 8.7 Sodium Level 139 Potassium Level 4.0 Chloride Level 102 Carbon Dioxide Level 29.2 Anion Gap 8 Blood Urea Nitrogen 9 Creatinine 0.92 Estimat Glomerular Filtration 90 Rate Random Glucose 104 Calcium Level 8.9 Imaging Last Impressions Chest X-Ray 05/24/17 0000 Signed Impressions: Service Date/Time: Wednesday, May 24, 2017 15:03 - CONCLUSION: 1. Right apical chest tube in good position without significant pneumothorax. Vj Montero MD Barium Swallow X-Ray 05/17/17 0000 Signed Impressions: Service Date/Time: Wednesday, May 17, 2017 14:23 - CONCLUSION: Focal mucosal lesion at the upper cervical esophagus. Fabricio Stokes MD Physical Exam HEENT: Normocephalic; atraumatic; no jaundice. CHEST: Resp even/unlabored. Drsg, ct right with sanguinous drainage. CARDIAC: RRR ABDOMEN: Soft, nondistended, nontender; no hepatosplenomegaly; bowel sounds are present in all four quadrants. EXTREMITIES: No clubbing, cyanosis, or edema. SKIN: Normal; no rash; no jaundice. PROFESSIONAL CASTER: No focal deficits; alert and oriented times three. Assessment and Plan Plan ASSESSMENT - Dysphagia, odynophagia secondary to external compression. Only been able to take liquids since 04/24/17. Barium Swallow (05/17/17)---> Focal mucosal lesion at the upper cervical esophagus. EGD (05/18/17)-----> Proximal esophageal narrowing from extrinsic lesion pinching the esophagus- unable to biopsy, mild gastritis in stomach, s/p biopsy, normal duodenum. Pathology with gastric antral mucosa without significant histologic abnormality. TPN. S/P Right Posterolateral Muscle Sparing Thoracotomy, Resection of Paratracheal Mass, Intercostal Nerve Block- "feels great." Tolerating solid foods, no difficulty swallowing. Off TPN - Paratracheal mass. CTA (04/27/17)----> 4.2 x 5.5 cm right paratracheal mass lesion which displaces the trachea leftward, appears isolated. Pathology --> organizing fat necrosis adn hematoma, clinically right paratracheal mass, hematoma and focal foreign body reaction, clinically rith paratracheal mass. CXR (05/17/17)----> 1. Suspected minimal atelectasis or consolidation at the medial right base. This area appears improved from the prior exam. 2. Persistent prominence of the right paratracheal area. This area appears less prominent on the current exam. S/P Right Posterolateral Muscle Sparing Thoracotomy, Resection of Paratracheal Mass, Intercostal Nerve Block (05/24/17). Pathology pending. - Diarrhea. 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 Rivera and myself and this note is written on his behalf Sury Ayala May 26, 2017 13:23
[2017-05-26] MEDS ORDERED: MSIR15 PO (15:36)
[2017-05-26] MEDS ORDERED: BUSP10TA PO (15:36)
[2017-05-26] MEDS ORDERED: LORA-392 PO (15:36)
[2017-05-26] MEDS ORDERED: GABA300C5 PO (15:36)
[2017-05-26] MEDS ORDERED: LITH300C2 PO (15:36)
--- NOTE | 2017-05-26 15:44 | HHI.DS ---
Discharge Summary Admission Date May 19, 2017 at 13:48 Discharge Date: May 26, 2017 Admitting Diagnosis dysphagia, chest pain, mediastinal mass (1) Peritracheal mass ICD Code: R22.2 Diagnosis: Principal Procedures Right thoracotomy for mass removal Brief History - From Admission This is a pleasant 41 y/o male just recently discharged from this facility, he has history of Hodgkin's Lymphoma, who came to ER with Dysphagia, Intractable nausea and vomit, No cough, fever or chills. Denies any changes in bowel or bladder habits. He particularly denies any fever, night sweats, weight loss. As we know the patient was just recently discharged on May 03 was admitted on April 28, due to Chest pain and Lung Mass, status post Bone marrow biopsy, status post Mediastinal mass biopsy reported diagnosis of Fibrotic mass, Bone marrow biopsy attempted at bedside 04/28/2017 by hematology oncology.he has Right sided Paratracheal mass 4.2 x 5.5 cms, had Chest CT angiogram 04/27/2017. Imaging studies show right paratracheal mass pushing against the trachea to the left, CT abdomen and Pelvis shows no acute findings. Invasive radiology performed Bone marrow Bx done on 2016. Patient underwent surgical biopsy on 05/02/2017. as per last admission the patient is active with Alcohol, Tobacco and Marijuana, he has Bipolar Disorder. Seen in ER at this time no distress, no nausea, vomit or diarrhea, he states he is been having liquid diet but has more dysphagia for solid food will follow Barium swallow and GI specialist consult placed. CBC/BMP: 05/26/17 0500 05/26/17 0500 Significant Findings Laboratory Tests Test 05/24/17 05/25/17 05/26/17 06:42 06:37 05:00 Estimat Glomerular Filtration 85 ML/MIN (>89) 86 ML/MIN (>89) Rate Random Glucose 108 MG/DL 122 MG/DL (74-106) (74-106) White Blood Count 12.9 TH/MM3 11.3 TH/MM3 (4.0-11.0) (4.0-11.0) Neutrophils (%) (Auto) 76.5 % (16.0-70.0) Monocytes (%) (Auto) 11.6 % (0.0-8.0) Neutrophils # (Auto) 9.9 TH/MM3 (1.8-7.7) Monocytes # (Auto) 1.5 TH/MM3 (0-0.9) Sodium Level 134 MEQ/L (136-145) PE at Discharge GENERAL: NAD, A&Ox3 HEAD: Normocephalic. NECK: Supple, trachea midline. No lymphadenopathy. EYES: No scleral icterus. No injection or drainage. CARDIOVASCULAR: Regular rate and rhythm without murmurs, gallops, or rubs. RESPIRATORY: Breath sounds equal bilaterally. No accessory muscle use. GASTROINTESTINAL: Abdomen soft, non-tender, nondistended. MUSCULOSKELETAL: No cyanosis, or edema. Right posterior wound, bandage. Right BKA (chronic). SKIN: Warm and dry. NEURO: No focal neurological deficitis. Hospital Course Mr. Arguelles was admitted secondary to dysphagia. He was found to have a mediastinal mass. Surgery was performed for removal of the mass and he has resolution of dysphagia. There is some concern that this may have been a recurrence of his Hodgkin's lymphoma and studies are pending. However, patient has been cleared by surgery for discharge home. Chest tube has been out for rhythm 24 hours now. She is medically stable for discharge to home on pain treatments. Medically stable for discharge today. Follow-up with PCP, surgery , oncology, and GI as an outpatient. Pt Condition on Discharge: Stable Discharge Disposition: Discharge Home Discharge Time: <= 30 minutes Discharge Instructions DIET: Follow Instructions for: As Tolerated, No Restrictions Activities you can perform: Regular-No Restrictions Follow up Referrals: Appointment for Follow Up - 2 Weeks with [facility] - 2 Weeks @ [facility] - 1 Week with Veronica Herzog MD PCP Follow-up - 1 Week Surgical - 2 Weeks with Pati Fernandez New Medications: Omeprazole (Omeprazole) 20 Mg Tab 20 MG PO DAILY Reflux #30 Ref 0 TAB Lorazepam (Ativan) 0.5 Mg Tab 0.5 MG PO Q6H PRN anxiety #20 TAB Morphine IR (Morphine IR) 15 Mg Tab 15 MG PO Q4H PRN PAIN SCALE 4 TO 10 #80 TAB Oxycodone Liq (Oxycodone Liq) 20 Mg/Ml Conc 5 MG PO Q6H PRN PAIN SCALE 6 TO 10 #3 ML Continued Medications: Buspirone (Buspirone) 10 Mg Tab 10 MG PO TID Anxiety #90 Ref 0 TAB (This prescription has been renewed) Gabapentin (Gabapentin) 300 Mg Cap 400 MG PO TID Pain Management #90 Ref 0 CAP (This prescription has been renewed) [place] Carbonate ([place] Carbonate) 300 Mg Cap 300 MG PO BID Please see psychaitrist soon to refill this medication Bipolar Days 14 Ref 0 CAP (This prescription has been renewed) Discontinued Medications: Hydrocodone-Acetaminophen ([place]) 10-325 Mg Tab 1 TAB PO Q6HR PRN PAIN #20 Ref 0 TAB Vahid Castro MD May 26, 2017 15:44
[2017-05-26] MEDS ORDERED: MORPHINE SULFATE 15 MG TAB PO PRN (16:00)
[2017-05-26 16:15] VITALS: RESP 16
== END 2017-05-26 21:40 | disposition home or self-care (01) | DRG 982 ==
LOC: NEPC 09:58 → NEDA 12:29 → NEPFCDU 14:47 → OBSVTOIN 05-19 13:48 → N04A 05-19 21:58
PROVIDERS: ADMIT Hospitalist; ATTEND Hospitalist
PROC: 0DB68ZX Excision of Stomach, Via Natural or Artificial Opening Endoscopic, Diagnostic (ICD-10-PCS; principal; 2017-05-19)
PROC: 0BB10ZZ Excision of Trachea, Open Approach (ICD-10-PCS; 2017-05-19)
PROC: 3E0T3CZ (ICD-10-PCS; 2017-05-19)
DX: R22.2 Localized swelling, mass and lump, trunk (principal); J98.11 Atelectasis; J44.9 Chronic obstructive pulmonary disease, unspecified; R13.19 Other dysphagia; Z85.71 Personal history of Hodgkin lymphoma; K29.70 Gastritis, unspecified, without bleeding; R47.02 Dysphasia; F10.10 Alcohol abuse, uncomplicated; F12.10 Cannabis abuse, uncomplicated; F17.200 Nicotine dependence, unspecified, uncomplicated; F31.9 Bipolar disorder, unspecified; F41.9 Anxiety disorder, unspecified; Z85.00 Personal history of malignant neoplasm of unspecified digestive organ; Z92.21 Personal history of antineoplastic chemotherapy; Z92.3 Personal history of irradiation; Z89.511 Acquired absence of right leg below knee
CPT/HCPCS: 36569; 71010; 74230; 76937; 80048; 80178; 81001; 82550; 84484; 85025; 85027; 85610; 85730; 86850; 86900; 86901; 86920; 88305; 88307; 88312; 93005; 94150; 94640; 94664; 96361; 96374; C1751; C9113; C9290; G0378; G8996-GN; G8997-GN; G8998-GN; J0131; J0690; J1100; J1642; J1644; J1885; J2250; J2270; J2370; J2405; J2710; J3010; J3480; J7030; J7040; J7050; J7120; J7613

== ENCOUNTER 2017-07-14 13:48 | Emergency (ER) | payer OTHER ==
[~2017-07-14] VITALS: Ht 175.3 cm; Wt 84.0 kg
[~2017-07-14 13:48] MED LIST changes: +BUSP10TA PO; -HYDR-3366 PO; +LORA-392 PO; +MSIR15 PO; +OMEP20TA PO; +OXYC1CON3 PO
[2017-07-14 13:50] VITALS: BP 146/85; PULSE 96; RESP 17; TEMP 97.9; O2SAT 98
--- NOTE | 2017-07-14 13:57 | PD ---
Physical Exam Date Seen by Provider: Jul 14, 2017 Time Seen by Provider: 13:55 Narrative 42 YOHM C/O N/V. H/O ESOPHOGEAL OBSTRUCTION/TUMOR. WORSE TODAY VS REVIEWED WAITING FOR BED PLACEMENT Data Data Last Documented VS Vital Signs Date Time Temp Pulse Resp B/P Pulse Ox O2 Delivery O2 Flow Rate FiO2 07/14/17 13:50 97.9 96 17 146/85 98 MDM Supervised Visit with REBECA: Jace Gaspar Jul 14, 2017 13:56
== END 2017-07-14 15:00 | disposition left against medical advice (07) ==
LOC: NED 13:48
DX: R11.2 Nausea with vomiting, unspecified (principal); Z53.21 Procedure and treatment not carried out due to patient leaving prior to being seen by health care provider
CPT/HCPCS: 99281